=== PATIENT | female | born 1945 | race Caucasian/White ===

== ENCOUNTER → 2016-12-27 | Outpatient (CLI) | payer MEDICARE, OTHER ==
[~2016-12-27] MED LIST: CYCL5TAB PO; DILT180C52 PO; FENT1PAT65 TOP; FISH1CAP2 PO; GABA-336 PO; LEVO150T11 PO; METO25TA6 PO; MULT-806 PO; OMEP40CA52 PO; OXYC15TA50 PO
== END ==
LOC: WC.BC 14:48
DX: Z12.31 Encounter for screening mammogram for malignant neoplasm of breast (principal); N64.59 Other signs and symptoms in breast; Z80.3 Family history of malignant neoplasm of breast
CPT/HCPCS: 77063; G0202

== ENCOUNTER 2017-07-17 12:01 | Observation (INO) ==
[2017-07-17] MEDS: SALINE FLUSH 10ml SYRINGE IVF PRN ×3 (12:27→20:27)
--- NOTE | 2017-07-17 12:35 | Emergency Department Report ---
SOB HPI - General Chief Complaint: Recheck/Abnormal Lab/Rx Stated Complaint: soa Time Seen by Provider: 07/17/17 12:20 Source: patient Mode of arrival: ambulatory Limitations: no limitations - History of Present Illness Pt presents with a c/o increasing SOA over the last several weeks. She reports having lab drawn at her PCP office who then called her today to be seen in the ED 2/2 a resulted D dimer of over 2000. Pt has a history of post op PE in 2008 and is not currently on any anticoagulant. MD Complaint: shortness of breath, chest pain Onset (ago): week(s) Severity: mild Consistency/Duration: constant Relieving factors: nothing Exacerbating factors: nothing Associated symptoms: chest pain Treatment prior to arrival: none - Related Data Home Medications Medication Instructions Recorded Confirmed dilTIAZem HCl [Cartia Xt] 180 mg PO DAILY #0 08/05/11 07/17/17 Levothyroxine Sodium 150 mcg PO SUTUTHSA #0 tab 03/07/15 07/17/17 [place]-3 Fatty Acids/Fish Oil [Fish 3,000 mg PO DAILY #0 cap 03/07/15 07/17/17 Oil 1,000 mg Capsule] Omeprazole 40 mg PO DAILY #0 cap 03/07/15 07/17/17 Gabapentin 100 mg PO BID #0 cap 03/08/15 07/17/17 Cetirizine HCl [Zyrtec] 10 mg PO DAILY 07/17/17 07/17/17 Cholecalciferol (Vitamin D3) 50,000 unit PO WEEKLY 07/17/17 07/17/17 [Vitamin D3] Diclofenac [Voltaren] 1 applic TP PRN PRN 07/17/17 07/17/17 Docusate Calcium [Stool Softener] 240 mg PO BID 07/17/17 07/17/17 FentaNYL PATCH [Duragesic Patch] 25 mcg TD WEEKLY 07/17/17 07/17/17 Levothyroxine Sodium 125 mcg PO MOWEFR 07/17/17 07/17/17 Melatonin 10 mg PO HS PRN 07/17/17 07/17/17 Metoprolol Succinate 75 mg PO DAILY 07/17/17 07/17/17 Previous Rx's Medication Instructions Recorded Rivaroxaban [Xarelto] 15 mg PO BID 21 Days #42 tab 07/18/17 Rivaroxaban [Xarelto] 20 mg PO WS #30 tab 07/18/17 Allergies Allergy/AdvReac Type Severity Reaction Status Date / Time iodine Allergy Intermediate SWELLING Verified 07/17/17 12:06 levofloxacin Allergy Intermediate CHEST PAIN Verified 07/17/17 12:06 codeine Allergy Mild NAUSEA, Verified 07/17/17 12:06 RELUX, CHEST PAIN lisinopril Allergy Mild PROBLEMS Verified 07/17/17 12:06 BREATHING sulfamethoxazole Allergy Mild NAUSEA, Verified 07/17/17 12:06 ANAPHYLAXSIS trimethoprim Allergy Mild NAUSEA, Verified 07/17/17 12:06 ANAPHYLAXSIS morphine Allergy Unknown CHEST PAIN Verified 07/17/17 12:06 vancomycin Allergy Unknown Verified 07/17/17 12:06 solifenacin [From [facility]] Allergy Verified 07/17/17 12:06 Review of Systems All systems: reviewed and negative except as stated Constitutional: Denies: fever, chills ENT: Denies: congestion Cardiovascular: Reports: chest pain. Denies: palpitations Respiratory: Reports: dyspnea. Denies: cough Gastrointestinal: Denies: nausea, vomiting Neurological: Denies: weakness Psychiatric: Denies: anxiety PFSH Patient Stated Medical History Other HEENT Yes: wears glasses Hypertension Yes Pulmonary Embolism Yes Clinic Medical History Bilateral pulmonary embolism (Acute Medical) - Social History Smoking status: Never smoker Physical Exam - Limitations Limitations: no limitations - General General appearance: alert, in no apparent distress - Normal Exams: Head:: Normocephalic without trauma Neck:: Full range of motion, without adenopathy Chest/Respirations:: Clear all claudio, with good airflow, and symmetry bilaterally Cardiovascular:: Regular rate and rhythm, without murmur or gallop, Pulses 2+ all extremities Abdomen:: Bowel sounds positive, soft, non-tender, non-distended Musculoskeletal:: No tenderness, or deformity noted, good range of motion, all extremities Integumentary:: No rashes Neurological:: Patient is alert, and oriented, cranial nerves, motor/sensory/ cerebellar, exams w/o gross deficits, to observation Psychiatric:: Patient exhibits, appropriate attention, emotion and affect Course Vital Signs Temperature 97.5 F 07/17/17 12:06 Pulse Rate 68 07/17/17 12:06 Respiratory Rate 19 07/17/17 12:06 Blood Pressure 168/73 H 07/17/17 12:06 Pulse Oximetry 94 07/17/17 12:06 Temperature 95.6 F L 07/18/17 07:21 Pulse Rate 62 07/18/17 11:50 Respiratory Rate 14 07/18/17 11:50 Blood Pressure 179/78 H 07/18/17 11:50 Pulse Oximetry 98 07/18/17 11:50 Shortness of Breath/Dyspnea - [facility] Narrative Medical decision making narrative: Labs reviewed and although D Dimer lower than what was reported by PCP office CT reveals scattered PEs to right and left lungs. Results discussed with pt. Pt to be admitted to hospitalist for continued care. Initial Lovenox ordered. - Differential Diagnosis Likely: acute exacerbation of chronic obstructive airways disease, congestive heart failure, community acquired pneumonia, pulmonary embolism - Lab Data Attestation: I reviewed the patient's lab results. Result diagrams: 07/17/17 12:28 07/17/17 12:28 Lab Results 07/17/17 07/17/17 07/17/17 Range/Units 12:28 12:28 12:28 WBC 7.3 (4.5-11.0) T/MM3 RBC 5.45 H (4.00-5.20) M/MM3 Hgb 15.3 (12-16) GM/DL Hct 47.5 H (36-46) % MCV 87.2 (80-100) UM3 MCH 28.1 (26-34) UUG MCHC 32.2 (31-37) GM/DL RDW Std Deviation 42.3 (36.9-50.2) FL Plt Count 206 (130-400) T/MM3 MPV 9.7 (9.4-12.4) UM3 Neutrophils % (Manual) 64.0 (33-66) % Lymphocytes % (Manual) 29.0 (23-45) % Monocytes % (Manual) 1.0 (0-9.0) % Eosinophils % (Manual) 5.0 H (0-4) % Basophils % (Manual) 1.0 (0-2) % Neutrophils # (Manual) 4.7 (1.8-7.7) T/MM3 Lymphocytes # (Manual) 2.1 (1-4.8) T/MM3 Monocytes # (Manual) 0.1 (0-0.8) T/MM3 Eosinophils # (Manual) 0.4 (0-0.5) T/MM3 Basophils # (Manual) 0.1 (0-0.2) T/MM3 RBC Morph Comment Normal D-Dimer 532 H (0-230) NG/ML Turbidity 23 H (0-20) Sodium 143 (134-144) MEQ/L Potassium 4.3 (3.6-5) MEQ/L Chloride 106 (98-107) MEQ/L Carbon Dioxide 27 (22-30) MEQ/L Anion Gap 10 (5-15) MEQ/L BUN 26.0 H (7-17) MG/DL Creatinine 1.0 (0.7-1.2) MG/DL GFR Calculation 55 BUN/Creatinine Ratio 26 (6-26) RATIO Glucose 120 H (65-110) MG/DL Calculated Osmolality 281 H (261-280) MOSM/KG Calcium 9.4 (8.4-10.2) MG/DL Total Bilirubin 0.70 (0.20-1.30) MG/DL Icterus Index < 2 (0-7) AST 41 H (14-36) U/L ALT 72 H (9-52) U/L Alkaline Phosphatase 108 (38-126) U/L Troponin I 0.023 (0-0.12) ng/ml Total Protein 7.4 (6.3-8.2) G/DL Albumin 4.3 (3.5-5.0) G/DL Globulin 3.1 (2.4-3.6) G/DL Albumin/Globulin Ratio 1.4 (1.1-2.2) RATIO Specimen Hemolysis < 15 (0-25) - Radiology Data Attestation: I reviewed the patient's radiology results. (per radiologist read) Disposition Clinical Impression: PE Disposition: 02 To OBS [facility] Condition: Stable - Seen By: midlevel
[2017-07-17] MEDS ORDERED: DiphenhydrAMINE 50 MG/ML INJECTION IVP ONE (12:47)
[2017-07-17] MEDS ORDERED: IOHEXOL 350mg/ml 75ml INJECTION ONE (12:53)
[2017-07-17] MEDS ORDERED: NS 100 ML ONE (12:53)
[2017-07-17] MEDS ORDERED: SALINE FLUSH 10ml SYRINGE ONE (12:53)
--- OUTSIDE RECORDS SUMMARY | 2017-07-17 13:27 | External Medical Summary | Referral Summary ---
:1945 Author Organization [facility] Address [address] [place] [address] [place] [phone] Care Team Providers Name Role Phone Moon Ruiz Primary Care Physician Encounter VC Date(s): 10/20/15 - 10/20/15 [facility] [address] [place] [phone]- [place] Discharge Diagnosis: Chronic low back pain Discharge Diagnosis: Excessive cerumen in right ear canal Discharge Disposition: 01-Home or Self Care Attending Physician: Moon Ruiz DO Admitting Physician: Moon Ruiz DO Vital Signs Most recent to oldest [Reference Range]: 1 Temperature Tympanic [36.6-38.1 degC] 36.9 degC (10/20/15 7:57 AM) Peripheral Pulse Rate [60-100 bpm] 69 bpm (10/20/15 7:57 AM) Respiratory Rate [14-20 br/min] 17 br/min (10/20/15 7:57 AM) Blood Pressure [90-140/60-90 mmHg] 130/80 mmHg (10/20/15 7:57 AM) SpO2 98 % (10/20/15 7:57 AM) Problem List Condition Effective Dates Status Health Status Informant Allergy(Confirmed) Active Asthma(Confirmed) Active Atrial fibrillation(Confirmed) Active Automatic implantable cardiac Active defibrillator in situ(Confirmed) Bladder problem(Confirmed) Active Chicken pox(Confirmed) Active Chronic low back pain(Confirmed) Active Congestive heart failure(Confirmed) Active Depression(Confirmed) Active Blood clots lungs/legs(Confirmed) Active Dysuria(Confirmed) Active GERD (gastroesophageal reflux Active disease)(Confirmed) Goiter(Confirmed) Active Gout(Confirmed) Active Heart disease(Confirmed) Active Hepatitis(Confirmed) Active Hypertension(Confirmed) Active Hyperthyroidism(Confirmed) Resolved Hypertrophic Active cardiomyopathy(Confirmed) Hypothyroidism(Confirmed) Active Incontinence - stress(Confirmed) Active Urine Infection(Confirmed) Active Irregular heart rhythm(Confirmed) Active Low back pain(Confirmed) Active Lumbosacral radiculopathy(Confirmed) Active Coumadin use - penitentiary current use Active anticoagul(Confirmed) Migraine headache(Confirmed) Active OA (osteoarthritis)(Confirmed) Active Onychomycosis/mycotic Active nail(Confirmed) Pain in limb(Confirmed) Active Postlaminectomy syndrome(Confirmed) Active Recurrent UTI(Confirmed) Active Assymetrical septal Active hypertrophy(Confirmed) high sun exposure, history of 4 Active blistering sunburns(Confirmed) Tension headache(Confirmed) Active Thyroid disease(Confirmed) Active TMJ (dislocation of Active temporomandibular joint)(Confirmed) Trigonitis with hematuria(Confirmed) Active Ventricular tachycardia(Confirmed) Active Allergies, Adverse Reactions, Alerts Substance Reaction Severity Status codeine nausea,reflux,chest pain Active pain iodine Angiodema Mild Active levofloxacin Adverse Reaction Active chest pain lisinopril problems breathing Mild Active Adverse Reaction metoprolol Anaphylaxis Severe Active mirtazapine HEADACHES Active morphine jerking, chest pain- possible Active nitrofurantoin unknown Active sulfamethoxazole nausea Severe Active anaphylaxsis trimethoprim nausea Severe Active anaphylaxsis Medications Cardizem CD 180 mg/24 hours oral capsule, extended release See Instructions, 1 CAPS ORAL BID, # 60 caps, 3 Refill(s), eRx: [facility] [id number], 1 CAPS ORAL BID Start Date: 07/11/15 Status: Orderedcyclobenzaprine 10 mg oral tablet 10 mg 1 tabs, Oral, Daily, # 30 tabs, 0 Refill(s) Start Date: 07/20/15 Status: OrderedfentaNYL 25 mcg/hr transdermal film, extended release 1 patches, Topical, q72hr, as directed on package labeling / DO NOT FILL UNTIL , # 10 patches, 0 Refill(s) Start Date: 09/27/15 Status: OrderedFish Oil 1000 mg oral capsule 1,000 mg 1 caps, Oral, BID, 0 Refill(s) Start Date: 07/07/14 Status: Orderedgabapentin 100 mg oral capsule See Instructions, 1 CAPS ORAL TID, # 270 caps, 1 Refill(s), Pharmacy: [facility] [id number], 1 CAPS ORAL TID Start Date: 07/27/15 Status: OrderedGinseng Ginseng, 1,000 mg, PRN Other (See Comment), 0 Refill(s) Start Date: 10/11/15 Status: Orderedlevothyroxine 150 mcg (0.15 mg) oral tablet 150 mcg 1 tabs, Oral, Daily, Recheck TSH in 3 months, # 90 tabs, 0 Refill(s), Pharmacy: [place], [place], 1 tabs Oral Daily,Instr:Recheck TSH in 3 months Start Date: 10/20/15 Status: Orderedmetoprolol tartrate 25 mg oral tablet 25 mg 1 tabs, Oral, Daily, 0 Refill(s) Start Date: 01/26/15 Status: OrderedMucinex D 600 mg, Oral, BID, 0 Refill(s) Start Date: 10/11/15 Status: OrderedoxyCODONE 15 mg oral tablet 7.5 mg 0.5 tabs, Oral, q6hr, as needed for pain, # 30 tabs, 0 Refill(s), other reason (Rx) Start Date: 10/02/15 Status: OrderedPriLOSEC 40 mg oral delayed release capsule See Instructions, TAKE 1 TABLET BY MOUTH EVERY DAY., # 90 caps, 1 Refill(s), Pharmacy: [facility] [id number], TAKE 1 TABLET BY MOUTH EVERY DAY. Start Date: 08/15/15 Status: OrderedSingulair 10 mg oral tablet See Instructions, 1 TABS ORAL QPM, # 30 tabs, 3 Refill(s), eRx: [facility] [id number], 1 TABS ORAL QPM Start Date: 09/12/15 Status: OrderedStool softner Stool softner, 250 mg, BID, 0 Refill(s) Start Date: 10/11/15 Status: OrderedVoltaren Topical See Instructions, Pain, unk dose, 0 Refill(s) Start Date: 10/11/15 Status: Orderedzolpidem 5 mg oral tablet 5 mg 1 tabs, Oral, Bedtime (once a day), as needed for sleep, Ayde Tan [phone], # 30 tabs, 5 Refill(s), CAN FILL ON 02-24-15 Start Date: 07/20/15 Status: Ordered Results Chemistry Most recent to oldest [Reference Range]: 1 Sodium Lvl [135-144 mEq/L] 142 mEq/L (10/20/15 7:48 AM) Potassium Lvl [3.5-5.2 mEq/L] 4.1 mEq/L (10/20/15 7:48 AM) Chloride [99-111 mEq/L] 105 mEq/L (10/20/15 7:48 AM) CO2 [22-31 mEq/L] 29 mEq/L (10/20/15 7:48 AM) AGAP [3-20] 8 (10/20/15 7:48 AM) BUN [10-20 mg/dL] 22 mg/dL *HI* (10/20/15 7:48 AM) Glucose Lvl [70-99 mg/dL] 127 mg/dL *HI* (10/20/15 7:48 AM) Creatinine Lvl [0.57-1.11 mg/dL] 0.85 mg/dL (10/20/15 7:48 AM) eGFR [>60 mL/min] >60 mL/min 1 (10/20/15 7:48 AM) Calcium Lvl [8.9-10.5 mg/dL] 9.1 mg/dL (10/20/15 7:48 AM) Albumin Lvl [3.4-4.8 gm/dL] 4.0 gm/dL (10/20/15 7:48 AM) Total Protein [6.2-8.1 gm/dL] 6.5 gm/dL (10/20/15 7:48 AM) Globulin [1.8-4.0 gm/dL] 2.5 gm/dL (10/20/15 7:48 AM) ALT [0-55 U/L] 37 U/L (10/20/15 7:48 AM) AST [5-34 U/L] 32 U/L (10/20/15 7:48 AM) Alk Phos [40-150 U/L] 103 U/L (10/20/15 7:48 AM) Bili Total [0.2-1.2 mg/dL] 0.4 mg/dL (10/20/15 7:48 AM) 1Result Comment: Multiply eGFR results by 1.21 for race. Immunizations Vaccine Date Refusal Reason pneumococcal 13-valent conjugate vaccine 05/30/15 pneumococcal 23-polyvalent vaccine 10/10/08 tetanus/diphtheria/pertussis, acel(Tdap) 10/10/08 zoster vaccine live 06/08/13 Procedures Procedure Date Related Diagnosis Body Site Rt L5-S1 selective nerve root block 10/29/11 Lumbar/Thoracic mylogram 10/23/11 Caudal 06/25/11 Bilateral L5-S1 Facet 06/11/11 Colonoscopy 2010 Pacemaker care 2009 T9-L5 Fusion sythes1 06/12/09 Cystoscopy and urethral calibration2 09/22/06 Cystourethroscopy, removal of foreign body, 05/22/06 & sling3 suburethral Implantation 03/28/06 suburethral Implantation 02/19/06 suburethral Implantation 10/25/05 suburethral Implantation 09/04/05 suburethral Implantation4 08/07/05 Cataract extraction, bilateral 2004 Placement of defribrillator 2003 suburethral Implantation 09/05/99 suburethral Implantation 06/18/99 suburethral Implantation 05/23/99 Hysterectomy, partial 1975 Appendectomy 1964 Cholecystectomy Gallbladder Removal of defibrillator Surgery 1Dr. [id number]. [id number]. [id number]? Social History Social History Type Response Smoking Status Never smoker Assessment and Plan Extracted from: Title: Office Visit Note Author: Moon Ruiz DO Date: 10/20/15 Assessment/Plan Chronic low back pain Patient would like to continue current pain medication regimen at this time. Controlled substance agreement signed. Return to clinicin 3 months. Ordered: Office Visit Level 4 Est 25069 Excessive cerumen in right ear canal Ear lavage performed today with resolution of the impaction. Ordered: Office Visit Level 4 Est 05536 High risk medication use CMP today. We will also get a TSH for hypothyroidism since we are drawinglabs. Ordered: Comprehensive Metabolic Panel Office Visit Level 4 Est 73153
--- OUTSIDE RECORDS SUMMARY | 2017-07-17 13:27 | External Medical Summary | Referral Summary ---
:1945 Author Organization [facility] Address [address] [place] [address] Care Team Providers Name Role Phone Moon Ruiz Primary Care Physician Encounter VC Date(s): 01/12/15 - 01/12/15 [facility] [address] [place] [address]- [place] Discharge Diagnosis: Automatic implantable cardiac defibrillator in situ Discharge Diagnosis: Septal defect Discharge Diagnosis: Hypertrophic cardiomyopathy Discharge Diagnosis: Ventricular tachycardia Discharge Disposition: 01-Home or Self Care Attending Physician: Amada Santa MD Admitting Physician: Amada Santa MD Vital Signs Most recent to oldest [Reference Range]: 1 Peripheral Pulse Rate [60-100 bpm] 64 bpm (01/12/15 2:25 PM) Blood Pressure [90-140/60-90 mmHg] 124/72 mmHg (01/12/15 2:25 PM) Problem List Condition Effective Dates Status Health [...] heart rhythm(Confirmed) Active Low back pain(Confirmed) Active 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 anticoagul(Confirmed) Migraine headache(Confirmed) Active [...] BID, # 60 caps, 3 Refill(s), eRx: [facility] [id number], 1 CAPS ORAL BID Start Date: 07/11/15 Status: Orderedcyclobenzaprine 10 mg oral tablet 10 mg 1 tabs, Oral, Daily, # 30 tabs, 0 Refill(s) Start Date: 07/20/15 Status: OrderedfentaNYL 25 mcg/hr transdermal film, extended release 1 patches, Topical, q72hr, as directed on package labeling, # 10 patches, 0 Refill(s) Start Date: 06/29/15 Status: OrderedFish Oil 1000 mg oral capsule 1,000 mg 1 caps, Oral, BID, 0 Refill(s) Start Date: 07/07/14 Status: Orderedgabapentin 100 mg oral capsule See Instructions, 1 CAPS ORAL TID, # 90 caps, eRx: [facility] [id number], 1 CAPS ORAL TID Start Date: 07/18/15 Status: Orderedlevothyroxine 175 mcg (0.175 mg) oral tablet See Instructions, 1 TABS ORAL DAILY,INSTR:LAB TO BE RE CHECKED IN 2 MONTHS./ PLEASE NOTE NEW DOSE., #60 tabs, 2 Refill(s), eRx: [facility] [id number], 1 TABS ORAL DAILY,INSTR:LAB TO BE RE CHECKED IN 2 MONTHS./PLEASE NOTE NEW DOSE. Start Date: 04/19/15 Status: Orderedmetoprolol tartrate 25 mg oral tablet 25 mg 1 tabs, Oral, Daily, 0 Refill(s) Start Date: 01/26/15 Status: OrderedoxyCODONE 7.5 mg oral tablet See Instructions, 1 tabs Oral q4hr or q6h as needed for pain, # 60 tabs, 0 Refill(s) Start Date: 06/28/15 Status: OrderedPriLOSEC 40 mg oral delayed release capsule See Instructions, TAKE 1 TABLET BY MOUTH EVERY DAY., # 90 unknown unit, 3 Refill (s), eRx: [facility] [id number], TAKE 1 TABLET BY MOUTH EVERY DAY. Start Date: 07/21/14 Status: OrderedSingulair 10 mg oral tablet See Instructions, 1 TABS ORAL QPM, # 30 tabs, eRx: [facility] [id number], 1 TABS ORAL QPM Start Date: 07/14/15 Status: Orderedzolpidem 5 mg oral tablet 5 mg 1 tabs, Oral, Bedtime (once a day), as needed for sleep, Ayde Tan [phone], # 30 tabs, 5 Refill(s), CAN FILL ON 02-24-15 Start Date: 07/20/15 Status: Ordered Results No data available for this section Immunizations Vaccine Date Refusal Reason pneumococcal 13-valent conjugate vaccine 05/30/15 pneumococcal 23-polyvalent vaccine 10/10/08 tetanus/diphtheria/pertussis, acel(Tdap) 10/10/08 zoster vaccine live 06/08/13 Procedures Procedure Date Related Diagnosis Body Site Rt L5-S1 selective nerve root block 10/29/11 Lumbar/Thoracic mylogram 10/23/11 Caudal 06/25/11 Bilateral L5-S1 Facet 06/11/11 Colonoscopy 2011 Pacemaker care 2009 T9-L5 Fusion sythes1 06/12/09 Cystoscopy and urethral calibration2 09/22/06 Cystourethroscopy, removal of foreign body, 05/22/06 & sling3 suburethral Implantation 03/28/06 suburethral Implantation 02/19/06 suburethral Implantation 2/10/06 suburethral Implantation 09/04/05 suburethral Implantation4 08/07/05 Cataract extraction, bilateral 2005 Placement of defribrillator 2003 suburethral Implantation 09/05/99 suburethral Implantation 06/18/99 suburethral Implantation 05/23/99 Colonoscopy 1998 Hysterectomy, partial 1975 Appendectomy 1964 Cholecystectomy Gallbladder Removal of defibrillator Surgery 1Dr. [id number]. [id number]. [id number]? Social History Social History Type Response Smoking Status Never smoker Assessment and Plan Extracted from: Title: Office Visit Note Author: Amada Santa MD Date: 01/12/15 Assessment/Plan 1.Ventricular tachycardia Ordered: Icd Device Progr Eval Dual 62727 Office Visit Level 3 Est 63895 Return to Clinic 2.Automatic implantable cardiac defibrillator in situ Ordered: Icd Device Progr Eval Dual 40758 Office Visit Level 3 Est 76965 Return to Clinic 3.Hypertrophic cardiomyopathy Ordered: Icd Device Progr Eval Dual 66903 Office Visit Level 3 Est 99232 Return to Clinic Referrals to Other Providers Referred by: Amada Santa MD
--- OUTSIDE RECORDS SUMMARY | 2017-07-17 13:27 | External Medical Summary | Referral Summary ---
:1945 Author Organization [facility] Address [address] [place] [address] Care Team Providers Name Role Phone Moon Ruiz Primary Care Physician Encounter VC Date(s): 12/05/15 - 12/05/15 [facility] [address] [place] [address]- [place] Discharge Diagnosis: Automatic implantable cardiac defibrillator in situ Discharge Diagnosis: VT (ventricular tachycardia) Discharge Diagnosis: Hypertrophic cardiomyopathy Discharge Disposition: 01-Home or Self Care Attending Physician: Amada Santa MD Admitting Physician: Amada Santa MD Vital Signs No data available for this section Problem List Condition Effective Dates Status Health [...] Hyperthyroidism(Confirmed) Resolved Hypertrophic Active cardiomyopathy(Confirmed) Hypothyroidism(Confirmed) Active Pre-diabetes(Confirmed) Active Incontinence - stress(Confirmed) Active Urine Infection(Confirmed) Active Irregular heart rhythm(Confirmed) Active Low back pain(Confirmed) Active Lumbosacral radiculopathy(Confirmed) Active 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(Confirmed) Migraine headache(Confirmed) Active [...] lisinopril problems breathing Mild Active Adverse Reaction mirtazapine HEADACHES Active morphine jerking, chest pain- possible Active nitrofurantoin unknown Active sulfamethoxazole nausea Severe Active anaphylaxsis trimethoprim nausea Severe Active anaphylaxsis Medications Cardizem CD 180 mg/24 hours oral capsule, extended release See Instructions, 1 CAPS ORAL BID, # 60 caps, 3 Refill(s), Pharmacy: [facility] [place], [place], 1 CAPS ORAL BID Start Date: 11/16/15 Status: Orderedcyclobenzaprine 10 mg oral tablet 10 mg 1 tabs, Oral, Daily, # 30 tabs, 0 Refill(s) Start Date: 07/20/15 Status: OrderedfentaNYL 25 mcg/hr transdermal film, extended release 1 patches, Topical, q72hr, as directed on package labeling / DO NOT FILL UNTIL , # 10 patches, 0 Refill(s) Start Date: 11/29/15 Status: OrderedFish Oil 1000 mg oral capsule 1,000 mg 1 caps, Oral, BID, 0 Refill(s) Start Date: 07/07/14 Status: Orderedgabapentin 100 mg oral capsule See Instructions, 1 CAPS ORAL TID, # 270 caps, 1 Refill(s), [id number], 1 CAPS ORAL TID Start Date: 07/27/15 Status: OrderedGinseng Ginseng, 1,000 mg, PRN Other (See Comment), 0 Refill(s) Start Date: 10/11/15 Status: Orderedlevothyroxine 150 mcg (0.15 mg) oral tablet 150 mcg 1 tabs, Oral, Daily, Recheck TSH in 3 months, # 90 tabs, 0 Refill(s), Pharmacy: [facility] [place], [place], 1 tabs Oral Daily,Instr:Recheck TSH in 3 months Start Date: 10/20/15 Status: Orderedlidocaine 5% topical film 1 patches, Topical, Daily, # 30 patches, 0 Refill(s), Pharmacy: [facility] [place], [place] Start Date: 11/07/15 Status: Orderedmetoprolol succinate 50 mg oral tablet, extended release 25 mg 0.5 tabs, Oral, Daily, 0 Refill(s) Start Date: 12/05/15 Status: OrderedMucinex D 600 mg, Oral, BID, 0 Refill(s) Start Date: 10/11/15 Status: OrderedoxyCODONE 15 mg oral tablet 7.5 mg 0.5 tabs, Oral, q6hr, as needed for pain, # 30 tabs, 0 Refill(s), other reason (Rx) Start Date: 10/02/15 Status: OrderedPriLOSEC 40 mg oral delayed release capsule See Instructions, TAKE 1 TABLET BY MOUTH EVERY DAY., # 90 caps, 1 Refill(s), Pharmacy: [facility] [id number], TAKE 1 TABLET BY MOUTH EVERY DAY. Start Date: 08/15/15 Status: OrderedSingulair 10 mg oral tablet See Instructions, 1 TABS ORAL QPM, # 30 tabs, 3 Refill(s), eRx: [facility] [id number], 1 TABS ORAL QPM Start Date: 09/12/15 Status: OrderedStool softner Stool softner, 250 mg, BID, 0 Refill(s) Start Date: 10/11/15 Status: OrderedVoltaren Topical See Instructions, Pain, unk dose, 0 Refill(s) Start Date: 10/11/15 Status: Orderedzolpidem 10 mg oral tablet 5 mg 0.5 tabs, Oral, Bedtime (once a day), as needed for sleep, # 15 tabs, 0 Refill(s) Start Date: 11/09/15 Stop Date: 12/09/15 Status: Ordered Results No data available for this section Immunizations Vaccine Date Refusal Reason pneumococcal 13-valent conjugate vaccine 05/30/15 pneumococcal 23-polyvalent vaccine 10/10/08 tetanus/diphtheria/pertussis, acel(Tdap) 10/10/08 zoster vaccine live 06/08/13 Procedures Procedure Date Related Diagnosis Body Site Rt L5-S1 selective nerve root block 10/29/11 Lumbar/Thoracic mylogram 10/23/11 Caudal 06/25/11 Bilateral L5-S1 Facet 06/11/11 Colonoscopy 2011 Pacemaker care 2010 T9-L5 Fusion sythes1 06/12/09 Cystoscopy and urethral calibration2 09/22/06 Cystourethroscopy, removal of foreign body, 05/22/06 & sling3 suburethral Implantation 03/28/06 suburethral Implantation 02/19/06 suburethral Implantation 10/25/05 suburethral Implantation 09/04/05 suburethral Implantation4 08/07/05 Cataract extraction, bilateral 2004 Placement of defribrillator 2003 suburethral Implantation 09/05/99 suburethral Implantation 06/18/99 suburethral Implantation 05/23/99 Hysterectomy, partial 1975 Appendectomy 1964 Cholecystectomy Gallbladder Removal of defibrillator Surgery 1Dr. [id number]. [id number]. [id number]? Social History Social History Type Response Smoking Status Never smoker Assessment and Plan No data available for this section
--- OUTSIDE RECORDS SUMMARY | 2017-07-17 13:29 | External Medical Summary | Referral Summary ---
:1945 Author Organization [facility] Address [address] [place] [address] [place] [address] Care Team Providers Name Role Phone Moon Ruiz Primary Care Physician Encounter VC Date(s): 01/26/15 - 01/26/15 [facility] [address] [place] [address] [place] [phone] Discharge Diagnosis: Osteoarthritis Discharge Diagnosis: Back pain Discharge Disposition: 01-Home or Self Care Attending Physician: Tasha Mar MD Admitting Physician: Tasha Mar MD Referring Physician: Qi Whitehead MD Vital Signs Most recent to oldest [Reference Range]: 1 Peripheral Pulse Rate [60-100 bpm] 71 bpm (01/26/15 1:58 PM) Blood Pressure [90-140/60-90 mmHg] 144/77 mmHg *HI* (01/26/15 1:58 PM) Problem List Condition Effective Dates Status Health Status Informant Allergy(Confirmed) Active Asthma(Confirmed) Active Atrial fibrillation(Confirmed) Active Bladder problem(Confirmed) Active Chicken pox(Confirmed) Active Chronic [...] Low back pain(Confirmed) Active 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 anticoagul(Confirmed) Migraine headache(Confirmed) Active OA (osteoarthritis)(Confirmed) Active Onychomycosis/mycotic Active nail(Confirmed) Pain in limb(Confirmed) Active Postlaminectomy syndrome(Confirmed) Active Recurrent UTI(Confirmed) Active Assymetrical septal Active hypertrophy(Confirmed) high sun exposure, history of 4 Active blistering sunburns(Confirmed) Tension headache(Confirmed) Active Thyroid disease(Confirmed) Active TMJ (dislocation of Active temporomandibular joint)(Confirmed) Trigonitis with hematuria(Confirmed) Active Allergies, Adverse Reactions, Alerts Substance Reaction [...] BID, # 60 caps, 3 Refill(s), eRx: [facility] [id number], 1 CAPS ORAL BID Start Date: 07/11/15 Status: Orderedcyclobenzaprine 10 mg oral tablet See Instructions, TAKE ONE TABLET BY MOUTH THREE TIMES A DAY, # 90 tabs, 2 Refill(s), eRx: [facility] #[id number], TAKE ONE TABLET BY MOUTH THREE TIMES A DAY Start Date: 06/20/15 Status: OrderedfentaNYL 25 mcg/hr transdermal film, extended release 1 patches, Topical, q72hr, as directed on package labeling, # 10 patches, 0 Refill(s) Start Date: 06/29/15 Status: OrderedFish Oil 1000 mg oral capsule 3,000 mg, Oral, Daily, 0 Refill(s) Start Date: 07/07/14 Status: Orderedgabapentin 100 mg oral capsule See Instructions, 1 CAPS ORAL TID, # 90 caps, eRx: [facility] [id number], 1 CAPS ORAL TID Start Date: 07/18/15 Status: Orderedlevothyroxine 175 mcg (0.175 mg) oral tablet See Instructions, 1 TABS ORAL DAILY,INSTR:LAB TO BE RE CHECKED IN 2 MONTHS./ PLEASE NOTE NEW DOSE., #60 tabs, 2 Refill(s), eRx: [facility] [id number], 1 TABS ORAL DAILY,INSTR:LAB TO BE RE [...] 90 unknown unit, 3 Refill (s), eRx: [facility] [id number], TAKE 1 TABLET BY MOUTH EVERY DAY. Start Date: 07/21/14 Status: OrderedSingulair 10 mg oral tablet See Instructions, 1 TABS ORAL QPM, # 30 tabs, eRx: [facility] [id number], 1 TABS ORAL QPM Start Date: 07/14/15 Status: Orderedzolpidem 5 mg oral tablet 5 mg 1 tabs, Oral, Bedtime (once a day), as needed for sleep, Ayde Tan [phone], # 30 tabs, 0 Refill(s), CAN FILL ON 02-24-15 Start Date: 06/19/15 Status: Ordered Results No data available for [...] Cholecystectomy Gallbladder Removal of defibrillator Surgery 1Dr. [id number]. [id number]. [id number]? Social History Social History Type Response Smoking Status Never smoker Assessment and Plan Extracted from: Title: Office note Author: Tasha Mar MD Date: 01/26/15 Assessment/Plan Back pain We will stop the gabapentin and we will try pregabalin at a lower dose 75 mg twice daily which we can titrate based on how she does. She will let us know she does with the medications. We discussed also being seen by advanced pain management to try to manage her medications and determine if there may be meds that she will better tolerate such as by parenteral administration. Osteoarthritis I sent in a prescription for diclofenac gel. She will let us knowif any problems with cost. I also discussed possible injections of her 1st MTPs which she does not want to pursue currently. Orders: pregabalin, 75 mg 1 caps, Oral, BID, # 60 caps, 0 Refill(s)
--- OUTSIDE RECORDS SUMMARY | 2017-07-17 13:34 | External Medical Summary | Referral Summary ---
:1945 Author Organization [facility] Address [address] [place] [address] [place] [address] Care Team Providers Name Role Phone Moon Ruiz Primary Care Physician Encounter VC Date(s): 07/27/15 - 07/27/15 [facility] [address] [place] [address] [place] [phone] Discharge Diagnosis: Spinal stenosis Discharge Diagnosis: Primary generalized (osteo)arthritis Discharge Disposition: 01-Home or Self Care Attending Physician: Tasha Mar MD Admitting Physician: Tasha Mar MD Referring Physician: Moon Ruiz DO Vital Signs Most recent to oldest [Reference Range]: 1 Peripheral Pulse Rate [60-100 bpm] 73 bpm (07/27/15 8:47 AM) Blood Pressure [90-140/60-90 mmHg] 138/81 mmHg (07/27/15 8:47 AM) Problem List Condition Effective Dates Status [...] Low back pain(Confirmed) Active Coumadin use - snf current use Active anticoagul(Confirmed) Migraine headache(Confirmed) Active [...] BID, # 60 caps, 3 Refill(s), eRx: [facility] [id number], 1 CAPS ORAL BID Start Date: 07/11/15 Status: Orderedcyclobenzaprine 10 mg oral tablet 10 mg 1 tabs, Oral, Daily, # 30 tabs, 0 Refill(s) Start Date: 07/20/15 Status: OrderedfentaNYL 25 mcg/hr transdermal film, extended release 1 patches, Topical, q72hr, as directed on package labeling MAY NOT FILL UNTIL 07-30-15, # 10 patches, 0 Refill(s) Start Date: 07/27/15 Status: OrderedFish Oil 1000 mg oral capsule 1,000 mg 1 caps, Oral, BID, 0 Refill(s) Start Date: 07/07/14 Status: Orderedgabapentin 100 mg oral capsule See Instructions, 1 CAPS ORAL TID, # 270 caps, 1 Refill(s), Pharmacy: [facility] [id number], 1 CAPS ORAL TID Start Date: 07/27/15 Status: Orderedlevothyroxine 175 mcg (0.175 mg) oral tablet See Instructions, 1 TABS ORAL DAILY,INSTR:LAB TO BE RE CHECKED IN 2 MONTHS./ PLEASE NOTE NEW DOSE., #60 tabs, 2 Refill(s), eRx: [facility] [id number], 1 TABS ORAL DAILY,INSTR:LAB TO BE RE [...] 90 unknown unit, 3 Refill (s), eRx: [facility] [id number], TAKE 1 TABLET BY MOUTH EVERY DAY. Start Date: 07/21/14 Status: OrderedSingulair 10 mg oral tablet See Instructions, 1 TABS ORAL QPM, # 30 tabs, eRx: [facility] [id number], 1 TABS ORAL QPM Start Date: 07/14/15 Status: Orderedzolpidem 5 mg oral tablet 5 mg 1 tabs, Oral, Bedtime (once a day), as needed for sleep, Ayde Tan [phone], # 30 tabs, 5 Refill(s), CAN FILL [...] Cholecystectomy Gallbladder Removal of defibrillator Surgery 1Dr. [id number]. [id number]. [id number]? Social History Social History Type Response Smoking Status Never smoker Assessment and Plan Extracted from: Title: Office Visit Note Author: Tasha Mar MD Date: 07/27/15 Assessment/Plan 1.Primary generalized (osteo)arthritis She is on chronic pain medications with her PCP. We also discussed possibly tryingtumeric supplement to assess if this helps with her discomfort. 2.Spinal stenosis Continue the gabapentin. We will obtain a CT scan without contrast of the thoracic and lumbar spine and refer to see one of the surgeons in [place]. Follow-upin 6months or sooner if needed. Orders: gabapentin, See Instructions, 1 CAPS ORAL TID, # 270 caps, 1 Refill(s ), Pharmacy: [facility] [id number], 1 CAPS ORAL TID
--- OUTSIDE RECORDS SUMMARY | 2017-07-17 13:34 | External Medical Summary | Referral Summary ---
:1945 Author Organization [facility] Address [address] [place] [address] [place] [address] Care Team Providers Name Role Phone Moon Ruiz Primary Care Physician Encounter VC Date(s): 10/11/16 - 10/11/16 [facility] [address] [place] [phone] [place] Discharge Diagnosis: Chronic low back pain Discharge Disposition: 01-Home or Self Care Attending Physician: Moon Ruiz DO Admitting Physician: Moon Ruiz DO Vital Signs Most recent to oldest [Reference Range]: 1 Temperature Tympanic [36.6-38.1 degC] 36.6 degC (10/11/16 1:40 PM) Peripheral Pulse Rate [60-100 bpm] 76 bpm (10/11/16 1:40 PM) Respiratory Rate [14-20 br/min] 18 br/min (10/11/16 1:40 PM) Blood Pressure [90-140/60-90 mmHg] 130/74 mmHg (10/11/16 1:40 PM) SpO2 98 % (10/11/16 1:40 PM) Problem List Condition Effective Dates Status [...] Active Lumbosacral radiculopathy(Confirmed) Active Coumadin use - residential current use Active anticoagul(Confirmed) Migraine headache(Confirmed) Active [...] 180 mg/24 hours oral capsule, extended release 180 mg 1 caps, Oral, Daily, # 90 caps, 0 Refill(s), [facility]acy: [facility], 1 caps Oral Daily Start Date: 08/15/16 Status: Orderedcyclobenzaprine 10 mg oral tablet See Instructions, 1/2 to 1 tabs Oral bid as needed, # 180 tabs, 5 Refill(s), Pharmacy: [facility], 1/2 to 1 tabs Oral bid as needed Start Date: 07/25/16 Status: OrderedCymbalta 60 mg oral delayed release capsule 60 mg 1 caps, Oral, Daily, do not crush or chew, # 30 caps, 1 Refill(s), Pharmacy: [facility], 1 caps Oral Daily,Instr:do not crush or chew Start Date: 08/28/16 Status: OrderedfentaNYL 25 mcg/hr transdermal film, extended release 1 patches, Topical, q72hr, # 10 patches, 0 Refill(s) Start Date: 10/11/16 Status: OrderedFish Oil 1000 mg oral capsule 1,000 mg 1 caps, Oral, BID, 0 Refill(s) Start Date: 07/07/14 Status: OrderedGinseng Ginseng, 1,000 mg, PRN Other (See Comment), 0 Refill(s) Start Date: 10/11/15 Status: Orderedlevothyroxine 125 mcg (0.125 mg) oral tablet See Instructions, TAKE ONE TABLET BY MOUTH EVERY DAY, # 30 tabs, 5 Refill(s), eRx: [facility], TAKE ONE TABLET BY MOUTH EVERY DAY Start Date: 04/29/16 Status: Orderedmetoprolol succinate 50 mg oral tablet, extended release 25 mg 0.5 tabs, Oral, Daily, 0 Refill(s) Start Date: 12/05/15 Status: Orderedomeprazole 40 mg oral delayed release capsule See Instructions, TAKE ONE CAPSULE BY MOUTH DAILY, # 90 caps, 1 Refill(s), Pharmacy: [facility], TAKE ONE CAPSULE BY MOUTH DAILY Start Date: 08/15/16 Status: OrderedStool softner Stool softner, 250 mg, BID, 0 Refill(s) Start Date: 10/11/15 Status: OrderedVoltaren Topical See Instructions, Pain, unk dose, 0 Refill(s) Start Date: 10/11/15 Status: OrderedZyrTEC 10 mg oral tablet mg tabs, Oral, BID, 0 Refill(s) Start Date: 07/25/16 Status: Ordered Results No data available for this section Immunizations Given and Recorded Vaccine Date Status Refusal Reason influenza virus vaccine, inactivated 06/25/16 Recorded pneumococcal 13-valent conjugate vaccine 05/30/15 Given pneumococcal 23-polyvalent vaccine 10/10/08 Recorded tetanus/diphtheria/pertussis, acel(Tdap) 10/10/08 Recorded zoster vaccine live1 06/08/13 Recorded zoster vaccine live 06/08/13 Given 1Result Comment: [07/04/2014 Uncharted] dup - vrt 07/04/2014 Procedures Procedure Date Related Diagnosis Body Site Mammogram 12/25/15 Bone densimetry normal 06/28/15 Rt L5-S1 selective nerve root block 10/29/11 Lumbar/Thoracic mylogram 10/23/11 Caudal 06/25/11 Bilateral L5-S1 Facet 06/11/11 Colonoscopy 03/07/11 Pacemaker care 2009 T9-L5 Fusion sythes1 06/12/09 Vaginal Pap smear 10/10/08 Cystoscopy and urethral calibration2 09/22/06 Cystourethroscopy, removal of foreign body, 05/22/06 & sling3 suburethral Implantation 03/28/06 suburethral Implantation 02/19/06 suburethral Implantation 10/25/05 suburethral Implantation 09/04/05 suburethral Implantation4 08/07/05 Cataract extraction, bilateral 2004 Placement of defribrillator 2003 suburethral Implantation 09/05/99 suburethral Implantation 06/18/99 suburethral Implantation 05/23/99 Hysterectomy, partial 1975 Appendectomy 1964 Cholecystectomy Gallbladder Removal of defibrillator Surgery 1Dr. [id number]. [id number]. [id number]? Social History Social History Type Response Smoking Status Never smoker Assessment and Plan Extracted from: Title: Office Visit Note Author: Moon Ruiz DO Date: 10/11/16 Assessment/Plan Chronic low back pain Fentanyl refill today, no changes to regimen at this time. Ordered: Office Visit Level 4 Est 38878 Shortness of breath CXR normal, no hypoxia on ambulation her in clinic, EKG unchanged per Dr. Santa, troponin negative. Patient advised to return to clinic tim if she experiences another episode. Ordered: Office Visit Level 4 Est 20435 Extracted from: Title: Ambulatory Patient Education Author: Moon Ruiz DO Date: 10/11/16 Allergy Shortness of Breath Shortness of breath means you have trouble breathing. It could also mean that you have a medical problem. You should get immediate medical care for shortness of breath. CAUSES Not enough oxygen in the air such as with high altitudes or a smoke- filled room. Certain lung diseases, infections, or problems. Heart disease or conditions, such as angina or heart failure. Low red blood cells (anemia). Poor physical fitness, which can cause shortness of breath when you exercise. Chest or back injuries or stiffness. Being overweight. Smoking. Anxiety, which can make you feel like you are not getting enough air. DIAGNOSIS Serious medical problems can often be found during your physical exam. Tests may also be done to determine why you are having shortness of breath. Tests may include: Chest X-rays. Lung function tests. Blood tests. An electrocardiogram (ECG). An ambulatory electrocardiogram. An ambulatory ECG records your heartbeat patterns over a 24-hour period. Exercise testing. A transthoracic echocardiogram (TTE). During echocardiography, sound waves are used to evaluate how blood flows through your heart. A transesophageal echocardiogram (BRENDAN). Imaging scans. Your health care provider may not be able to find a cause for your shortness of breath after your exam. In this case, it is important to have a follow-up exam with your health care provider as directed. TREATMENT Treatment for shortness of breath depends on the cause of your symptoms and can vary greatly. HOME CARE INSTRUCTIONS Do not smoke. Smoking is a common cause of shortness of breath. If you smoke, ask for help to quit. Avoid being around chemicals or things that may bother your breathing, such as paint fumes and dust. Rest as needed. Slowly resume your usual activities. If medicines were prescribed, take them as directed for the full length of time directed. This includes oxygen and any inhaled medicines. Keep all follow-up appointments as directed by your health care provider. SEEK MEDICAL CARE IF: Your condition does not improve in the time expected. You have a hard time doing your normal activities even with rest. You have any new symptoms. SEEK IMMEDIATE MEDICAL CARE IF: Your shortness of breath gets worse. You feel light-headed, faint, or develop a cough not controlled with medicines. You start coughing up blood. You have pain with breathing. You have chest pain or pain in your arms, shoulders, or abdomen. You have a fever. You are unable to walk up stairs or exercise the way you normally do. MAKE SURE YOU: Understand these instructions. Will watch your condition. Will get help right away if you are not doing well or get worse. This information is not intended to replace advice given to you by your health care provider. Make sure you discuss any questions you have with your health care provider. Document Released: 05/27/2002 Document Revised: 09/06/2014 Document Reviewed: 11/16/2012 [employer] Interactive Patient Education 2016 [employer] No follow up information was provided.
--- OUTSIDE RECORDS SUMMARY | 2017-07-17 13:34 | External Medical Summary | Referral Summary ---
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 Start Date: 07/21/14 Status: OrderedSingulair 10 mg oral tablet See Instructions, 1 TABS ORAL QPM, # 30 tabs, eRx: [facility] [id number], 1 TABS ORAL QPM Start Date: 07/14/15 Status: Orderedzolpidem 5 mg oral tablet 5 mg 1 tabs, Oral, Bedtime (once a day), as needed for sleep, Ayde Tan [phone], # 30 tabs, 5 Refill(s), CAN FILL [...] Cholecystectomy Gallbladder Removal of defibrillator Surgery 1Dr. [id number]. [id number]. [id number]? Social History Social History Type Response Smoking [...]
--- OUTSIDE RECORDS SUMMARY | 2017-07-17 13:34 | External Medical Summary | Referral Summary ---
:1945 Author Organization [facility] Address [address] [place] [address] Care Team Providers Name Role Phone Moon Ruiz Primary Care Physician Encounter VC Date(s): 12/05/15 - 12/05/15 [facility] [address] [place] [address]- [place] Discharge Diagnosis: Hypertrophic cardiomyopathy Discharge Diagnosis: Septal defect Discharge Diagnosis: Ventricular tachycardia Discharge Disposition: 01-Home or Self Care Attending Physician: Amada Santa MD Admitting Physician: Amada Santa MD Vital Signs Most recent to oldest [Reference Range]: 1 Peripheral Pulse Rate [60-100 bpm] 72 bpm (12/05/15 2:08 PM) Blood Pressure [90-140/60-90 mmHg] 130/80 mmHg (12/05/15 2:08 PM) Problem List Condition Effective Dates Status [...] Active Lumbosacral radiculopathy(Confirmed) Active 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 anticoagul(Confirmed) Migraine headache(Confirmed) Active [...] BID, # 60 caps, 3 Refill(s), Pharmacy: [facility] [place], [place], 1 CAPS ORAL BID Start Date: [...] TID, # 270 caps, 1 Refill(s), Pharmacy: [id number], 1 CAPS ORAL TID Start Date: 07/27/15 Status: OrderedGinseng Ginseng, 1,000 mg, PRN Other (See Comment), 0 Refill(s) Start Date: 10/11/15 Status: Orderedlevothyroxine 150 mcg (0.15 mg) oral tablet 150 mcg 1 tabs, Oral, Daily, Recheck TSH in 3 months, # 90 tabs, 0 Refill(s), Pharmacy: [place], [place], 1 tabs Oral Daily,Instr:Recheck TSH in 3 months Start Date: 10/20/15 Status: Orderedlidocaine 5% topical film 1 patches, Topical, Daily, # 30 patches, 0 Refill(s), Pharmacy: [place], [place] Start Date: 11/07/15 Status: Orderedmetoprolol succinate [...] DAY., # 90 caps, 1 Refill(s), Pharmacy: [place] [id number], TAKE 1 TABLET BY MOUTH EVERY DAY. Start Date: 08/15/15 Status: OrderedSingulair 10 mg oral tablet See Instructions, 1 TABS ORAL QPM, # 30 tabs, 3 Refill(s), eRx: [id number], 1 TABS ORAL QPM Start Date: 09/12/15 [...] Cholecystectomy Gallbladder Removal of defibrillator Surgery 1Dr. [id number]. [id number]. [id number]? Social History Social History Type Response Smoking Status Never smoker Assessment and Plan Referrals to Other Providers Referred by: Amada Santa MD
--- OUTSIDE RECORDS SUMMARY | 2017-07-17 13:35 | External Medical Summary | Referral Summary ---
:1945 Author Organization [facility] [place] [address] Care Team Providers Name Role Phone Moon Ruiz Primary Care Physician Encounter VC Date(s): 07/09/16 - 07/09/16 [facility] [place] [phone] Discharge Diagnosis: Benign essential hypertension Discharge Diagnosis: Hyperglycemia Discharge Diagnosis: Acute bilateral back pain Discharge Diagnosis: Depression Discharge Diagnosis: Blurry vision, bilateral Discharge Disposition: 01-Home or Self Care Attending Physician: Moon Ruiz DO Admitting Physician: Moon Ruiz DO Vital Signs Most recent to oldest [Reference Range]: 1 Temperature Tympanic [36.6-38.1 degC] 36.3 degC *LOW* (07/09/16 8:14 AM) Peripheral Pulse Rate [60-100 bpm] 73 bpm (07/09/16 8:14 AM) Blood Pressure [90-140/60-90 mmHg] 114/66 mmHg (07/09/16 8:14 AM) SpO2 96 % (07/09/16 8:14 AM) Problem List Condition Effective Dates Status [...] Active Lumbosacral radiculopathy(Confirmed) Active 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 anticoagul(Confirmed) Migraine headache(Confirmed) Active [...] anaphylaxsis trimethoprim nausea Severe Active anaphylaxsis Medications Ambien 10 mg oral tablet 5 mg 0.5 tabs, Oral, Bedtime (once a day), as needed for sleep, Fax to [facility], # 30 tabs, 0 Refill(s) Start Date: 07/09/16 Status: OrderedCardizem CD 180 mg/24 hours oral capsule, extended release 180 mg 1 caps, Oral, Daily, # 90 caps, 0 Refill(s), [facility], 1 caps Oral Daily Start Date: 04/08/16 Status: Orderedcyclobenzaprine 10 mg oral tablet 10 mg 1 tabs, Oral, Daily, # 30 tabs, 0 Refill(s) Start Date: 07/20/15 Status: OrderedfentaNYL 25 mcg/hr transdermal film, extended release 1 patches, Topical, q72hr, as directed on package labeling, # 10 patches, 0 Refill(s) Start Date: 07/03/16 Status: OrderedFish Oil 1000 mg oral capsule 1,000 mg 1 caps, Oral, BID, 0 Refill(s) Start Date: 07/07/14 Status: Orderedgabapentin 100 mg oral capsule See Instructions, 2 CAPS ORAL TID, # 540 caps, 1 Refill(s), Pharmacy: [facility], please note change in dose. deactivate prior, 2 CAPS ORAL TID Start Date: 01/25/16 Status: OrderedGinseng Ginseng, 1,000 mg, PRN Other (See Comment), 0 Refill(s) Start Date: 10/11/15 Status: Orderedlevothyroxine 125 mcg (0.125 mg) oral tablet See Instructions, TAKE ONE TABLET BY MOUTH EVERY DAY, # 30 tabs, 5 Refill(s), eRx: [facility], TAKE ONE TABLET BY MOUTH EVERY DAY Start Date: 04/29/16 Status: Orderedmetoprolol succinate 50 mg oral tablet, extended release 25 mg 0.5 tabs, Oral, Daily, 0 Refill(s) Start Date: 12/05/15 Status: Orderedomeprazole 40 mg oral delayed release capsule See Instructions, TAKE ONE CAPSULE BY MOUTH DAILY, # 90 caps, 1 Refill(s), eRx: [facility], TAKE ONE CAPSULE BY MOUTH DAILY Start Date: 02/14/16 Status: OrderedoxyCODONE 15 mg oral tablet 7.5 mg 0.5 tabs, Oral, q6hr, as needed for pain, # 30 tabs, 0 Refill(s), other reason (Rx) Start Date: 10/02/15 Status: OrderedStool softner Stool softner, 250 mg, BID, 0 Refill(s) Start Date: 10/11/15 Status: OrderedVoltaren Topical See Instructions, Pain, unk dose, 0 Refill(s) Start Date: 10/11/15 Status: Ordered Results Chemistry Most recent to oldest [Reference Range]: 1 Sodium Lvl [135-144 mEq/L] 142 mEq/L (07/09/16 9:40 AM) Potassium Lvl [3.5-5.2 mEq/L] 4.7 mEq/L (07/09/16 9:40 AM) Chloride [99-111 mEq/L] 104 mEq/L (07/09/16 9:40 AM) CO2 [22-31 mEq/L] 27 mEq/L (07/09/16 9:40 AM) AGAP [3-20] 11 (07/09/16 9:40 AM) BUN [10-20 mg/dL] 24 mg/dL *HI* (07/09/16 9:40 AM) Glucose Lvl [70-99 mg/dL] 96 mg/dL (07/09/16 9:40 AM) Creatinine Lvl [0.57-1.11 mg/dL] 0.79 mg/dL (07/09/16 9:40 AM) eGFR [>60 mL/min] >60 mL/min 1 (07/09/16 9:40 AM) Calcium Lvl [8.9-10.5 mg/dL] 9.3 mg/dL (07/09/16 9:40 AM) Hgb A1c [4.1-5.6 %] 6.0 % *HI* (07/09/16 9:40 AM) eAvg Glucose 125.5 mg/dL (07/09/16 9:40 AM) 1Result Comment: Multiply eGFR results by [...] Cholecystectomy Gallbladder Removal of defibrillator Surgery 1Dr. [id number]. [id number]. [id number]? Social History Social History Type Response Smoking Status Never smoker Assessment and Plan Extracted from: Title: Office Visit Note Author: Moon Ruiz DO Date: 07/09/16 Assessment/Plan Acute bilateral back pain We will start with a thoracic spine x-ray as this is where it bothering her and depending on the results of this will call Dr. Caldwell's office to see if she needs CT sca n prior toappointment with him. She cannot have an MRI secondary to a implanted defibrillator. Continue current pain regimen at this time, return to clinic in 4-6 weeks. Ordered: Office Visit Level 4 Est 76963 Benign essential hypertension BMP today, continue current regimen, return to clinic in 4-6 weeks. Ordered: Basic Metabolic Panel Office Visit Level 4 Est 19614 Blurry vision, bilateral Out of the list of medications that could be the culprit she was unable to get off of the gabapentin, the oxycodone, cyclobenzaprine, the fentanyl so we will try getting off of the Ambien. From now on she will only use it if she absolutely needs to to sleep and try to limit it to once or twice a week and will take melatonin in its place. She will return to clinic in 4-6 weeks for reevaluation. Ordered: Office Visit Level 4 Est 04038 Depression At this time we will get her in with Reanna abel for counseling as she may find this more helpful. I will see her in 4-6 weeks for reevaluation. Ordered: Office Visit Level 4 Est 89081 Hyperglycemia A1c today with further recommendations after results. Ordered: Hemoglobin A1c Office Visit Level 4 Est 40724
--- OUTSIDE RECORDS SUMMARY | 2017-07-17 13:35 | External Medical Summary | Referral Summary ---
:1945 Author Organization [facility] Address [address] [place] [address] [place] [address] Care Team Providers Name Role Phone Moon Ruiz Primary Care Physician Encounter VC Date(s): 08/06/16 - 08/06/16 [facility] [address] [place] [phone] [place] Discharge Diagnosis: Chronic insomnia Discharge Diagnosis: Vision changes Discharge Diagnosis: Chronic low back pain Discharge Disposition: 01-Home or Self Care Attending Physician: Moon Ruiz DO Admitting Physician: Moon Ruiz DO Vital Signs Most recent to oldest [Reference Range]: 1 Temperature Tympanic [36.6-38.1 degC] 36.2 degC *LOW* (08/06/16 8:17 AM) Peripheral Pulse Rate [60-100 bpm] 72 bpm (08/06/16 8:17 AM) Respiratory Rate [14-20 br/min] 18 br/min (08/06/16 8:17 AM) Blood Pressure [90-140/60-90 mmHg] 98/68 mmHg (08/06/16 8:17 AM) SpO2 96 % (08/06/16 8:17 AM) Problem List Condition Effective Dates Status [...] Active Lumbosacral radiculopathy(Confirmed) Active Coumadin use - fdc current use Active anticoagul(Confirmed) Migraine headache(Confirmed) Active [...] Daily, # 90 caps, 0 Refill(s), Pharmacy: [email or web address], 1 caps Oral Daily Start Date: 04/08/16 Status: Orderedcyclobenzaprine 10 mg oral tablet See Instructions, 1/2 to 1 tabs Oral bid as needed, # 180 tabs, 5 Refill(s), Pharmacy: [email or web address], 1/2 to 1 tabs Oral bid as needed Start Date: 07/25/16 Status: OrderedfentaNYL 12 mcg/hr transdermal film, extended release 1 patches, Topical, q72hr, # 10 patches, 0 Refill(s) Start Date: 08/06/16 Status: OrderedFish Oil 1000 mg oral capsule 1,000 mg 1 caps, Oral, BID, 0 Refill(s) Start Date: 07/07/14 Status: Orderedgabapentin 100 mg oral capsule See Instructions, 2 CAPS ORAL TID, # 540 caps, 1 Refill(s), Pharmacy: [email or web address], please note change in dose. deactivate prior, 2 CAPS ORAL TID Start Date: 01/25/16 Status: OrderedGinseng Ginseng, 1,000 mg, PRN Other (See Comment), 0 Refill(s) Start Date: 10/11/15 Status: Orderedlevothyroxine 125 mcg (0.125 mg) oral tablet See Instructions, TAKE ONE TABLET BY MOUTH EVERY DAY, # 30 tabs, 5 Refill(s), eRx: [email or web address], TAKE ONE TABLET BY MOUTH EVERY DAY Start Date: 04/29/16 Status: Orderedmetoprolol succinate 50 mg oral tablet, extended release 25 mg 0.5 tabs, Oral, Daily, 0 Refill(s) Start Date: 12/05/15 Status: Orderedomeprazole 40 mg oral delayed release capsule See Instructions, TAKE ONE CAPSULE BY MOUTH DAILY, # 90 caps, 1 Refill(s), eRx: [email or web address], TAKE ONE CAPSULE BY MOUTH DAILY Start Date: 02/14/16 Status: OrderedStool softner Stool softner, 250 mg, [...] Cholecystectomy Gallbladder Removal of defibrillator Surgery 1Dr. [id number]. [id number]. [id number]? Social History Social History Type Response Smoking Status Never smoker Assessment and Plan Extracted from: Title: Office Visit Note Author: Moon Ruiz DO Date: 08/06/16 Assessment/Plan Chronic insomnia Continue melatonin,completely discontinue Ambien. Return to clinic in 6 weeks for reevaluation. Ordered: Office Visit Level 4 Est 87650 Chronic low back pain We will take her down to the 12 g fentanyl patch to see if we can taper her off this entirely as the nextthing we try to get offher regimento try to impact her vision changes. Ordered: Office Visit Level 4 Est 30195 Vision changes Unchanged after discontinuation of Ambien, we will try fentanyl next. Return to clinic in 6 weeks. Ordered: Office Visit Level 4 Est 94138 Extracted from: Title: Ambulatory Patient Education Author: Moon Ruiz DO Date: 08/06/16 Musculoskeletal Chronic Back Pain When back pain lasts longer than 3 months, it is called chronic back pain. People with chronic back pain often go through certain periods that are more intense (flare-ups). CAUSES Chronic back pain can be caused by wear and tear (degeneration) on different structures in your back. These structures include: The bones of your spine (vertebrae) and the joints surrounding your spinal cord and nerve roots (facets). The strong, fibrous tissues that connect your vertebrae (ligaments). Degeneration of these structures may result in pressure on your nerves. This can lead to constant pain. HOME CARE INSTRUCTIONS Avoid bending, heavy lifting, prolonged sitting, and activities which make the problem worse. Take brief periods of rest throughout the day to reduce your pain. Lying down or standing usually is better than sitting while you are resting. Take [id number] or prescription medicines only as directed by your caregiver. SEEK IMMEDIATE MEDICAL CARE IF: You have weakness or numbness in one of your legs or feet. You have trouble controlling your bladder or bowels. You have nausea, vomiting, abdominal pain, shortness of breath, or fainting. This information is not intended to replace advice given to you by your health care provider. Make sure you discuss any questions you have with your health care provider. Document Released: 10/09/2005 Document Revised: 11/23/2012 Document Reviewed: 08/15/2012 [employer] Interactive Patient Education 2016 [employer] No follow up information was provided.
--- OUTSIDE RECORDS SUMMARY | 2017-07-17 13:35 | External Medical Summary | Referral Summary ---
:1945 Author Organization [facility] [place] [address] Care Team Providers Name Role Phone Moon Ruiz Primary Care Physician Encounter VC Date(s): 11/07/15 - 11/07/15 [facility] [place] [address] [place] Discharge Diagnosis: Hypertension Discharge Diagnosis: Chronic low back pain Discharge Diagnosis: Prediabetes Discharge Diagnosis: Hypothyroidism Discharge Disposition: 01-Home or Self Care Attending Physician: Moon Ruiz DO Admitting Physician: Moon Ruiz DO Vital Signs Most recent to oldest [Reference Range]: 1 Peripheral Pulse Rate [60-100 bpm] 72 bpm (11/07/15 3:38 PM) Blood Pressure [90-140/60-90 mmHg] 155/65 mmHg *HI* (11/07/15 3:38 PM) Problem List Condition Effective Dates Status [...] Active Lumbosacral radiculopathy(Confirmed) Active Coumadin use - detention current use [...] BID, # 60 caps, 3 Refill(s), eRx: [facility] [address], 1 CAPS ORAL BID Start Date: 07/11/15 Status: Orderedcyclobenzaprine 10 mg oral tablet 10 mg 1 tabs, Oral, Daily, # 30 tabs, 0 Refill(s) Start Date: 07/20/15 Status: OrderedfentaNYL 25 mcg/hr transdermal film, extended release 1 patches, Topical, q72hr, as directed on package labeling / DO NOT FILL UNTIL , # 10 patches, 0 Refill(s) Start Date: 10/25/15 Status: OrderedFish Oil 1000 mg oral capsule 1,000 mg 1 caps, Oral, BID, 0 Refill(s) Start Date: 07/07/14 Status: Orderedgabapentin 100 mg oral capsule See Instructions, 1 CAPS ORAL TID, # 270 caps, 1 Refill(s), Pharmacy: [facility] [id number], 1 CAPS ORAL TID Start Date: 07/27/15 Status: OrderedGinseng Ginseng, 1,000 mg, PRN Other (See Comment), 0 Refill(s) Start Date: 10/11/15 Status: Orderedlevothyroxine 150 mcg (0.15 mg) oral tablet 150 mcg 1 tabs, Oral, Daily, Recheck TSH in 3 months, # 90 tabs, 0 Refill(s), Pharmacy: [place], [place], 1 tabs Oral Daily,Instr:Recheck TSH in 3 months Start Date: 10/20/15 Status: Orderedlidocaine 5% topical film 1 patches, Topical, Daily, # 30 patches, 0 Refill(s), Pharmacy: [place], [place] Start Date: 11/07/15 Status: Orderedmetoprolol tartrate 25 mg oral tablet [...] DAY., # 90 caps, 1 Refill(s), Pharmacy: [facility] [id number], TAKE 1 TABLET BY MOUTH EVERY DAY. Start Date: 08/15/15 Status: OrderedSingulair 10 mg oral tablet See Instructions, 1 TABS ORAL QPM, # 30 tabs, 3 Refill(s), eRx: [facility] [address], 1 TABS ORAL QPM Start Date: 09/12/15 Status: OrderedStool softner Stool softner, 250 mg, BID, 0 Refill(s) Start Date: 10/11/15 Status: OrderedVoltaren Topical See Instructions, Pain, unk dose, 0 Refill(s) Start Date: 10/11/15 Status: Orderedzolpidem 5 mg oral tablet 5 mg 1 tabs, Oral, Bedtime (once a day), as needed for sleep, Ayde Tan [phone], # 30 tabs, 5 Refill(s), CAN FILL [...] Implantation 06/18/99 suburethral Implantation 05/23/99 Hysterectomy, partial 1974 Appendectomy 1963 Cholecystectomy Gallbladder Removal of defibrillator Surgery 1Dr. [id number]. [id number]. [id number]? Social History Social History Type Response Smoking Status Never smoker Assessment and Plan Extracted from: Title: Office Visit Note Author: Moon Ruiz DO Date: 11/07/15 Assessment/Plan Chronic low back pain We will add Lidoderm patches. Patient is to follow- up as previously scheduled recent appointment. Ordered: Office Visit Level 4 Est 17520 Hypertension Blood pressure is elevated today. We will continue to monitor this at this time. Ordered: Office Visit Level 4 Est 54182 Hypothyroidism We will make the thyroid chancesmentioned onrecent lab letterand recheck in 3 months. Ordered: Office Visit Level 4 Est 29710 Prediabetes We discussed this diagnosis as well as multiple options for treatment including metformin or therapeutic lifestyle changes. Patient already exercises by walkingon average of 6-10 mil es a day. She knows the diet is where she needs to make her changes. We will let her do this and recheck in 6 months. We did discuss at that time if changes haven't had a positive impact we may need to add medication. Ordered: Office Visit Level 4 Est 87704 Orders: lidocaine topical, 1 patches, Topical, Daily, # 30 patches, 0 Refill( s), Pharmacy: [facility] [place] [place]
--- OUTSIDE RECORDS SUMMARY | 2017-07-17 13:36 | External Medical Summary | Referral Summary ---
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 anticoagul(Confirmed) Migraine headache(Confirmed) [...] BID, # 60 caps, 3 Refill(s), eRx: [facility] [id number], 1 CAPS ORAL BID Start Date: 07/11/15 Status: Orderedcyclobenzaprine 10 mg oral tablet 10 mg 1 tabs, Oral, Daily, # 30 tabs, 0 Refill(s) Start Date: 07/20/15 Status: OrderedfentaNYL 25 mcg/hr transdermal film, extended release 1 patches, Topical, q72hr, as directed on package labeling, # 10 patches, 0 Refill(s) Start Date: 08/30/15 Status: OrderedFish Oil 1000 mg oral capsule 1,000 mg 1 caps, Oral, BID, 0 Refill(s) Start Date: 07/07/14 Status: Orderedgabapentin 100 mg oral capsule See Instructions, 1 CAPS ORAL TID, # 270 caps, 1 Refill(s), Pharmacy: [facility] [id number], 1 CAPS ORAL TID Start Date: 07/27/15 Status: Orderedlevothyroxine 175 mcg (0.175 mg) oral tablet See Instructions, 1 TABS ORAL DAILY,INSTR:LAB TO BE RE CHECKED IN 2 MONTHS./ PLEASE NOTE NEW DOSE., #60 tabs, 2 Refill(s), eRx: [facility] [id number], 1 TABS ORAL DAILY,INSTR:LAB TO BE RE [...] DAY., # 90 caps, 1 Refill(s), Pharmacy: [facility] [address], TAKE 1 TABLET BY MOUTH EVERY DAY. Start Date: 08/15/15 Status: OrderedSingulair 10 mg oral tablet See Instructions, 1 TABS ORAL QPM, # 30 tabs, 3 Refill(s), [facility], 1 TABS ORAL QPM Start Date: 09/12/15 Status: Orderedzolpidem 5 mg oral tablet 5 mg 1 tabs, Oral, Bedtime (once a day), as needed for sleep, Ayde Tan [phone], # 30 tabs, 5 Refill(s), CAN FILL ON 02-24-15 Start Date: 07/20/15 Status: Ordered Results No data available for this section Immunizations Vaccine Date Refusal Reason pneumococcal 13-valent conjugate vaccine 05/30/15 pneumococcal 23-polyvalent vaccine 10/10/08 tetanus/diphtheria/pertussis, acel(Tdap) 10/10/08 zoster vaccine live 06/08/13 Procedures Procedure Date Related Diagnosis Body Site Cystourethroscopy, with dilation of bladder for 03/08/15 interstitial cystitis; local anesthesia Cystourethroscopy, with fulguration (including 03/08/15 cryosurgery or laser surgery) of trigone, bladder neck, prostatic fossa, urethra, or periurethral glands Rt L5-S1 selective nerve root block 10/29/11 [...] Cholecystectomy Gallbladder Removal of defibrillator Surgery 1Dr. [id number]. Ficeho6Cr. [id number]? Social History Social History Type Response Smoking Status Never smoker Assessment and Plan No data available for this section
--- OUTSIDE RECORDS SUMMARY | 2017-07-17 13:36 | External Medical Summary | Referral Summary ---
:1945 Author Organization [facility] Address [address] [place] [address] Care Team Providers Name Role Phone Moon Ruiz Primary Care Physician Encounter VC Date(s): 10/11/15 - 10/11/15 [facility] [address] [place] [phone]- [phone] Discharge Diagnosis: Lumbosacral radiculopathy Discharge Diagnosis: Postlaminectomy syndrome Discharge Disposition: -Home or Self Care Attending Physician: Abdiel Stacy MD Admitting Physician: Abdiel Stacy MD Vital Signs Most recent to oldest [Reference Range]: 1 Respiratory Rate [14-20 br/min] 16 br/min (10/11/15 8:44 AM) Blood Pressure [90-140/60-90 mmHg] 153/75 mmHg *HI* (10/11/15 8:44 AM) SpO2 100 % (10/11/15 8:44 AM) Problem List Condition Effective Dates Status [...] Active Lumbosacral radiculopathy(Confirmed) Active 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 Active anticoagul(Confirmed) Migraine headache(Confirmed) Active [...] BID, # 60 caps, 3 Refill(s), eRx: [facility] [id number], 1 CAPS ORAL BID Start Date: 07/11/15 [...] TID, # 270 caps, 1 Refill(s), Pharmacy: [facility] [id number], 1 CAPS ORAL TID Start Date: 07/27/15 Status: OrderedGinseng Ginseng, 1,000 mg, PRN Other (See Comment), 0 Refill(s) Start Date: 10/11/15 Status: Orderedlevothyroxine 175 mcg (0.175 mg) oral tablet See Instructions, 1 TABS ORAL DAILY,INSTR:LAB TO BE RE CHECKED IN 2 MONTHS./ PLEASE NOTE NEW DOSE., #60 tabs, 2 Refill(s), eRx: [facility] [address], 1 TABS ORAL DAILY,INSTR:LAB TO BE RE [...] DAY., # 90 caps, 1 Refill(s), [facility], TAKE 1 TABLET BY MOUTH EVERY DAY. Start Date: 08/15/15 Status: OrderedSingulair 10 mg oral tablet See Instructions, 1 TABS ORAL QPM, # 30 tabs, 3 Refill(s), [facility], 1 TABS ORAL QPM Start Date: 09/12/15 Status: OrderedStool softner Stool softner, 250 mg, BID, 0 Refill(s) Start Date: 10/11/15 Status: OrderedVoltaren Topical See Instructions, Pain, unk dose, 0 Refill(s) Start Date: 10/11/15 Status: Orderedzolpidem 5 mg oral tablet 5 mg 1 tabs, Oral, Bedtime (once a day), as needed for sleep, Ayde Tan [phone], # 30 tabs, 5 Refill(s), CAN FILL ON 02-24-15 Start Date: 07/20/15 Status: Ordered Results No data available for this section Immunizations Vaccine Date Refusal Reason pneumococcal 13-valent conjugate vaccine 05/30/15 pneumococcal 23-polyvalent vaccine 10/10/08 tetanus/diphtheria/pertussis, acel(Tdap) 10/10/08 zoster vaccine live 06/08/13 Procedures Procedure Date Related Diagnosis Body Site Injection procedure for myelography and/or 10/11/15 computed tomography, lumbar Rt L5-S1 selective nerve root block 10/29/11 Lumbar/Thoracic mylogram 10/23/11 Caudal 06/25/11 Bilateral L5-S1 Facet 06/11/11 Colonoscopy 2010 Pacemaker care 2010 T9-L5 Fusion [id number] 06/12/09 [...] Cholecystectomy Gallbladder Removal of defibrillator Surgery 1Dr. Mexsw1Vj. [id number]. [id number]? Social History Social History Type Response Smoking Status Never smoker Assessment and Plan No data available for this section
--- OUTSIDE RECORDS SUMMARY | 2017-07-17 13:36 | External Medical Summary | Referral Summary ---
:1945 Author Organization [facility] Address [address] [place] [address] Care Team Providers Name Role Phone Moon Ruiz Primary Care Physician Encounter VC Date(s): 05/30/16 - 05/30/16 [facility] [address] [place] [address]- [place] Discharge Diagnosis: Dual implantable cardioverter-defibrillator in situ Discharge Diagnosis: Hypertrophic cardiomyopathy Discharge Diagnosis: Ventricular tachycardia Discharge Disposition: 01-Home or Self Care Attending Physician: Amada Santa MD Admitting Physician: Amada Santa MD Referring Physician: Moon Ruiz DO Vital Signs Most recent to oldest [Reference Range]: 1 Peripheral Pulse Rate [60-100 bpm] 60 bpm (05/30/16 3:18 PM) Blood Pressure [90-140/60-90 mmHg] 120/70 mmHg (05/30/16 3:18 PM) Problem List Condition Effective Dates Status [...] Active Lumbosacral radiculopathy(Confirmed) Active Coumadin use - skilled nursing current use Active anticoagul(Confirmed) Migraine headache(Confirmed) Active [...] day), as needed for sleep, Fax to [facility] # 30 tabs, 0 Refill(s) Start Date: 04/29/16 Status: OrderedCardizem CD 180 mg/24 hours oral capsule, extended release 180 mg 1 caps, Oral, Daily, # 90 caps, 0 Refill(s), Pharmacy: [facility], 1 caps Oral Daily Start Date: 04/08/16 Status: Orderedcyclobenzaprine 10 mg oral tablet 10 mg 1 tabs, Oral, Daily, # 30 tabs, 0 Refill(s) Start Date: 07/20/15 Status: OrderedfentaNYL 25 mcg/hr transdermal film, extended release 1 patches, Topical, q72hr, as directed on package labeling, # 10 patches, 0 Refill(s) Start Date: 05/27/16 Status: OrderedFish Oil 1000 mg oral capsule 1,000 mg 1 caps, Oral, BID, 0 Refill(s) Start Date: 07/07/14 Status: Orderedgabapentin 100 mg oral capsule See Instructions, 2 CAPS ORAL TID, # 540 caps, 1 Refill(s), Pharmacy: [facility], please note change in dose. deactivate prior, 2 CAPS ORAL TID Start Date: 01/25/16 Status: OrderedGinseng Ginseng, 1,000 mg, PRN Other (See Comment), 0 Refill(s) Start Date: 10/11/15 Status: Orderedlevothyroxine 125 mcg (0.125 mg) oral tablet See Instructions, TAKE ONE TABLET BY MOUTH EVERY DAY, # 30 tabs, 5 Refill(s), eRx: [facility], TAKE ONE TABLET BY MOUTH EVERY DAY Start Date: 04/29/16 Status: Orderedmetoprolol succinate 50 mg oral tablet, extended release 25 mg 0.5 tabs, Oral, Daily, 0 Refill(s) Start Date: 12/05/15 Status: Orderedomeprazole 40 mg oral delayed release capsule See Instructions, TAKE ONE CAPSULE BY MOUTH DAILY, # 90 caps, 1 Refill(s), eRx: [facility], TAKE ONE CAPSULE BY MOUTH DAILY Start [...] Refill(s) Start Date: 10/11/15 Status: Ordered Results No data available for [...] suburethral Implantation 05/23/99 Hysterectomy, partial 1975 Appendectomy 1963 Cholecystectomy Gallbladder Removal of defibrillator Surgery 1Dr. Uzawx3Mz. Jjilwv3Hl. Wmokjv2Fjwsnpe? Social History Social History Type Response Smoking Status Never smoker Assessment and Plan Extracted from: Title: Ambulatory Patient Education Author: Amada Santa MD Date: Cardiovascular Hypertrophic Cardiomyopathy Hypertrophic cardiomyopathy (HCM) is a heart condition in which part of your heart muscle gets too thick. This thickness can make your heart become stiff. This may cause you to develop a dangerous abnor mal heart rhythm. Your heart may also get weak over time. Your heart is divided into four chambers. The thickening usually affects the pumping chamber on the lower left (left ventricle). HCM may also affect the valve (mitral valve) that lets blood flow out of your left ventricle. CAUSES Abnormal genes usually cause HCM. These genes control heart muscle growth. They are passed down through families (inherited). RISK FACTORS You are at higher risk for HCM if you have a family history of the condition. SIGNS AND SYMPTOMS Symptoms often begin at about age 30. They may include: Shortness of breath (especially after exercising or lying down). Chest pain. Dizziness. Fatigue. Irregular or fast heart rate. Fainting (especially after physical activity). DIAGNOSIS Your health care provider will do a physical exam to check for an abnormal heart sound (heart murmur). You may also have other tests, including: An electrocardiogram (ECG). This test records your heart's electrical activity. An echocardiogram. This can show an enlarged left ventricle and slow filling of the chamber. A Doppler test. This test shows irregular blood flow and pressure differences inside the heart. A chest X-ray to see if your heart is enlarged. An MRI. TREATMENT Treatment for HCM depends on how severe your symptoms are. There are several options for treatment. These may include: Medicine to: Reduce the workload of your heart. Lower your blood pressure. Thin your blood and prevent clots. Devices, including: A pacemaker to control your heartbeat. A defibrillator. Surgery. This may include a procedure to: Inject alcohol into the small blood vessels that supply your heart muscle (alcohol septal ablation). The goal is to cause the muscle to become thinner. Remove part of the wall that divides the right and left sides of the heart (septum). Replace the mitral valve. HOME CARE INSTRUCTIONS Follow all your health care provider's instructions. Avoid strenuous exercise and activities, like heavy lifting or shoveling snow. Make sure the members of your household know how to do CPR in case of an emergency. Follow a healthy diet and maintain a healthy weight. If you need help with losing weight, ask your health care provider. Limit alcohol intake to no more than 1 drink per day for non women and 2 drinks per day for men. One drink equals 12 ounces of beer, 5 ounces of wine, or 1 ounces of hard liquor. Do not use any tobacco products including cigarettes, chewing tobacco, or electronic cigarettes. If you need help quitting, ask your health care provider. Keep all follow-up visits as directed by your health care provider. This is important. SEEK MEDICAL CARE IF: You have new symptoms. Your symptoms get worse. SEEK IMMEDIATE MEDICAL CARE IF: You have chest pain or shortness of breath, especially during or after sports. You feel faint or pass out. You have trouble breathing even at rest. Your feet or ankles swell. You feel palpitations or abnormal heartbeats. MAKE SURE YOU: Understand these instructions. Will watch your condition. Will get help right away if you are not doing well or get worse. This information is not intended to replace advice given to you by your health care provider. Make sure you discuss any questions you have with your health care provider. Document Released: 08/07/2005 Document Revised: 09/22/2015 Document Reviewed: 11/04/2014 ExitCare Patient Information 2016 [employer] [facility]. No follow up information was provided. Extracted from: Title: Office Visit Note Author: Amada Santa MD Date: 05/30/16 Assessment/Plan 1.Hypertrophic cardiomyopathy Ordered: Icd Device Progr Eval Dual 70042 Office Visit Level 3 Est 16809 Return to Clinic 2.Ventricular tachycardia Ordered: Icd Device Progr Eval Dual 90430 Office Visit Level 3 Est 21456 Return to Clinic 3.Dual implantable cardioverter-defibrillator in situ Ordered: Icd Device Progr Eval Dual 78532 Office Visit Level 3 Est 34943 Return to Clinic Dictation performed with [employer] voice recognition Referrals to Other Providers Referred by: Amada Santa MD
--- OUTSIDE RECORDS SUMMARY | 2017-07-17 13:36 | External Medical Summary | Referral Summary ---
:1945 Author Organization [facility] Address [address] [place] [address] Care Team Providers Name Role Phone Moon Ruiz Primary Care Physician Encounter VC Date(s): 07/20/15 - 07/20/15 [facility] [address] [place] [address]- [place] Discharge Diagnosis: Hypertrophic cardiomyopathy Discharge Diagnosis: Ventricular tachycardia Discharge Diagnosis: Automatic implantable cardiac defibrillator in situ Discharge Disposition: 01-Home or Self Care Attending Physician: Amada Santa MD Admitting Physician: Amada Santa MD Vital Signs Most recent to oldest [Reference Range]: 1 Peripheral Pulse Rate [60-100 bpm] 70 bpm (07/20/15 2:38 PM) Blood Pressure [90-140/60-90 mmHg] 122/70 mmHg (07/20/15 2:38 PM) Problem List Condition Effective Dates Status [...] back pain(Confirmed) Active 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 anticoagul(Confirmed) Migraine headache(Confirmed) Active [...] BID, # 60 caps, 3 Refill(s), eRx: [facility] 68289, 1 CAPS ORAL BID Start Date: 07/11/15 [...] CAPS ORAL TID, # 90 caps, eRx: [facility] 68471, 1 CAPS ORAL TID Start Date: 07/18/15 Status: Orderedlevothyroxine 175 mcg (0.175 mg) oral tablet See Instructions, 1 TABS ORAL DAILY,INSTR:LAB TO BE RE CHECKED IN 2 MONTHS./ PLEASE NOTE NEW DOSE., #60 tabs, 2 Refill(s), eRx: [facility] 38756, 1 TABS ORAL DAILY,INSTR:LAB TO BE RE [...] 90 unknown unit, 3 Refill (s), eRx: [facility] 41547, TAKE 1 TABLET BY MOUTH EVERY DAY. Start Date: 07/21/14 Status: OrderedSingulair 10 mg oral tablet See Instructions, 1 TABS ORAL QPM, # 30 tabs, eRx: [facility] 87209, 1 TABS ORAL QPM Start Date: 07/14/15 Status: Orderedzolpidem 5 mg oral tablet 5 mg 1 tabs, Oral, Bedtime (once a day), as needed for sleep, Ayde Tan [phone], # 30 tabs, 5 Refill(s), CAN FILL [...] Cholecystectomy Gallbladder Removal of defibrillator Surgery 1Dr. [id number]. Xewdrx1Cz. [id number]? Social History Social History Type Response Smoking Status Never smoker Assessment and Plan Referrals to Other Providers Referred by: Amada Santa MD
--- OUTSIDE RECORDS SUMMARY | 2017-07-17 13:36 | External Medical Summary | Referral Summary ---
:1945 Author Organization [facility] [address] [place] [address] Care Team Providers Name Role Phone Moon Ruiz Primary Care Physician Encounter VC Date(s): 01/26/15 - 01/26/15 [facility] [address] [place] [address] [place] [address] Discharge Diagnosis: Osteoarthritis [...] Low back pain(Confirmed) Active Coumadin use - prison current use Active anticoagul(Confirmed) Migraine headache(Confirmed) Active [...] BID, # 60 caps, 3 Refill(s), eRx: [facility] 06536, 1 CAPS ORAL BID Start Date: 07/11/15 [...] CAPS ORAL TID, # 90 caps, eRx: [facility] 58891, 1 CAPS ORAL TID Start Date: 07/18/15 Status: Orderedlevothyroxine 175 mcg (0.175 mg) oral tablet See Instructions, 1 TABS ORAL DAILY,INSTR:LAB TO BE RE CHECKED IN 2 MONTHS./ PLEASE NOTE NEW DOSE., #60 tabs, 2 Refill(s), eRx: [facility] 29980, 1 TABS ORAL DAILY,INSTR:LAB TO BE RE [...] 90 unknown unit, 3 Refill (s), eRx: [facility] 07487, TAKE 1 TABLET BY MOUTH EVERY DAY. Start Date: 07/21/14 Status: OrderedSingulair 10 mg oral tablet See Instructions, 1 TABS ORAL QPM, # 30 tabs, eRx: [facility] 72634, 1 TABS ORAL QPM Start Date: 07/14/15 Status: Orderedzolpidem 5 mg oral tablet 5 mg 1 tabs, Oral, Bedtime (once a day), as needed for sleep, Ayde Tan [phone], # 30 tabs, 5 Refill(s), CAN FILL [...] Cholecystectomy Gallbladder Removal of defibrillator Surgery 1Dr. [id number]. Ryzhiz8No. [id number]? Social History Social History Type Response Smoking [...]
--- OUTSIDE RECORDS SUMMARY | 2017-07-17 13:40 | External Medical Summary | Referral Summary ---
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 anticoagul(Confirmed) Migraine headache(Confirmed) Active [...] day), as needed for sleep, Fax to [facility], # 30 tabs, 0 Refill(s) Start Date: 01/04/16 Status: OrderedCardizem CD 180 mg/24 hours oral capsule, extended release See Instructions, 1 CAPS ORAL BID, # 60 caps, 3 Refill(s), [facility]acy[facility] [place], 1 CAPS ORAL BID Start Date: 11/16/15 Status: Orderedcyclobenzaprine 10 mg oral tablet 10 mg 1 tabs, Oral, Daily, # 30 tabs, 0 Refill(s) Start Date: 07/20/15 Status: OrderedfentaNYL 25 mcg/hr transdermal film, extended release 1 patches, Topical, q72hr, as directed on package labeling / DO NOT FILL UNTIL , # 10 patches, 0 Refill(s) Start Date: 12/19/15 Status: OrderedFish Oil 1000 mg oral capsule 1,000 mg 1 caps, Oral, BID, 0 Refill(s) Start Date: 07/07/14 Status: Orderedgabapentin 100 mg oral capsule See Instructions, 1 CAPS ORAL TID, # 270 caps, 1 Refill(s), Pharmacy: [facility] [id number], 1 CAPS ORAL TID Start Date: 07/27/15 Status: OrderedGinseng Ginseng, 1,000 mg, PRN Other (See Comment), 0 Refill(s) Start Date: 10/11/15 Status: Orderedlevothyroxine 125 mcg (0.125 mg) oral tablet 125 mcg 1 tabs, Oral, Daily, # 30 tabs, 1 Refill(s), [facility]acy[facility], 1 tabs Oral Daily Start Date: 12/20/15 Status: Orderedlevothyroxine 150 mcg (0.15 mg) oral tablet 150 mcg 1 tabs, Oral, Daily, Recheck TSH in 3 months, # 90 tabs, 0 Refill(s), Pharmacy: [place], [place], 1 tabs Oral Daily,Instr:Recheck TSH in 3 months Start Date: 10/20/15 Status: Orderedlidocaine 5% topical film 1 patches, Topical, Daily, # 30 patches, 0 Refill(s), Pharmacy: [place], [place] Start Date: 11/07/15 Status: Orderedmetoprolol succinate [...] DAY., # 90 caps, 1 Refill(s), Pharmacy: [facility] [id number], TAKE 1 TABLET BY MOUTH EVERY DAY. Start Date: 08/15/15 Status: OrderedSingulair 10 mg oral tablet See Instructions, 1 TABS ORAL QPM, # 30 tabs, 3 Refill(s), eRx: [facility] [id number], 1 TABS ORAL QPM Start Date: 09/12/15 [...] Date Related Diagnosis Body Site Mammogram 12/25/15 Rt L5-S1 selective nerve root block 10/29/11 [...] Cholecystectomy Gallbladder Removal of defibrillator Surgery 1Dr. Tgcak4Hw. Egwnvw1Et. [id number]? Social History Social History Type Response Smoking Status Never smoker Assessment and Plan No data available for this section
--- OUTSIDE RECORDS SUMMARY | 2017-07-17 13:40 | External Medical Summary | Referral Summary ---
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 Start Date: 04/19/15 Status: Orderedmetoprolol tartrate 25 mg oral tablet 25 mg 1 tabs, Oral, Daily, 0 Refill(s) Start Date: 01/26/15 Status: OrderedoxyCODONE 15 mg oral tablet 7.5 mg 0.5 tabs, Oral, q6hr, as needed for pain, # 30 tabs, 0 Refill(s), other reason (Rx) Start Date: 10/02/15 Status: OrderedPriLOSEC 40 mg oral delayed release capsule See Instructions, TAKE 1 TABLET BY MOUTH EVERY DAY., # 90 caps, 1 Refill(s), [id number], TAKE 1 TABLET BY MOUTH EVERY DAY. Start Date: 08/15/15 Status: OrderedSingulair 10 mg oral tablet See Instructions, 1 TABS ORAL QPM, # 30 tabs, 3 Refill(s), eRx: [facility] 04519, 1 TABS ORAL QPM Start Date: 09/12/15 Status: Orderedzolpidem 5 mg oral tablet 5 mg 1 tabs, Oral, Bedtime (once a day), as needed for sleep, Ayde Tan [phone], # 30 tabs, 5 Refill(s), CAN FILL [...] Cholecystectomy Gallbladder Removal of defibrillator Surgery 1Dr. Rwjhw4Rt. Dxhnxv8Pm. [id number]? Social History Social History Type Response Smoking Status Never smoker Assessment and Plan No data available for this section
--- OUTSIDE RECORDS SUMMARY | 2017-07-17 13:40 | External Medical Summary | Referral Summary ---
:1945 Author Organization [facility] Address [address] [place] [address] Care Team Providers Name Role Phone Moon Ruiz Primary Care Physician Encounter VC Date(s): 07/20/15 - 07/20/15 [facility] [address] [place] [address]- [place] Discharge Diagnosis: Hypertrophic cardiomyopathy [...] BID, # 60 caps, 3 Refill(s), eRx: [facility] [id number], 1 CAPS ORAL BID Start Date: 07/11/15 [...] CAPS ORAL TID, # 90 caps, eRx: [facility] [id number], 1 CAPS ORAL TID Start Date: 07/18/15 Status: Orderedlevothyroxine 175 mcg (0.175 mg) oral tablet See Instructions, 1 TABS ORAL DAILY,INSTR:LAB TO BE RE CHECKED IN 2 MONTHS./ PLEASE NOTE NEW DOSE., #60 tabs, 2 Refill(s), eRx: [facility] [id number], 1 TABS ORAL DAILY,INSTR:LAB TO BE RE [...] 90 unknown unit, 3 Refill (s), eRx: [facility] 45159, TAKE 1 TABLET BY MOUTH EVERY DAY. Start Date: 07/21/14 Status: OrderedSingulair 10 mg oral tablet See Instructions, 1 TABS ORAL QPM, # 30 tabs, eRx: [facility] [id number], 1 TABS ORAL QPM Start Date: 07/14/15 Status: Orderedzolpidem 5 mg oral tablet 5 mg 1 tabs, Oral, Bedtime (once a day), as needed for sleep, Ayde Tan [phone], # 30 tabs, 5 Refill(s), CAN FILL [...] Cholecystectomy Gallbladder Removal of defibrillator Surgery 1Dr. [id number]. Xwaoiy6No. [id number]? Social History Social History Type Response Smoking Status Never smoker Assessment and Plan Extracted from: Title: Office Visit Note Author: Amada Santa MD Date: 07/20/15 Assessment/Plan 1.Ventricular tachycardia 2.Automatic implantable cardiac defibrillator in situ Ordered: Icd Device Progr Eval Dual 22630 Office Visit Level 3 Est 11214 Return to Clinic 3.Hypertrophic cardiomyopathy Ordered: Icd Device Progr Eval Dual 18718 Request for Cardiovascular Echo Referrals to Other Providers Referred by: Amada Santa MD
--- OUTSIDE RECORDS SUMMARY | 2017-07-17 13:42 | External Medical Summary | Referral Summary ---
:1945 Author Organization [facility] Address [address] [place] [address] [place] [address] Care Team Providers Name Role Phone Moon Ruiz Primary Care Physician Encounter VC Date(s): 01/25/16 - 01/25/16 [facility] [address] [place] [address] [place] [address] [place] Discharge Diagnosis: Spinal stenosis Discharge Diagnosis: Primary generalized (osteo)arthritis Discharge Disposition: 01-Home or Self Care Attending Physician: Tasha Mar MD Admitting Physician: Tasha Mar MD Referring Physician: Moon Ruiz DO Vital Signs Most recent to oldest [Reference Range]: 1 Peripheral Pulse Rate [60-100 bpm] 68 bpm (01/25/16 8:18 AM) Respiratory Rate [14-20 br/min] 16 br/min (01/25/16 8:18 AM) Blood Pressure [90-140/60-90 mmHg] 122/70 mmHg (01/25/16 8:18 AM) Problem List Condition Effective Dates Status [...] Active Lumbosacral radiculopathy(Confirmed) Active Coumadin use - long-term current use Active anticoagul(Confirmed) Migraine headache(Confirmed) Active [...] day), as needed for sleep, Fax to [facility], # 30 tabs, 0 Refill(s) Start Date: 01/04/16 Status: OrderedCardizem CD 120 mg/24 hours oral capsule, extended release 120 mg 1 caps, Oral, Daily, # 90 caps, 1 Refill(s), Pharmacy: [facility], 1 caps Oral Daily Start Date: 01/18/16 Status: Orderedcyclobenzaprine 10 mg oral tablet 10 [...] TID, # 540 caps, 1 Refill(s), Pharmacy: [facility], please note change in dose. deactivate prior, 2 CAPS ORAL TID Start Date: 01/25/16 Status: OrderedGinseng Ginseng, 1,000 mg, PRN Other (See Comment), 0 Refill(s) Start Date: 10/11/15 Status: Orderedlevothyroxine 125 mcg (0.125 mg) oral tablet 125 mcg 1 tabs, Oral, Daily, # 30 tabs, 1 Refill(s), Pharmacy: [facility], 1 tabs Oral Daily Start Date: 12/20/15 Status: Orderedlevothyroxine 150 mcg (0.15 mg) oral tablet 150 mcg 1 tabs, Oral, Daily, Recheck TSH in 3 months, # 90 tabs, 0 Refill(s), [facility] [place], 1 tabs Oral Daily,Instr:Recheck TSH in 3 months Start Date: 10/20/15 Status: Orderedlidocaine 5% topical film 1 patches, Topical, Daily, # 30 patches, 0 Refill(s), Pharmacy: [facility] [place], [place] Start Date: 11/07/15 Status: Orderedmetoprolol succinate [...] DAY., # 90 caps, 1 Refill(s), Pharmacy: [facility] [id number], TAKE 1 TABLET BY MOUTH EVERY DAY. Start Date: 08/15/15 Status: OrderedSingulair 10 mg oral tablet See Instructions, 1 TABS ORAL QPM, # 30 tabs, 3 Refill(s), eRx: [facility] [id number], 1 TABS ORAL QPM Start Date: 09/12/15 [...] Cholecystectomy Gallbladder Removal of defibrillator Surgery 1Dr. Rposb3Ap. Efaqeq3Na. Yeanmp3Rietyme? Social History Social History Type Response Smoking Status Never smoker Assessment and Plan Extracted from: Title: Office Visit Note Author: Tasha Mar MD Date: 01/25/16 Assessment/Plan 1.Primary generalized (osteo)arthritis She is on analgesics as needed. 2.Spinal stenosis She is having radicular symptoms. I am not sure this may be related to some inflammatory changespost surgery. We will give her a steroid injection Depo-Medrol today. I wi ll increase the gabapentin also. She will gradually increase to 200 mg 3 times a day. She will following upwith the surgeon next month. I suggested that she can also callto get their opinion on hersymptoms. Follow-up in 6 months.
--- OUTSIDE RECORDS SUMMARY | 2017-07-17 13:42 | External Medical Summary | Referral Summary ---
:1945 Author Care Team Providers Name Role Phone Qi Whitehead Primary Care Physician Encounter [facility] [id number] Date(s): 01/12/15 - 01/12/15 [facility], [facility], Cardiology [address] [place], [place] [address] Discharge Diagnosis: Automatic implantable cardiac defibrillator in situ Discharge Diagnosis: Septal defect Discharge Diagnosis: Hypertrophic cardiomyopathy Discharge Diagnosis: Ventricular tachycardia Discharge Disposition: Home or Self Care Attending Physician: Amada Santa MD Admitting Physician: Amada Santa MD Vital Signs Most recent to oldest [Reference Range]: 1 Peripheral Pulse Rate [60-100 bpm] 64 bpm (01/12/15 2:25 PM) Blood Pressure [90-140/60-90 mmHg] 124/72 mmHg (01/12/15 2:25 PM) Problem List Condition Effective Dates Status Health Status Informant Allergy(Confirmed) Active Asthma(Confirmed) Active Atrial fibrillation(Confirmed) Active Bladder problem(Confirmed) Active Chicken pox(Confirmed) Active Congestive heart failure(Confirmed) Active Depression(Confirmed) Active Blood clots lungs/legs(Confirmed) Active Dysuria(Confirmed) Active GERD (gastroesophageal reflux Active disease)(Confirmed) Goiter(Confirmed) Active Gout(Confirmed) Active Heart disease(Confirmed) Active Hepatitis(Confirmed) Active Hypertension(Confirmed) Active Hyperthyroidism(Confirmed) Active Hypertrophic cardiomyopathy(Confirmed) Active Hypothyroidism(Confirmed) Active Incontinence - stress(Confirmed) Active Urine Infection(Confirmed) Active Irregular heart rhythm(Confirmed) Active Low back pain(Confirmed) Active 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 Active anticoagul(Confirmed) Migraine headache(Confirmed) Active OA (osteoarthritis)(Confirmed) Active Onychomycosis/mycotic nail(Confirmed) Active Pain in limb(Confirmed) Active Postlaminectomy syndrome(Confirmed) Active Recurrent UTI(Confirmed) Active Assymetrical septal Active hypertrophy(Confirmed) high sun exposure, history of 4 Active blistering sunburns(Confirmed) Tension headache(Confirmed) Active Thyroid disease(Confirmed) Active TMJ (dislocation of temporomandibular Active joint)(Confirmed) Trigonitis with hematuria(Confirmed) Active Allergies, Adverse [...] 1 CAPS ORAL BID, # 60 caps, 5 Refill(s), eRx: [facility] [id number], 1 CAPS ORAL BID Special Instructions: 1 CAPS ORAL BID Start Date: 12/02/14 Status: Orderedcyclobenzaprine 10 mg oral tablet 0.5 tabs, Oral, Bedtime (once a day), # 30 tabs, 0 Refill(s) Start Date: 01/12/15 Status: OrderedfentaNYL 25 mcg/hr transdermal film, extended release 1 patches, Topical, q72hr, as directed on package labeling, # 10 patches, 0 Refill(s) Special Instructions: as directed on package labeling Start Date: 12/23/14 Status: OrderedFish Oil 1000 mg oral capsule 1 caps, Oral, TID, # 60 caps, 0 Refill(s) Start Date: 07/07/14 Status: Orderedgabapentin 100 mg oral capsule 1 caps, Oral, TID, # 90 caps, 0 Refill(s) Start Date: 01/12/15 Status: Orderedlevothyroxine 150 mcg (0.15 mg) oral tablet See Instructions, 1 TABS ORAL DAILY, # 90 tabs, 2 Refill(s), eRx: [facility] [id number], 1 TABSORAL DAILY Special Instructions: 1 TABS ORAL DAILY Start Date: 11/14/14 Status: Orderedmetoprolol succinate 50 mg oral tablet, extended release 0.5 tabs, Oral, Daily, # 30 tabs, 0 Refill(s) Start Date: 01/12/15 Status: OrderedNitrostat 0.4 mg sublingual tablet 1 tabs, SubLingual, q5min, as needed for chest pain, # 100 tabs, 0 Refill(s) Start Date: 04/04/14 Status: OrderedoxyCODONE 7.5 mg oral tablet See Instructions, 1 tabs Oral q4hr or q6h as needed for pain, # 60 tabs, 0 Refill(s) Special Instructions: 1 tabs Oral q4hr or q6h as needed for pain Start Date: 08/16/14 Status: OrderedPriLOSEC 40 mg oral delayed release capsule See Instructions, TAKE 1 TABLET BY MOUTH EVERY DAY., # 90 unknown unit, 3 Refill (s), eRx: [id number], TAKE 1 TABLET BY MOUTH EVERY DAY. Special Instructions: TAKE 1 TABLET BY MOUTH EVERY DAY. Start Date: 07/21/14 Status: Orderedzolpidem 5 mg oral tablet 1 tabs, Oral, Bedtime (once a day), as needed for sleep, Ayde Tan, # 30 tabs , 2 Refill(s) Special Instructions: Ayde Tan Start Date: 10/19/14 Status: Ordered Results No data available for this section Immunizations Vaccine Date Refusal Reason pneumococcal 23-polyvalent vaccine 10/10/08 tetanus/diphtheria/pertussis, acel(Tdap) 10/10/08 [...] Cholecystectomy Gallbladder Removal of defibrillator Surgery 1Dr. Zuisv4Nx. Asfqrd7Nx. [id number]? Social History Social History Type Response Smoking Status Never smoker Assessment and Plan Referrals to Other Providers Referred by: Amada Santa MD
--- OUTSIDE RECORDS SUMMARY | 2017-07-17 13:42 | External Medical Summary | Referral Summary ---
:1945 Author Organization [facility] [place] [address] Care Team Providers Name Role Phone Moon Ruiz Primary Care Physician Encounter [facility] Date(s): 02/13/15 - 02/13/15 [facility] [place] [phone] [place] Discharge Diagnosis: Dysuria Discharge Diagnosis: Onychomycosis Discharge Diagnosis: Insomnia Discharge Diagnosis: HTN (hypertension) Discharge Diagnosis: Hypothyroidism Discharge Diagnosis: Hyperlipidemia Discharge Diagnosis: Chronic back pain Discharge Diagnosis: Elevated liver enzymes Discharge Disposition: 01-Home or Self Care Attending Physician: Tanna Rubi APRN Admitting Physician: Tanna Rubi APRN Vital Signs Most recent to oldest [Reference Range]: 1 Temperature Tympanic [36.6-38.1 degC] 36.8 degC (02/13/15 8:17 AM) Peripheral Pulse Rate [60-100 bpm] 68 bpm (02/13/15 8:17 AM) Respiratory Rate [14-20 br/min] 16 br/min (02/13/15 8:17 AM) Blood Pressure [90-140/60-90 mmHg] 122/68 mmHg (02/13/15 8:17 AM) Problem List Condition Effective Dates [...] back pain(Confirmed) Active 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 Start Date: 08/15/15 Status: OrderedSingulair 10 mg oral tablet See Instructions, 1 TABS ORAL QPM, # 30 tabs, eRx: [facility] [id number], 1 TABS ORAL QPM Start Date: 07/14/15 Status: Orderedzolpidem 5 mg oral tablet 5 mg 1 tabs, Oral, Bedtime (once a day), as needed for sleep, Ayde Tan [phone], # 30 tabs, 5 Refill(s), CAN FILL ON 02-24-15 Start Date: 07/20/15 Status: Ordered Results Hematology Most recent to oldest [Reference Range]: 1 WBC [4.8-10.8 10*3/uL] 8.3 10*3/uL (02/13/15 8:34 AM) RBC [4.00-5.20 10*6/uL] 5.00 10*6/uL (02/13/15 8:34 AM) Hgb [12.0-16.0 gm/dL] 14.3 gm/dL (02/13/15 8:34 AM) Hct [37.0-47.0 %] 44.0 % (02/13/15 8:34 AM) MCV [82.0-99.0 fL] 88.0 fL (02/13/15 8:34 AM) MCH [27.0-32.0 pg] 28.6 pg (02/13/15 8:34 AM) MCHC [32.0-36.0 gm/dL] 32.5 gm/dL (02/13/15 8:34 AM) RDW [11.5-14.5 %] 13.2 % (02/13/15 8:34 AM) Platelet [150-400 10*3/uL] 207 10*3/uL (02/13/15 8:34 AM) MPV [8.8-14.8 fL] 9.9 fL (02/13/15 8:34 AM) Immature Granulocytes [0.0-1.0 %] 0.1 % (02/13/15 8:34 AM) Neutrophils [51-75 %] 58 % (02/13/15 8:34 AM) Lymphocytes [20-46 %] 29 % (02/13/15 8:34 AM) Monocytes [4-11 %] 9 % (02/13/15 8:34 AM) Eosinophils [0-4 %] 4 % (02/13/15 8:34 AM) Basophils [0-2 %] 1 % (02/13/15 8:34 AM) Neutro Absolute [1.90-7.00 10*3] 4.81 10*3 (02/13/15 8:34 AM) Lymph Absolute [0.80-3.30 10*3] 2.38 10*3 (02/13/15 8:34 AM) [place] Absolute [0.30-1.00 10*3] 0.71 10*3 (02/13/15 8:34 AM) Eos Absolute [0.00-0.50 10*3] 0.32 10*3 (02/13/15 8:34 AM) Baso Absolute [0.00-0.20 10*3] 0.05 10*3 (02/13/15 8:34 AM) Chemistry Most recent to oldest [Reference Range]: 1 Sodium Lvl [135-144 mEq/L] 143 mEq/L (02/13/15 8:34 AM) Potassium Lvl [3.5-5.2 mEq/L] 4.4 mEq/L (02/13/15 8:34 AM) Chloride [99-111 mEq/L] 108 mEq/L (02/13/15 8:34 AM) CO2 [22-31 mEq/L] 27 mEq/L (02/13/15 8:34 AM) AGAP [3-20] 8 (02/13/15 8:34 AM) BUN [10-20 mg/dL] 22 mg/dL *HI* (02/13/15 8:34 AM) Glucose Lvl [70-99 mg/dL] 98 mg/dL (02/13/15 8:34 AM) Creatinine Lvl [0.57-1.11 mg/dL] 0.80 mg/dL (02/13/15 8:34 AM) eGFR [>60 mL/min] >60 mL/min 1 (02/13/15 8:34 AM) Calcium Lvl [8.9-10.5 mg/dL] 9.5 mg/dL (02/13/15 8:34 AM) Albumin Lvl [3.4-4.8 gm/dL] 4.2 gm/dL (02/13/15 8:34 AM) Total Protein [6.2-8.1 gm/dL] 6.6 gm/dL (02/13/15 8:34 AM) Globulin [1.8-4.0 gm/dL] 2.4 gm/dL (02/13/15 8:34 AM) ALT [0-55 U/L] 69 U/L *HI* (02/13/15 8:34 AM) AST [5-34 U/L] 75 U/L *HI* (02/13/15 8:34 AM) Alk Phos [40-150 U/L] 104 U/L (02/13/15 8:34 AM) Bili Total [0.2-1.2 mg/dL] 0.6 mg/dL (02/13/15 8:34 AM) Bili Direct [0.0-0.5 mg/dL] 0.2 mg/dL (02/13/15 8:34 AM) Bili Indirect [0.0-1.0 mg/dL] 0.4 mg/dL (02/13/15 8:34 AM) Chol [0-199 mg/dL] 193 mg/dL (02/13/15 8:34 AM) Trig [0-149 mg/dL] 119 mg/dL (02/13/15 8:34 AM) HDL [40-84 mg/dL] 51 mg/dL (02/13/15 8:34 AM) LDL [0-130 mg/dL] 118 mg/dL (02/13/15 8:34 AM) VLDL Cholesterol [0-28 mg/dL] 24 mg/dL (02/13/15 8:34 AM) Cardiac Risk [0.0-5.0] 3.8 (02/13/15 8:34 AM) TSH [0.35-4.94] 2.38 (02/13/15 8:34 AM) 1Result Comment: Multiply eGFR results by 1.21 for race.Urinalysis Most recent to oldest [Reference Range]: 1 UA Color Yellow (02/13/15 8:49 AM) UA Appear Sl Cloudy (02/13/15 8:49 AM) UA pH [5.0-8.0] 5.5 (02/13/15 8:49 AM) UA Leuk Est [Negative] Trace *ABN* (02/13/15 8:49 AM) UA Nitrite [Negative] Negative (02/13/15 8:49 AM) UA Protein [Negative] Negative (02/13/15 8:49 AM) UA Glucose [Negative] Negative (02/13/15 8:49 AM) UA Ketones [Negative] Negative (02/13/15 8:49 AM) UA Urobilinogen 0.2 mg/dL (02/13/15 8:49 AM) UA Bili [Negative] Negative (02/13/15 8:49 AM) UA Blood Trace *ABN* (02/13/15 8:49 AM) UA Spec Grav [1.003-1.030] 1.025 (02/13/15 8:49 AM) Type Clean Catch (02/13/15 8:49 AM) UA WBC [0-4] 2-4 (02/13/15 8:49 AM) UA RBC [0-2] 0-2 (02/13/15 8:49 AM) Epithelial Cells 2-5 (02/13/15 8:49 AM) UA Bacteria Occasional *ABN* (02/13/15 8:49 AM) UA Mucous Present (02/13/15 8:49 AM) Microbiology Reports TEST:Urine Culture STATUS:Auth (Verified) BODY SITE: SOURCE:Urine COLLECTED DATE/TIME:02/13/15 8:49 AMUrine CultureNormal urogenital/skin luis present Immunizations Vaccine Date Refusal Reason pneumococcal 13-valent [...] Cataract extraction, bilateral 2005 Placement of defribrillator 2004 suburethral Implantation 09/05/99 suburethral Implantation 06/18/99 suburethral Implantation 05/23/99 Colonoscopy 1998 Hysterectomy, partial 1975 Appendectomy 1964 Cholecystectomy Gallbladder Removal of defibrillator Surgery 1Dr. Ycjzl5Hg. Glgnep8Ww. [id number]? Social History Social History Type Response Smoking Status Never smoker Assessment and Plan Extracted from: Title: Ambulatory Patient Education Author: Tanna Rubi APRN Date: Family Medicine Cholesterol Cholesterol is a type of fat. Your body needs a small amount of cholesterol, but too much can cause health problems. Certain problems include heart attacks, strokes, and not enough blood flow to your he art, brain, kidneys, or feet. You get cholesterol in 2 ways: Naturally. By eating certain foods. HOME CARE Eat a low-fat diet: Eat less eggs, whole dairy products (whole milk, cheese, and butter), fatty meats, and fried foods. Eat more fruits, vegetables, whole-wheat breads, lean chicken, and fish. Follow your exercise program as told by your doctor. Keep your weight at a healthy level. Talk to your doctor about what is right for you. Only take medicine as told by your doctor. Get your cholesterol checked once a year or as told by your doctor. MAKE SURE YOU: Understand these instructions. Will watch your condition. Will get help right away if you are not doing well or get worse. Document Released: 11/28/2009 Document Revised: 11/23/2012 Document Reviewed: 06/15/2014 [facility] Information [address] [facility]. No follow up information was provided. Extracted from: Title: Office Visit Note Author: Tanna Rubi APRN Date: 02/13/15 Assessment/Plan 1.Chronic back pain rf of fentanyl. hand carry script given. date when able to fill on script. 2.Insomnia rf of ambien. hand carry script given. date when able to fill on script. Dysuria ua HTN (hypertension) Ordered: CBC w/ Differential Comprehensive Metabolic Panel Hyperlipidemia Ordered: Hepatic Function Panel Lipid Panel Hypothyroidism Ordered: TSH 3rd Generation Onychomycosis discussed toenail care. she defers any further treatment at this time. discussed referral to podiatry. Orders: fentaNYL, 1 patches, Topical, q72hr, as directed on package labeling CAN FILL ON 02-27-15, # 10 patches, 0 Refill(s) zolpidem, 5 mg 1 tabs, Oral, Bedtime (once a day), as needed for sleep, NIrma Novakllons CAN FILL ON 02-24-15, # 30 tabs, 0 Refill(s), CAN FILL ON 02-24-15 Urine Culture
--- OUTSIDE RECORDS SUMMARY | 2017-07-17 13:42 | External Medical Summary | Referral Summary ---
:1945 Author Organization [facility], Rheumatology Address [address] [place] [address] [place] [address] Care Team Providers Name Role Phone Moon Ruiz Primary Care Physician Encounter [facility] Date(s): 07/25/16 - 07/25/16 [facility], Doc, Rheumatology [address] [place] [address] [place] [phone] [place] Discharge Diagnosis: Primary generalized (osteo)arthritis Discharge Diagnosis: Lumbar spinal stenosis Discharge Disposition: 01-Home or Self Care Attending Physician: Tasha Mar MD Admitting Physician: Tasha Mar MD Referring Physician: Moon Ruiz DO Vital Signs Most recent to oldest [Reference Range]: 1 Peripheral Pulse Rate [60-100 bpm] 62 bpm (07/25/16 7:58 AM) Blood Pressure [90-140/60-90 mmHg] 138/86 mmHg (07/25/16 7:58 AM) Problem List Condition Effective Dates Status [...] Active Lumbosacral radiculopathy(Confirmed) Active 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 anticoagul(Confirmed) Migraine headache(Confirmed) [...] Daily, # 90 caps, 0 Refill(s), Pharmacy: [facility], 1 caps Oral Daily Start Date: 04/08/16 Status: Orderedcyclobenzaprine 10 mg oral tablet See Instructions, 1/2 to 1 tabs Oral bid as needed, # 180 tabs, 5 Refill(s), Pharmacy: [facility], 1/2 to 1 tabs Oral bid as needed Start Date: 07/25/16 Status: OrderedfentaNYL 25 mcg/hr transdermal film, extended release 1 patches, Topical, q72hr, as directed on package labeling, # 10 patches, 0 Refill(s) Start Date: 07/25/16 Status: OrderedFish Oil 1000 mg oral capsule 1,000 mg 1 caps, Oral, BID, 0 Refill(s) Start Date: 07/07/14 Status: Orderedgabapentin 100 mg oral capsule See Instructions, 2 CAPS ORAL TID, # 540 caps, 1 Refill(s), Pharmacy: [facility], please note change in dose. deactivate prior, 2 CAPS ORAL TID Start Date: 01/25/16 Status: OrderedGinseng Ginseng, 1,000 mg, PRN Other (See Comment), 0 Refill(s) Start Date: 10/11/15 Status: Orderedlevothyroxine 125 mcg (0.125 mg) oral tablet See Instructions, TAKE ONE TABLET BY MOUTH EVERY DAY, # 30 tabs, 5 Refill(s), eRx: [facility], TAKE ONE TABLET BY MOUTH EVERY DAY Start Date: 04/29/16 Status: Orderedmetoprolol succinate 50 mg oral tablet, extended release 25 mg 0.5 tabs, Oral, Daily, 0 Refill(s) Start Date: 12/05/15 Status: Orderedomeprazole 40 mg oral delayed release capsule See Instructions, TAKE ONE CAPSULE BY MOUTH DAILY, # 90 caps, 1 Refill(s), eRx: [facility], TAKE ONE CAPSULE BY MOUTH DAILY Start [...] calibration2 09/22/06 Cystourethroscopy, removal of foreign body, 9/7/06 & sling3 suburethral Implantation 03/28/06 suburethral Implantation 02/19/06 suburethral Implantation 10/25/05 suburethral Implantation 09/04/05 suburethral Implantation4 08/07/05 Cataract extraction, bilateral 2004 Placement of defribrillator 2003 suburethral Implantation 09/05/99 suburethral Implantation 06/18/99 suburethral Implantation 05/23/99 Hysterectomy, partial 1975 Appendectomy 1964 Cholecystectomy Gallbladder Removal of defibrillator Surgery 1Dr. Qzbys4Kc. Ojvebe5Vz. Fuxios6Zbzrphs? Social History Social History Type Response Smoking Status Never smoker Assessment and Plan Extracted from: Title: Office Visit Note Author: Tasha Mar MD Date: 07/25/16 Assessment/Plan 1.Primary generalized (osteo)arthritis Continue the gabapentin. If she continues pain in the area theleft shoulder she will let us know so we can do an x-ray.It may also be coming from her neck. 2.Lumbar spinal stenosis She may have somemuscle cramps are related to the stenosis. Shehas cyclobenzaprine. We will increase the frequency to help with cramps. Follow up in 6 months
--- OUTSIDE RECORDS SUMMARY | 2017-07-17 13:42 | External Medical Summary | Referral Summary ---
:1945 Author Organization [facility] [place], Rheumatology [address] [place] [address] Care Team Providers Name Role Phone Moon Ruiz Primary Care Physician Encounter [facility] Date(s): 01/26/15 - 01/26/15 [facility] Rheumatology [address] [place] [address] [place] [phone] [place] Discharge Diagnosis: Osteoarthritis [...] Low back pain(Confirmed) Active Coumadin use - [facility] current use Active anticoagul(Confirmed) Migraine headache(Confirmed) Active [...] BID, # 60 caps, 3 Refill(s), eRx: [facility] [id number], 1 CAPS ORAL BID Start Date: 07/11/15 [...] CAPS ORAL TID, # 90 caps, eRx: [facility] [id number], 1 CAPS ORAL TID Start Date: 07/18/15 Status: Orderedlevothyroxine 175 mcg (0.175 mg) oral tablet See Instructions, 1 TABS ORAL DAILY,INSTR:LAB TO BE RE CHECKED IN 2 MONTHS./ PLEASE NOTE NEW DOSE., #60 tabs, 2 Refill(s), eRx: [facility] [id number], 1 TABS ORAL DAILY,INSTR:LAB TO BE RE [...] 90 unknown unit, 3 Refill (s), eRx: [facility] [id number], TAKE 1 TABLET BY MOUTH EVERY DAY. Start Date: 07/21/14 Status: OrderedSingulair 10 mg oral tablet See Instructions, 1 TABS ORAL QPM, # 30 tabs, eRx: [facility] [id number], 1 TABS ORAL QPM Start Date: 07/14/15 Status: Orderedzolpidem 5 mg oral tablet 5 mg 1 tabs, Oral, Bedtime (once a day), as needed for sleep, Ayde Tan [phone], # 30 tabs, 5 Refill(s), CAN FILL [...] Cholecystectomy Gallbladder Removal of defibrillator Surgery 1Dr. Puvkh2Vl. Kdwwrr7Rf. [id number]? Social History Social History Type Response Smoking [...]
--- OUTSIDE RECORDS SUMMARY | 2017-07-17 13:42 | External Medical Summary | Referral Summary ---
:1945 Author Organization [facility], Rheumatology [address] [place] [address] Care Team Providers Name Role Phone Moon Ruiz Primary Care Physician Encounter [facility] Date(s): 01/26/15 - 01/26/15 [facility], Rheumatology [address] [place] [address] [place] [phone] [place] Discharge Diagnosis: Osteoarthritis [...] Low back pain(Confirmed) Active Coumadin use - senior living current use Active anticoagul(Confirmed) Migraine headache(Confirmed) Active [...] BID, # 60 caps, 3 Refill(s), eRx: [facility] [id number], 1 CAPS ORAL BID Start Date: 07/11/15 [...] CAPS ORAL TID, # 90 caps, eRx: [facility] [id number], 1 CAPS ORAL TID Start Date: 07/18/15 Status: Orderedlevothyroxine 175 mcg (0.175 mg) oral tablet See Instructions, 1 TABS ORAL DAILY,INSTR:LAB TO BE RE CHECKED IN 2 MONTHS./ PLEASE NOTE NEW DOSE., #60 tabs, 2 Refill(s), eRx: [facility] [id number], 1 TABS ORAL DAILY,INSTR:LAB TO BE RE [...] 90 unknown unit, 3 Refill (s), eRx: [facility] [id number], TAKE 1 TABLET BY MOUTH EVERY DAY. Start Date: 07/21/14 Status: OrderedSingulair 10 mg oral tablet See Instructions, 1 TABS ORAL QPM, # 30 tabs, eRx: [facility] [id number], 1 TABS ORAL QPM Start Date: 07/14/15 Status: Orderedzolpidem 5 mg oral tablet 5 mg 1 tabs, Oral, Bedtime (once a day), as needed for sleep, Ayde Tan [phone], # 30 tabs, 5 Refill(s), CAN FILL [...] Cholecystectomy Gallbladder Removal of defibrillator Surgery 1Dr. Xmmor2Qg. Vtlwap1Yv. [id number]? Social History Social History Type Response Smoking [...]
--- OUTSIDE RECORDS SUMMARY | 2017-07-17 13:43 | External Medical Summary | Referral Summary ---
:1945 Author Organization [facility], Doc [facility] Address [address] [place] [address] [place] [address] Care Team Providers Name Role Phone Moon Ruiz Primary Care Physician Encounter [facility] Date(s): 08/07/16 - 08/07/16 [facility] [place] [phone] [place] Discharge Disposition: 01-Home or Self Care Attending Physician: Reanna Santos APRN Admitting Physician: Reanna Santos APRN Vital Signs Most recent to oldest [Reference Range]: 1 Temperature Tympanic [36.6-38.1 degC] 36.7 degC (08/07/16 8:32 AM) Peripheral Pulse Rate [60-100 bpm] 67 bpm (08/07/16 8:32 AM) Blood Pressure [90-140/60-90 mmHg] 128/62 mmHg (08/07/16 8:32 AM) SpO2 98 % (08/07/16 8:32 AM) Problem List Condition Effective Dates Status [...] Active Lumbosacral radiculopathy(Confirmed) Active Coumadin use - custodial current use Active anticoagul(Confirmed) Migraine headache(Confirmed) Active [...] Daily, # 90 caps, 0 Refill(s), Pharmacy: [email or web address], 1 caps Oral Daily Start Date: 04/08/16 Status: Orderedcyclobenzaprine 10 mg oral tablet See Instructions, 1/2 to 1 tabs Oral bid as needed, # 180 tabs, 5 Refill(s), Pharmacy: [email or web address], 1/2 to 1 tabs Oral bid as [...] TID, # 540 caps, 1 Refill(s), Pharmacy: [email or web address], please note change in dose. deactivate prior, 2 CAPS ORAL TID Start Date: 01/25/16 Status: OrderedGinseng Ginseng, 1,000 mg, PRN Other (See Comment), 0 Refill(s) Start Date: 10/11/15 Status: Orderedlevothyroxine 125 mcg (0.125 mg) oral tablet See Instructions, TAKE ONE TABLET BY MOUTH EVERY DAY, # 30 tabs, 5 Refill(s), eRx: [email or web address], TAKE ONE TABLET BY MOUTH EVERY DAY Start Date: 04/29/16 Status: Orderedmetoprolol succinate 50 mg oral tablet, extended release 25 mg 0.5 tabs, Oral, Daily, 0 Refill(s) Start Date: 12/05/15 Status: Orderedomeprazole 40 mg oral delayed release capsule See Instructions, TAKE ONE CAPSULE BY MOUTH DAILY, # 90 caps, 1 Refill(s), eRx: [email or web address], TAKE ONE CAPSULE BY MOUTH DAILY Start [...] L5-S1 Facet 06/11/11 Colonoscopy 03/07/11 Pacemaker care 2010 T9-L5 Fusion [id number] 06/12/09 Vaginal Pap smear [...] Cholecystectomy Gallbladder Removal of defibrillator Surgery 1Dr. Yfzsc6Fb. Itdaay8Sg. [id number]? Social History Social History Type Response Smoking Status Never smoker Assessment and Plan No data available for this section
--- OUTSIDE RECORDS SUMMARY | 2017-07-17 13:44 | External Medical Summary | Referral Summary ---
:1945 Author Organization [facility] [address] [place] [address] Care Team Providers Name Role Phone Moon Ruiz Primary Care Physician Encounter [facility] Date(s): 09/18/16 - 09/18/16 [facility] [address] [place] [phone] Discharge Diagnosis: Visual changes Discharge Diagnosis: Fatigue Discharge Diagnosis: Hypothyroidism Discharge Diagnosis: Chronic low back pain Discharge Disposition: 01-Home or Self Care Attending Physician: Moon Ruiz DO Admitting Physician: Moon Ruiz DO Vital Signs Most recent to oldest [Reference Range]: 1 Temperature Tympanic [36.6-38.1 degC] 36.3 degC *LOW* (09/18/16 3:51 PM) Peripheral Pulse Rate [60-100 bpm] 72 bpm (09/18/16 3:51 PM) Blood Pressure [90-140/60-90 mmHg] 132/84 mmHg (09/18/16 3:51 PM) SpO2 98 % (09/18/16 3:51 PM) Problem List Condition Effective Dates Status [...] Lumbosacral radiculopathy(Confirmed) Active 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 anticoagul(Confirmed) Migraine headache(Confirmed) Active [...] Daily, # 90 caps, 0 Refill(s), Pharmacy: [facility], 1 caps Oral Daily Start Date: 08/15/16 Status: Orderedcyclobenzaprine 10 mg oral tablet See Instructions, 1/2 to 1 tabs Oral bid as needed, # 180 tabs, 5 Refill(s), Pharmacy: [facility], 1/2 to 1 tabs Oral bid as needed Start Date: 07/25/16 Status: OrderedCymbalta 60 mg oral delayed release capsule 60 mg 1 caps, Oral, Daily, do not crush or chew, # 30 caps, 1 Refill(s), Pharmacy: [facility], 1 caps Oral Daily,Instr:do not crush or chew Start Date: 08/28/16 Status: OrderedfentaNYL 25 mcg/hr transdermal film, extended release 1 patches, Topical, q72hr, # 10 patches, 0 Refill(s), other reason (Rx) Start Date: 09/18/16 Status: OrderedFish Oil 1000 mg oral capsule 1,000 mg 1 caps, Oral, BID, 0 Refill(s) Start Date: 07/07/14 Status: OrderedGinseng Ginseng, 1,000 mg, PRN Other (See Comment), 0 Refill(s) Start Date: 10/11/15 Status: Orderedlevothyroxine 125 mcg (0.125 mg) oral tablet See Instructions, TAKE ONE TABLET BY MOUTH EVERY DAY, # 30 tabs, 5 Refill(s), eRx: [facility], TAKE ONE TABLET BY MOUTH EVERY DAY Start Date: 04/29/16 Status: Orderedmetoprolol succinate 50 mg oral tablet, extended release 25 mg 0.5 tabs, Oral, Daily, 0 Refill(s) Start Date: 12/05/15 Status: Orderedomeprazole 40 mg oral delayed release capsule See Instructions, TAKE ONE CAPSULE BY MOUTH DAILY, # 90 caps, 1 Refill(s), Pharmacy: [facility], TAKE ONE CAPSULE BY MOUTH DAILY Start Date: 08/15/16 Status: OrderedStool softner Stool softner, 250 mg, BID, 0 Refill(s) Start Date: 10/11/15 Status: OrderedVoltaren Topical See Instructions, Pain, unk dose, 0 Refill(s) Start Date: 10/11/15 Status: OrderedZyrTEC 10 mg oral tablet mg tabs, Oral, BID, 0 Refill(s) Start Date: 07/25/16 Status: Ordered Results Chemistry Most recent to oldest [Reference Range]: 1 TSH with Reflex Free T4 [0.35-4.94] 0.54 (09/18/16 4:43 PM) Immunizations Given and Recorded Vaccine Date Status [...] Cholecystectomy Gallbladder Removal of defibrillator Surgery 1Dr. [id number]. [id number]. [id number]? Social History Social History Type Response Smoking Status Never smoker Assessment and Plan Extracted from: Title: Office Visit Note Author: Moon Ruiz DO Date: 09/18/16 Assessment/Plan Chronic low back pain Continue the fentanyl at the 25 g patch for now. Patient will return to clinic in 3 months for chronicpain visit. Ordered: Office Visit Level 4 Est 47912 Fatigue We will start withTSH to ascertain whether perhaps heard dosing needs to be adjusted as she's currently having problems with this symptom. If this does not change then we will try discontinuing cyclobenzaprine. If sheneeds to discontinue the cyclobenzaprine because her thyroid is not the problem and will plan on having her return to clinic in 3 -4 weeks after getting off the cyclobenzaprine. Ordered: Office Visit Level 4 Est 56874 TSH with Reflex Free T4 Hypothyroidism TSH with further recommendations after results. Ordered: Office Visit Level 4 Est 87998 TSH with Reflex Free T4 Visual changes Fentanyl doesn't seem to be affecting visual changes, Ambien did not affect visual changes, at this time we will try discontinuation of cyclobenzaprine to see if this helps. Ordered: Office Visit Level 4 Est 78297
--- OUTSIDE RECORDS SUMMARY | 2017-07-17 13:44 | External Medical Summary | Referral Summary ---
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 Start Date: 07/21/14 Status: OrderedSingulair 10 mg oral tablet See Instructions, 1 TABS ORAL QPM, # 30 tabs, eRx: [facility] 64404, 1 TABS ORAL QPM Start Date: 07/14/15 Status: Orderedzolpidem 5 mg oral tablet 5 mg 1 tabs, Oral, Bedtime (once a day), as needed for sleep, Ayde Tan [phone], # 30 tabs, 5 Refill(s), CAN FILL [...] Cholecystectomy Gallbladder Removal of defibrillator Surgery 1Dr. Dwfto6Qi. [id number]. [id number]? Social History Social History Type Response Smoking Status Never smoker Assessment and Plan Extracted from: Title: Office Visit Note Author: Amada Santa MD Date: 01/12/15 Assessment/Plan 1.Ventricular tachycardia Ordered: Icd Device Progr Eval Dual 01346 Office Visit Level 3 Est 15466 Return to Clinic 2.Automatic implantable cardiac defibrillator in situ Ordered: Icd Device Progr Eval Dual 36273 Office Visit Level 3 Est 09556 Return to Clinic 3.Hypertrophic cardiomyopathy Ordered: Icd Device Progr Eval Dual 21505 Office Visit Level 3 Est 81022 Return to Clinic Referrals to Other Providers Referred by: Amada Santa MD
--- OUTSIDE RECORDS SUMMARY | 2017-07-17 13:44 | External Medical Summary | Referral Summary ---
:1945 Author [facility] Address [address] [place] [address] [place] [address] Care Team Providers Name Role Phone Moon Ruiz Primary Care Physician Encounter [facility] Date(s): 02/27/15 - 02/27/15 [facility] [place] [phone] [place] Discharge Diagnosis: Urination painful Discharge Disposition: 01-Home or Self Care Attending Physician: Tanna Rubi APRN Admitting Physician: Tanna Rubi APRN Vital Signs No data available for this [...] Low back pain(Confirmed) Active Coumadin use - jail current use Active anticoagul(Confirmed) Migraine headache(Confirmed) Active [...] BID, # 60 caps, 3 Refill(s), eRx: [facility] 46913, 1 CAPS ORAL BID Start Date: 07/11/15 [...] TID, # 270 caps, 1 Refill(s), Pharmacy: [facility] 42739, 1 CAPS ORAL TID Start Date: 07/27/15 Status: Orderedlevothyroxine 175 mcg (0.175 mg) oral tablet See Instructions, 1 TABS ORAL DAILY,INSTR:LAB TO BE RE CHECKED IN 2 MONTHS./ PLEASE NOTE NEW DOSE., #60 tabs, 2 Refill(s), eRx: [facility] 01932, 1 TABS ORAL DAILY,INSTR:LAB TO BE RE [...] DAY., # 90 caps, 1 Refill(s), Pharmacy: [facility] [id number], TAKE 1 TABLET BY MOUTH EVERY DAY. Start Date: 08/15/15 Status: OrderedSingulair 10 mg oral tablet See Instructions, 1 TABS ORAL QPM, # 30 tabs, eRx: [facility] 88500, 1 TABS ORAL QPM Start Date: 07/14/15 Status: Orderedzolpidem 5 mg oral tablet 5 mg 1 tabs, Oral, Bedtime (once a day), as needed for sleep, Ayde Tan [phone], # 30 tabs, 5 Refill(s), CAN FILL [...] Cholecystectomy Gallbladder Removal of defibrillator Surgery 1Dr. [id number]. [id number]. [id number]? Social History Social History Type Response Smoking Status Never smoker Assessment and Plan No data available for this section
--- OUTSIDE RECORDS SUMMARY | 2017-07-17 13:45 | External Medical Summary | Referral Summary ---
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 Discharge Disposition: 01-Home or Self Care Attending Physician: Champ Santos JR, MD Admitting Physician: Champ Santos JR, MD Referring Physician: Qi Whitehead MD Vital Signs Most recent to oldest [Reference Range]: 1 Peripheral Pulse Rate [60-100 bpm] 66 bpm (04/18/15 8:20 AM) Blood Pressure [90-140/60-90 mmHg] 116/62 mmHg (04/18/15 8:20 AM) Problem List Condition Effective Dates Status [...] Active Lumbosacral radiculopathy(Confirmed) Active 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 use - usp 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 Active anticoagul(Confirmed) Migraine headache(Confirmed) Active [...] BID, # 60 caps, 3 Refill(s), eRx: [facility] 18427, 1 CAPS ORAL BID Start Date: 07/11/15 [...] TID, # 270 caps, 1 Refill(s), Pharmacy: [facility] 18171, 1 CAPS ORAL TID Start Date: 07/27/15 Status: OrderedGinseng Ginseng, 1,000 mg, PRN Other (See Comment), 0 Refill(s) Start Date: 10/11/15 Status: Orderedlevothyroxine 150 mcg (0.15 mg) oral tablet 150 mcg 1 tabs, Oral, Daily, Recheck TSH in 3 months, # 90 tabs, 0 Refill(s), Pharmacy: [place], [place], 1 tabs Oral Daily,Instr:Recheck TSH in [...] DAY., # 90 caps, 1 Refill(s), Pharmacy: [facility] 02561, TAKE 1 TABLET BY MOUTH EVERY DAY. Start Date: 08/15/15 Status: OrderedSingulair 10 mg oral tablet See Instructions, 1 TABS ORAL QPM, # 30 tabs, 3 Refill(s), eRx: [facility] 47251, 1 TABS ORAL QPM Start Date: 09/12/15 Status: OrderedStool softner Stool softner, 250 mg, BID, 0 Refill(s) Start Date: 10/11/15 Status: OrderedVoltaren Topical See Instructions, Pain, unk dose, 0 Refill(s) Start Date: 10/11/15 Status: Orderedzolpidem 5 mg oral tablet 5 mg 1 tabs, Oral, Bedtime (once a day), as needed for sleep, Ayde Tan [phone], # 30 tabs, 5 Refill(s), CAN FILL [...] Cholecystectomy Gallbladder Removal of defibrillator Surgery 1Dr. Iklso2Qk. [id number]. [id number]? Social History Social History Type Response Smoking Status Never smoker Assessment and Plan Extracted from: Title: Ambulatory Patient Education Author: Champ Santos JR, MD Date: 04/18/15 Follow Up With: Where: When: Qi Whitehead [address]; [place], [place] [id number] Business (1) Within 3 to 5 days Comments: Follow Up With: Where: When: Champ Lance [address]; [place], [place] [id number] Business (1) In 1 year 04/18/2016 Comments: Extracted from: Title: Office Visit Note Author: Champ Santos JR, MD Date: 04/18/15 Assessment/Plan Acquired stenosis of urethral meatus status. 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 She is now voiding well. She doesn't have to strain any more to urinate. She still has chronic back pain which is monitored by her family doctor Patient will be dismissed, and to return when necessary. 15 minute face to face visit with 2/3 of the visit devoted to counseling. Ordered: Office Visit Level 3 Est 05477
--- OUTSIDE RECORDS SUMMARY | 2017-07-17 13:46 | External Medical Summary | Referral Summary ---
:1945 Author Organization [facility] Address [address] [place] [address] [place] [address] Care Team Providers Name Role Phone Moon Ruiz Primary Care Physician Encounter [facility] Date(s): 03/02/15 - 03/02/15 [facility] [address] [place] [address] [place] [phone] [place] Discharge Diagnosis: Bladder pain Discharge Disposition: 01-Home or Self Care [...] Low back pain(Confirmed) Active 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 [...] BID, # 60 caps, 3 Refill(s), eRx: [facility] 35365, 1 CAPS ORAL BID Start Date: 07/11/15 [...] TID, # 270 caps, 1 Refill(s), Pharmacy: [facility] [id number], 1 CAPS ORAL TID Start Date: 07/27/15 Status: Orderedlevothyroxine 175 mcg (0.175 mg) oral tablet See Instructions, 1 TABS ORAL DAILY,INSTR:LAB TO BE RE CHECKED IN 2 MONTHS./ PLEASE NOTE NEW DOSE., #60 tabs, 2 Refill(s), eRx: [facility] 42741, 1 TABS ORAL DAILY,INSTR:LAB TO BE RE [...] DAY., # 90 caps, 1 Refill(s), Pharmacy: [facility] [id number], TAKE 1 TABLET BY MOUTH EVERY DAY. Start Date: 08/15/15 Status: OrderedSingulair 10 mg oral tablet See Instructions, 1 TABS ORAL QPM, # 30 tabs, eRx: [facility] 34934, 1 TABS ORAL QPM Start Date: 07/14/15 Status: Orderedzolpidem 5 mg oral tablet 5 mg 1 tabs, Oral, Bedtime (once a day), as needed for sleep, Ayde Tan [phone], # 30 tabs, 5 Refill(s), CAN FILL [...] Cholecystectomy Gallbladder Removal of defibrillator Surgery 1Dr. Ranqj3Yx. [id number]. [id number]? Social History Social History Type Response Smoking Status Never smoker Assessment and Plan Extracted from: Title: Admission H & P Author: Champ Santos JR, MD Date: 03/02/15 Assessment/Plan Bladder pain Extreme difficulty emptying her urinary bladder associated with bladder pain. I ordered a KUB x-ray today and reviewed the KUB x-ray did not reveal any presence of calcification in the left and right kidney although it was reported Small stones on the CAT scan and the left and right kidney ' will schedule for cystoscopy calibration they'll, hydrodistention of bladder and possible is SLT laser vaporization if she has chronic trigonitis or interstitial cystitis. Procedures, risks, complications, and follow-up explained to patient with verbalize full understanding. Patient should stop taking fish oil starting now and other blood thinners This was a 30 minute face to face visit with 1/2 of the visit devoted to counseling the patient. Addendum by Champ Santos JR, MD on March 06, 2015 13:56:08 History of calculi. CDT
--- OUTSIDE RECORDS SUMMARY | 2017-07-17 13:46 | External Medical Summary | Referral Summary ---
:1945 Author Organization [facility] Address [address] [place] [address] [place] [address] Care Team Providers Name Role Phone Moon Ruiz Primary Care Physician Encounter [facility] Date(s): 12/19/15 - 12/19/15 [facility] [place] [phone] [place] Discharge Disposition: 01-Home or Self Care Attending Physician: Moon Ruiz DO Admitting Physician: Moon Ruiz DO Vital Signs Most recent to oldest [Reference Range]: 1 Temperature Tympanic [36.6-38.1 degC] 36.9 degC (12/19/15 1:51 PM) Peripheral Pulse Rate [60-100 bpm] 76 bpm (12/19/15 1:51 PM) Respiratory Rate [14-20 br/min] 17 br/min (12/19/15 1:51 PM) Blood Pressure [90-140/60-90 mmHg] 120/80 mmHg (12/19/15 1:51 PM) SpO2 98 % (12/19/15 1:51 PM) Problem List Condition Effective Dates Status [...] Active Lumbosacral radiculopathy(Confirmed) Active 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 anticoagul(Confirmed) Migraine headache(Confirmed) Active [...] BID, # 60 caps, 3 Refill(s), Pharmacy: [facility] [place], [place], 1 CAPS ORAL BID Start Date: [...] TID, # 270 caps, 1 Refill(s), [facility], 1 CAPS ORAL TID Start Date: 07/27/15 Status: OrderedGinseng Ginseng, 1,000 mg, PRN Other (See Comment), 0 Refill(s) Start Date: 10/11/15 Status: Orderedlevothyroxine 150 mcg (0.15 mg) oral tablet 150 mcg 1 tabs, Oral, Daily, Recheck TSH in 3 months, # 90 tabs, 0 Refill(s), Pharmacy: [place], [place], 1 tabs Oral Daily,Instr:Recheck TSH in 3 months Start Date: 10/20/15 Status: Orderedlidocaine 5% topical film 1 patches, Topical, Daily, # 30 patches, 0 Refill(s), Pharmacy: [place], [place] Start Date: 11/07/15 Status: Orderedmetoprolol succinate [...] DAY., # 90 caps, 1 Refill(s), Pharmacy: [facility]16, TAKE 1 TABLET BY MOUTH EVERY DAY. Start Date: 08/15/15 Status: OrderedSingulair 10 mg oral tablet See Instructions, 1 TABS ORAL QPM, # 30 tabs, 3 Refill(s), eRx: [facility] 62253, 1 TABS ORAL QPM Start Date: 09/12/15 Status: OrderedStool softner Stool softner, 250 mg, BID, 0 Refill(s) Start Date: 10/11/15 Status: OrderedVoltaren Topical See Instructions, Pain, unk dose, 0 Refill(s) Start Date: 10/11/15 Status: Ordered Results Hematology Most recent to oldest [Reference Range]: 1 WBC [4.8-10.8 10*3/uL] 7.2 10*3/uL (4/5/16 1:00 PM) RBC [4.00-5.20] 5.10 (12/19/15 1:00 PM) Hgb [12.0-16.0 gm/dL] 14.3 gm/dL (12/19/15 1:00 PM) Hct [37.0-47.0 %] 43.8 % (12/19/15 1:00 PM) MCV [82.0-99.0 fL] 85.9 fL (12/19/15 1:00 PM) MCH [27.0-32.0 pg] 28.0 pg (12/19/15 1:00 PM) MCHC [32.0-36.0 gm/dL] 32.6 gm/dL (12/19/15 1:00 PM) RDW [11.5-14.5 %] 13.3 % (12/19/15 1:00 PM) Platelet [150-400 10*3/uL] 241 10*3/uL (12/19/15 1:00 PM) MPV [8.8-14.8 fL] 9.9 fL (12/19/15 1:00 PM) Immature Granulocytes [0.0-1.0 %] 0.3 % (12/19/15 1:00 PM) Neutrophils [51-75 %] 58 % (12/19/15 1:00 PM) Lymphocytes [20-46 %] 31 % (12/19/15 1:00 PM) Monocytes [4-11 %] 7 % (12/19/15 1:00 PM) Eosinophils [0-4 %] 3 % (12/19/15 1:00 PM) Basophils [0-2 %] 0 % (12/19/15 1:00 PM) Neutro Absolute [1.90-7.00 10*3] 4.19 10*3 (12/19/15 1:00 PM) Lymph Absolute [0.80-3.30 10*3] 2.24 10*3 (12/19/15 1:00 PM) Stanly Absolute [0.30-1.00 10*3] 0.48 10*3 (12/19/15 1:00 PM) Eos Absolute [0.00-0.50 10*3] 0.22 10*3 (12/19/15 1:00 PM) Baso Absolute [0.00-0.20 10*3] 0.03 10*3 (12/19/15 1:00 PM) Chemistry Most recent to oldest [Reference Range]: 1 Sodium Lvl [135-144 mEq/L] 140 mEq/L (12/19/15 1:00 PM) Potassium Lvl [3.5-5.2 mEq/L] 4.3 mEq/L (12/19/15 1:00 PM) Chloride [99-111 mEq/L] 105 mEq/L (12/19/15 1:00 PM) CO2 [22-31 mEq/L] 32 mEq/L *HI* (12/19/15 1:00 PM) AGAP [3-20] 3 (12/19/15 1:00 PM) BUN [10-20 mg/dL] 20 mg/dL (12/19/15 1:00 PM) Glucose Lvl [70-99 mg/dL] 106 mg/dL *HI* (12/19/15 1:00 PM) Creatinine Lvl [0.57-1.11 mg/dL] 0.95 mg/dL (12/19/15 1:00 PM) eGFR [>60 mL/min] 58 mL/min 1 *ABN* (12/19/15 1:00 PM) Calcium Lvl [8.9-10.5 mg/dL] 9.6 mg/dL (12/19/15 1:00 PM) Albumin Lvl [3.4-4.8 gm/dL] 4.3 gm/dL (12/19/15 1:00 PM) Total Protein [6.2-8.1 gm/dL] 6.6 gm/dL (12/19/15 1:00 PM) Globulin [1.8-4.0 gm/dL] 2.3 gm/dL (12/19/15 1:00 PM) ALT [0-55 U/L] 39 U/L (12/19/15 1:00 PM) AST [5-34 U/L] 34 U/L (12/19/15 1:00 PM) Alk Phos [40-150 U/L] 99 U/L (12/19/15 1:00 PM) Bili Total [0.2-1.2 mg/dL] 0.3 mg/dL (12/19/15 1:00 PM) T4 Free [0.7-1.5 ng/dL] 1.2 ng/dL (12/19/15 1:00 PM) TSH with Reflex Free T4 [0.35-4.94] 0.26 *LOW* (12/19/15 1:00 PM) 1Result Comment: Multiply eGFR results by 1.21 for race.Urinalysis Most recent to oldest [Reference Range]: 1 UA Color Yellow (12/19/15 3:09 PM) UA Appear Clear (12/19/15 3:09 PM) UA pH [5.0-8.0] 6.0 (12/19/15 3:09 PM) UA Leuk Est [Negative] Negative (12/19/15 3:09 PM) UA Nitrite [Negative] Negative (12/19/15 3:09 PM) UA Protein [Negative] Negative (12/19/15 3:09 PM) UA Glucose [Negative] Negative (12/19/15 3:09 PM) UA Ketones [Negative] Negative (12/19/15 3:09 PM) UA Urobilinogen [<1.0 mg/dL] 0.2 mg/dL (12/19/15 3:09 PM) UA Bili [Negative] Negative (12/19/15 3:09 PM) UA Blood [Negative] Negative (12/19/15 3:09 PM) UA Spec Grav [1.003-1.030] 1.007 (12/19/15 3:09 PM) Type Clean Catch (12/19/15 3:09 PM) Immunizations Vaccine Date Refusal Reason pneumococcal 13-valent [...] Cholecystectomy Gallbladder Removal of defibrillator Surgery 1Dr. Ohnri4Uf. Abrnft8Qg. [id number]? Social History Social History Type Response Smoking Status Never smoker Assessment and Plan No data available for this section
--- OUTSIDE RECORDS SUMMARY | 2017-07-17 13:46 | External Medical Summary | Referral Summary ---
:1945 Author Organization [facility] Address [address] [place] [address] [place] [phone] Care Team Providers Name Role Phone Moon Ruiz Primary Care Physician Encounter VC Date(s): 04/08/16 - 04/08/16 [facility] [address] [place] [phone] [place] Discharge Diagnosis: Hypertension Discharge Diagnosis: Chronic low back pain Discharge Disposition: 01-Home or Self Care Attending Physician: Moon Ruiz DO Admitting Physician: Moon Ruiz DO Vital Signs Most recent to oldest [Reference Range]: 1 Peripheral Pulse Rate [60-100 bpm] 79 bpm (04/08/16 2:58 PM) Respiratory Rate [14-20 br/min] 18 br/min (04/08/16 2:58 PM) Blood Pressure [90-140/60-90 mmHg] 144/84 mmHg *HI* (04/08/16 2:58 PM) SpO2 98 % (04/08/16 2:58 PM) Problem List Condition Effective Dates Status [...] day), as needed for sleep, Fax to [facility], # 30 tabs, 0 Refill(s) Start Date: 03/06/16 Status: OrderedCardizem CD 180 mg/24 hours oral capsule, extended release 180 mg 1 caps, Oral, Daily, # 90 caps, 0 Refill(s), [facility]acy: [facility], 1 caps Oral Daily Start Date: 04/08/16 Status: Orderedcyclobenzaprine 10 mg oral tablet 10 mg 1 tabs, Oral, Daily, # 30 tabs, 0 Refill(s) Start Date: 07/20/15 Status: OrderedfentaNYL 25 mcg/hr transdermal film, extended release 1 patches, Topical, q72hr, as directed on package labeling, # 10 patches, 0 Refill(s) Start Date: 04/08/16 Status: OrderedFish Oil 1000 mg oral capsule 1,000 mg 1 caps, Oral, BID, 0 Refill(s) Start Date: 07/07/14 Status: Orderedgabapentin 100 mg oral capsule See Instructions, 2 CAPS ORAL TID, # 540 caps, 1 Refill(s), Pharmacy: [facility], please note change in dose. deactivate prior, 2 CAPS ORAL TID Start Date: 01/25/16 Status: OrderedGinseng Ginseng, 1,000 mg, PRN Other (See Comment), 0 Refill(s) Start Date: 10/11/15 Status: Orderedlevothyroxine 125 mcg (0.125 mg) oral tablet 125 mcg 1 tabs, Oral, Daily, # 30 tabs, 1 Refill(s), Pharmacy: [facility], 1 tabs Oral Daily Start Date: 12/20/15 Status: Orderedlevothyroxine 150 mcg (0.15 mg) oral tablet 150 mcg 1 tabs, Oral, Daily, # 90 tabs, 1 Refill(s), Pharmacy: [facility], 1 tabs Oral Daily Start Date: 02/28/16 Status: Orderedlidocaine 5% topical film 1 patches, Topical, Daily, # 30 patches, 0 Refill(s), [facility]acy: [facility] [place] Start Date: 11/07/15 Status: Orderedmetoprolol succinate 50 mg oral tablet, extended release 25 mg 0.5 tabs, Oral, Daily, 0 Refill(s) Start Date: 12/05/15 Status: OrderedMucinex D 600 mg, Oral, BID, 0 Refill(s) Start Date: 10/11/15 Status: Orderedomeprazole 40 mg oral delayed release capsule See Instructions, TAKE ONE CAPSULE BY MOUTH DAILY, # 90 caps, 1 Refill(s), eRx: [facility], TAKE ONE CAPSULE BY MOUTH DAILY Start Date: 02/14/16 Status: OrderedoxyCODONE 15 mg oral tablet 7.5 mg 0.5 tabs, Oral, q6hr, as needed for pain, # 30 tabs, 0 Refill(s), other reason (Rx) Start Date: 10/02/15 Status: OrderedSingulair 10 mg oral tablet See Instructions, 1 TABS ORAL QPM, # 30 tabs, 3 Refill(s), eRx: [facility], 1 TABS ORAL QPM Start Date: 09/12/15 [...] suburethral Implantation 05/23/99 Hysterectomy, partial 1974 Appendectomy 1964 Cholecystectomy Gallbladder Removal of defibrillator Surgery 1Dr. [id number]. [id number]. [id number]? Social History Social History Type Response Smoking Status Never smoker Assessment and Plan Extracted from: Title: Office Visit Note Author: Moon Ruiz DO Date: 04/08/16 Assessment/Plan Chronic low back pain We will continue patient on the current regimen at this time. She will return to clinic in 3 months unless she would like to change her regimen sooner. Ordered: Office Visit Level 4 Est 77666 Hypertension We will take her diltiazem back up to 180and she will monitor her blood pressures. If she has any trouble with hypotension she will call us and we will adjust a different medication. Ordered: Office Visit Level 4 Est 12688 Orders: diltiazem, 180 mg 1 caps, Oral, Daily, # 90 caps, 0 Refill(s), Pharmacy: [facility], 1 caps Oral Daily fentaNYL, 1 patches, Topical, q72hr, as directed on package labeling, # 10 patches, 0 Refill(s)
--- OUTSIDE RECORDS SUMMARY | 2017-07-17 13:46 | External Medical Summary | Referral Summary ---
:1945 Author Organization [facility] [place], Rheumatology [address] [place] [address] Care Team Providers Name Role Phone Moon Ruiz Primary Care Physician Encounter VC Date(s): 01/26/15 - 01/26/15 [facility] [place], Rheumatology [address] [place] [address] [place] [phone] [place] Discharge Diagnosis: Osteoarthritis [...] Low back pain(Confirmed) Active Coumadin use - [facility] current use Active anticoagul(Confirmed) Migraine headache(Confirmed) Active [...] BID, # 60 caps, 3 Refill(s), eRx: [facility] [id number], 1 CAPS ORAL BID Start Date: 07/11/15 [...] CAPS ORAL TID, # 90 caps, eRx: [facility] 12924, 1 CAPS ORAL TID Start Date: 07/18/15 Status: Orderedlevothyroxine 175 mcg (0.175 mg) oral tablet See Instructions, 1 TABS ORAL DAILY,INSTR:LAB TO BE RE CHECKED IN 2 MONTHS./ PLEASE NOTE NEW DOSE., #60 tabs, 2 Refill(s), eRx: [facility] 24697, 1 TABS ORAL DAILY,INSTR:LAB TO BE RE [...] 90 unknown unit, 3 Refill (s), eRx: [facility] 71259, TAKE 1 TABLET BY MOUTH EVERY DAY. Start Date: 07/21/14 Status: OrderedSingulair 10 mg oral tablet See Instructions, 1 TABS ORAL QPM, # 30 tabs, eRx: [facility] 14153, 1 TABS ORAL QPM Start Date: 07/14/15 Status: Orderedzolpidem 5 mg oral tablet 5 mg 1 tabs, Oral, Bedtime (once a day), as needed for sleep, Ayde Tan [phone], # 30 tabs, 5 Refill(s), CAN FILL [...] Cholecystectomy Gallbladder Removal of defibrillator Surgery 1Dr. [id number]. [id number]. [id number]? Social History Social History Type Response Smoking [...]
--- OUTSIDE RECORDS SUMMARY | 2017-07-17 13:46 | External Medical Summary | Referral Summary ---
:1945 Author Organization [facility] [place], Rheumatology [address] [place] [address] Care Team Providers Name Role Phone Moon Ruiz Primary Care Physician Encounter VC Date(s): 01/26/15 - 01/26/15 [facility] [place], Rheumatology [address] [place] [address] [place] [phone] [place] Discharge Diagnosis: Osteoarthritis [...] Low back pain(Confirmed) Active Coumadin use - alf current use Active anticoagul(Confirmed) Migraine headache(Confirmed) Active [...] BID, # 60 caps, 3 Refill(s), eRx: [facility] 89904, 1 CAPS ORAL BID Start Date: 07/11/15 [...] CAPS ORAL TID, # 90 caps, eRx: [facility] 67715, 1 CAPS ORAL TID Start Date: 07/18/15 Status: Orderedlevothyroxine 175 mcg (0.175 mg) oral tablet See Instructions, 1 TABS ORAL DAILY,INSTR:LAB TO BE RE CHECKED IN 2 MONTHS./ PLEASE NOTE NEW DOSE., #60 tabs, 2 Refill(s), eRx: [facility] 63001, 1 TABS ORAL DAILY,INSTR:LAB TO BE RE [...] 90 unknown unit, 3 Refill (s), eRx: [facility] 05230, TAKE 1 TABLET BY MOUTH EVERY DAY. Start Date: 07/21/14 Status: OrderedSingulair 10 mg oral tablet See Instructions, 1 TABS ORAL QPM, # 30 tabs, eRx: [facility] 33599, 1 TABS ORAL QPM Start Date: 07/14/15 Status: Orderedzolpidem 5 mg oral tablet 5 mg 1 tabs, Oral, Bedtime (once a day), as needed for sleep, Ayde Tan [phone], # 30 tabs, 5 Refill(s), CAN FILL [...] Cholecystectomy Gallbladder Removal of defibrillator Surgery 1Dr. [id number]. [id number]. [id number]? Social History Social History Type Response Smoking [...]
--- OUTSIDE RECORDS SUMMARY | 2017-07-17 13:48 | External Medical Summary | Referral Summary ---
:1945 Author Organization [facility], [facility] Address [address] [place] [address] [place] [phone] Care Team Providers Name Role Phone Moon Ruiz Primary Care Physician Encounter VC Date(s): 01/18/16 - 01/18/16 [facility] [place] [address] [place] [phone] [place] Discharge Diagnosis: Lumbosacral radiculopathy Discharge Diagnosis: Hypotension Discharge Disposition: 01-Home or Self Care Attending Physician: Moon Ruiz DO Admitting Physician: Moon Ruiz DO Vital Signs Most recent to oldest [Reference Range]: 1 Peripheral Pulse Rate [60-100 bpm] 68 bpm (01/18/16 1:44 PM) Blood Pressure [90-140/60-90 mmHg] 120/85 mmHg (01/18/16 1:44 PM) Problem List Condition Effective Dates Status [...] day), as needed for sleep, Fax to [facility], # 30 tabs, 0 Refill(s) Start Date: 01/04/16 Status: OrderedCardizem CD 120 mg/24 hours oral capsule, extended release 120 mg 1 caps, Oral, Daily, # 90 caps, 1 Refill(s), Pharm[facility], 1 caps Oral Daily Start Date: 01/18/16 [...] TID, # 270 caps, 1 Refill(s), Pharmacy: [facility]77[facility], 1 CAPS ORAL TID Start Date: 11/12/15 Status: OrderedGinseng Ginseng, 1,000 mg, PRN Other (See Comment), 0 Refill(s) Start Date: 10/11/15 Status: Orderedlevothyroxine 125 mcg (0.125 mg) oral tablet 125 mcg 1 tabs, Oral, Daily, # 30 tabs, 1 Refill(s), Pharmacy: [facility], 1 tabs Oral Daily Start Date: 12/20/15 Status: Orderedlevothyroxine 150 mcg (0.15 mg) oral tablet 150 mcg 1 tabs, Oral, Daily, Recheck TSH in 3 months, # 90 tabs, 0 Refill(s), Pharmacy: [place], [place], 1 tabs Oral Daily,Instr:Recheck TSH in 3 months Start Date: 10/20/15 Status: Orderedlidocaine 5% topical film 1 patches, Topical, Daily, # 30 patches, 0 Refill(s), Pharmacy: [place], [place] Start Date: 11/07/15 Status: Orderedmetoprolol succinate [...] DAY., # 90 caps, 1 Refill(s), Pharmacy: [facility] 69500, TAKE 1 TABLET BY MOUTH EVERY DAY. Start Date: 08/15/15 Status: OrderedSingulair 10 mg oral tablet See Instructions, 1 TABS ORAL QPM, # 30 tabs, 3 Refill(s), eRx: [facility] 79298, 1 TABS ORAL QPM Start Date: 09/12/15 Status: OrderedStool softner Stool softner, 250 mg, BID, 0 Refill(s) Start Date: 10/11/15 Status: OrderedVoltaren Topical See Instructions, Pain, unk dose, 0 Refill(s) Start Date: 10/11/15 Status: Ordered Results Chemistry Most recent to oldest [Reference Range]: 1 TSH [0.35-4.94] 2.03 (01/18/16 2:50 PM) Toxicology Most recent to oldest [Reference Range]: 1 Prescribed Meds - 1 (01/18/16 2:55 PM) Location, Toxicology [facility] (01/18/16 2:55 PM) [employer] [facility] (01/18/16 2:55 PM) Reason Physical (01/18/16 2:55 PM) SSN - (01/18/16 2:55 PM) 1Result Comment: Cartia Colace fentanyl patch gabapentin luothyronine metaporal oxycodone omeprazole cyclobenzapine Immunizations Vaccine Date Refusal Reason pneumococcal 13-valent [...] Cholecystectomy Gallbladder Removal of defibrillator Surgery 1Dr. [id number]. [id number]. [id number]? Social History Social History Type Response Smoking Status Never smoker Assessment and Plan Extracted from: Title: Office Visit Note Author: Moon Ruiz DO Date: 01/18/16 Assessment/Plan Hypotension We will decrease her cartia to 120. re-eval in 2 mo. She will hold if bp is less than 110/55. Ordered: Office Visit Level 4 Est 74512 Lumbosacral radiculopathy continue fentanyl but reduce oxycodone to 1/2 pill at night. recheck in 2 mo or 3 week after she starts PT is she is placed on this by surgeon after next visit. Ordered: Office Visit Level 4 Est 89824 Medication monitoring encounter UDS and Pain match today. Ordered: Office Visit Level 4 Est 48093 Pain Management Drug Match Urine Drug Screen 10 Orders: diltiazem, 120 mg 1 caps, Oral, Daily, # 90 caps, 1 Refill(s), Pharmacy: [facility], 1 caps Oral Daily
--- OUTSIDE RECORDS SUMMARY | 2017-07-17 13:48 | External Medical Summary | Referral Summary ---
:1945 Author Organization [facility], [facility] Address [address] [place] [address] [place] [phone] Care Team Providers Name Role Phone Moon Ruiz Primary Care Physician Encounter VC Date(s): 05/30/15 - 05/30/15 [facility] [address] [place] [phone] [place] Discharge Diagnosis: Allergic conjunctivitis and rhinitis Discharge Diagnosis: Chronic low back pain Discharge Diagnosis: Hypothyroidism Discharge Disposition: 01-Home or Self Care Attending Physician: Moon Ruiz DO Admitting Physician: Moon Ruiz DO Vital Signs Most recent to oldest [Reference Range]: 1 Temperature Tympanic [36.6-38.1 degC] 36.8 degC (05/30/15 7:53 AM) Peripheral Pulse Rate [60-100 bpm] 70 bpm (05/30/15 7:53 AM) Respiratory Rate [14-20 br/min] 16 br/min (05/30/15 7:53 AM) Blood Pressure [90-140/60-90 mmHg] 118/78 mmHg (05/30/15 7:53 AM) SpO2 98 % (05/30/15 7:53 AM) Problem List Condition Effective Dates Status [...] BID, # 60 caps, 3 Refill(s), Pharmacy: [facility] [place], 1 CAPS ORAL BID Start Date: [...] TID, # 270 caps, 1 Refill(s), [facility], 1 CAPS ORAL TID Start Date: 07/27/15 Status: OrderedGinseng Ginseng, 1,000 mg, PRN Other (See Comment), 0 Refill(s) Start Date: 10/11/15 Status: Orderedlevothyroxine 150 mcg (0.15 mg) oral tablet 150 mcg 1 tabs, Oral, Daily, Recheck TSH in 3 months, # 90 tabs, 0 Refill(s), Pharmacy: [place], [place], 1 tabs Oral Daily,Instr:Recheck TSH in 3 months Start Date: 10/20/15 Status: Orderedlidocaine 5% topical film 1 patches, Topical, Daily, # 30 patches, 0 Refill(s), Pharmacy: [place], [place] Start Date: 11/07/15 Status: Orderedmetoprolol succinate [...] DAY., # 90 caps, 1 Refill(s), Pharmacy: [facility] 22664, TAKE 1 TABLET BY MOUTH EVERY DAY. Start Date: 08/15/15 Status: OrderedSingulair 10 mg oral tablet See Instructions, 1 TABS ORAL QPM, # 30 tabs, 3 Refill(s), eRx: [facility] 33819, 1 TABS ORAL QPM Start Date: 09/12/15 [...] Cholecystectomy Gallbladder Removal of defibrillator Surgery 1Dr. Ubrhc4Dv. [id number]. [id number]? Social History Social History Type Response Smoking Status Never smoker Assessment and Plan Extracted from: Title: Ambulatory Patient Education Author: Moon Ruiz DO Date: 05/30/15 Family Medicine Hypothyroidism The thyroid is a large gland located in the lower front of your neck. The thyroid gland helps control metabolism. Metabolism is how your body handles food. It controls metabolism with the hormone thyrox ine. When this gland is underactive (hypothyroid), it produces too little hormone. CAUSES These include: Absence or destruction of thyroid tissue. Goiter due to iodine deficiency. Goiter due to medications. Congenital defects (since ). Problems with the pituitary. This causes a lack of TSH (thyroid stimulating hormone). This hormone tells the thyroid to roller turner more hormone. SYMPTOMS Lethargy (feeling as though you have no energy) Cold intolerance Weight gain (in spite of normal food intake) Dry skin Coarse hair Menstrual irregularity (if severe, may lead to infertility) Slowing of thought processes Cardiac problems are also caused by insufficient amounts of thyroid hormone. Hypothyroidism in the is cretinism, and is an extreme form. It is important that this form be treated adequately and immediately or it will lead rapidly to retarded physical and mental development. DIAGNOSIS To prove hypothyroidism, your caregiver may do blood tests and ultrasound tests. Sometimes the signs are hidden. It may be necessary for your caregiver to watch this illness with blood tests either before or after diagnosis and treatment. TREATMENT Low levels of thyroid hormone are increased by using synthetic thyroid hormone. This is a safe, effective treatment. It usually takes about four weeks to gain the full effects of the medication. After y ou have the full effect of the medication, it will generally take another four weeks for problems to leave. Your caregiver may start you on low doses. If you have had heart problems the dose may be grad ually increased. It is generally not an emergency to get rapidly to normal. HOME CARE INSTRUCTIONS Take your medications as your caregiver suggests. Let your caregiver know of any medications you are taking or start taking. Your caregiver will help you with dosage schedules. As your condition improves, your dosage needs may increase. It will be necessary to have continuing blood tests as suggested by your caregiver. Report all suspected medication side effects to your caregiver. SEEK MEDICAL CARE IF: Seek medical care if you develop: Sweating. Tremulousness (tremors). Anxiety. Rapid weight loss. Heat intolerance. Emotional swings. Diarrhea. Weakness. SEEK IMMEDIATE MEDICAL CARE IF: You develop chest pain, an irregular heart beat (palpitations), or a rapid heart beat. MAKE SURE YOU: Understand these instructions. Will watch your condition. Will get help right away if you are not doing well or get worse. Document Released: 09/01/2006 Document Revised: 11/23/2012 Document Reviewed: 04/21/2009 [facility] Patient Information 2015 [facility]. This information is not intended to replace advice given to you by your health care provider. Make sure you discuss any questions you have with your health care provider. No follow up information was provided. Extracted from: Title: Office Visit Note Author: Moon Ruiz DO Date: 05/30/15 Assessment/Plan Allergic conjunctivitis and rhinitis Will try singulair daily during the seasons when she has trouble. Ordered: Office Visit Level 4 Est 99636 Chronic low back pain continue current regimen. fentanyl rx given today. Ordered: Office Visit Level 4 Est 22708 Hypothyroidism Will recheck when she is due in a few weeks. Ordered: Office Visit Level 4 Est 90367 Immunization due PCV-13 given today. Orders: fentaNYL, 1 patches, Topical, q72hr, as directed on package labeling , # 10 patches, 0 Refill(s) montelukast, 10 mg 1 tabs, Oral, qPM, # 30 tabs, 0 Refill(s), Pharmacy: [facility] [address], 1 tabs Oral qPM BD Bone Density DEXA Axial Skeleton
--- OUTSIDE RECORDS SUMMARY | 2017-07-17 13:48 | External Medical Summary | Referral Summary ---
:1945 Author Organization [facility], Doc, Urology Address [address] [place] [address] [place] [address] Care Team Providers Name Role Phone Moon Ruiz Primary Care Physician Encounter VC Date(s): 03/23/15 - 03/23/15 [facility] [place], Urology [address] [place] [address] [place] [phone] [place] Discharge Diagnosis: Bladder pain Discharge Disposition: 01-Home or Self Care Attending Physician: Champ Santos JR, MD Admitting Physician: Champ Santos JR, MD Referring Physician: Qi Whitehead MD Vital Signs Most recent to oldest [Reference Range]: 1 Peripheral Pulse Rate [60-100 bpm] 67 bpm (03/23/15 8:24 AM) Blood Pressure [90-140/60-90 mmHg] 110/60 mmHg (03/23/15 8:24 AM) SpO2 96 % (03/23/15 8:24 AM) Problem List Condition Effective Dates Status [...] back pain(Confirmed) 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 Start Date: 08/15/15 Status: OrderedSingulair 10 mg oral tablet See Instructions, 1 TABS ORAL QPM, # 30 tabs, 3 Refill(s), eRx: [facility] 13296, 1 TABS ORAL QPM Start Date: 09/12/15 Status: Orderedzolpidem 5 mg oral tablet 5 mg 1 tabs, Oral, Bedtime (once a day), as needed for sleep, Ayde Tan [phone], # 30 tabs, 5 Refill(s), CAN FILL [...] Cholecystectomy Gallbladder Removal of defibrillator Surgery 1Dr. [id number]. [id number]. [id number]? Social History Social History Type Response Smoking Status Never smoker Assessment and Plan Extracted from: Title: Ambulatory Patient Education Author: Champ Santos JR, MD Date: 03/23/15 Follow Up With: Where: When: Qi Whitehead [address] [place] [address] Drive; [place] [address] Business (1) Within 3 to 5 days Comments: Follow Up With: Where: When: Champ Lance [address]; [place] [address] Business (1) In 1 month 04/23/2015 Comments: Extracted from: Title: Office Visit Note Author: Champ Santos JR, MD Date: 03/23/15 Assessment/Plan Bladder pain stress urinary incontinence. Status post cystoscopy urethral dilatation and SLT laser vaporization chronic diffuse trigonitis. Patient is doing well. Patient instructed to reduce intake of caffeine highly acidic and highly spiced food, and do Kegel's pelvic floor exercises as often as she could. In about 2 weeks from now as she should be able to resume her normal activity as before surgery, and I would like to see her again in 4 weeks. 15 minute face to face visit with 2/3 of the visit devoted to counseling. Ordered: Office Visit Level 3 Est 84850
--- OUTSIDE RECORDS SUMMARY | 2017-07-17 13:49 | External Medical Summary | Continuity of Care Document ---
:1945 Author Organization Via [facility] Allergies Active Description Code Type Severity Reaction Onset Reported/ Identified Relationship Clinical to Patient Status Yes BACTRIM 46327 2 Skin 12/28/2015 Rashes/Hi ves Yes BETADINE 27069 2 Skin 12/28/2015 Rashes/Hi ves Yes LEVAQUIN 65234 2 Nausea 12/28/2015 Yes LISINOPRIL 91617 3 SOB 12/28/2015 Yes MORPHINE 87672 3 SOB 12/28/2015 Yes VANCOMYCIN 27721 3 BONE 12/28/2015 MARROW DETERIATI ON Yes VESICARE 2 Skin 12/28/2015 Rashes/Hi ves Medications Medication Packaging Start Date Stop Date Route Dosage Sig EA 12/28/2015 PO * DONT 6 PRN RECONCILE--CHANGE PENDING SYR 01/05/2016 IVP SODIUM CHLORIDE 0.9% 7 10ML FLUSH SYRINGE BID&090 0,2100 PAT 01/05/2016 TD *fentaNYL 25 MCG/HR 6 PATCH Q72H&09 00 PAT 01/05/2016 TD LIDOCAINE 5% PATCH 7 Q12H&09 00,2100 PKT 01/05/2016 PO POLYETHYLENE GLYCOL 7 17GM PKT QD&0900 CAP 01/05/2016 PO DOCUSATE SODIUM 7 100MG CAPSULE BID&090 0,2100 VL 01/05/2016 IV ceFAZolin 1GM VIAL 6 PRE-OP BAG 01/05/2016 IV LACTATED RINGERS 6 1000 ML IV SOLN PRE-OP VL 01/05/2016 IV MIDAZOLAM 2MG/2ML 6 INJ PRE-OP AMP 01/05/2016 IV fentaNYL 100 MCG/2ML 6 INJ PRE-OP VL 01/05/2016 IV ceFAZolin 1GM VIAL 6 PRE-OP AMP 01/05/2016 IV fentaNYL 250 MCG/5ML 6 INJ ONCE SYR 01/05/2016 IVP LIDOCAINE 2% 6 SYRINGE [100MG/5ML] ONCE VL 01/05/2016 IVP DEXAMETHASONE 6 10MG/1ML VIAL ONCE VL 01/05/2016 IVP ONDANSETRON 4MG/2ML 6 INJ ONCE VL 01/05/2016 IVP ROCURONIUM 50MG/5ML 6 INJ ONCE VL 01/05/2016 IVP PROPOFOL 200MG/20ML 6 INJ ONCE VL 01/05/2016 ID BUPIVACAINE W/ EPI 6 0.25% INJ [10 ML] ONCE VL 01/05/2016 IVP SODIUM CHLORIDE PF 6 0.9% 10ML INJ ONCE BAG 01/05/2016 IV LACTATED RINGERS 6 1000 ML IV SOLN ONCE EA 01/05/2016 IRR SODIUM CHLORIDE 0.9% 6 1000ML IRRIG SOLN ONCE VL 01/05/2016 IVP ceFAZolin 1GM VIAL 6 ONCE EA 01/05/2016 PO * Ready to Reconcile 6 ASDIR TAB 01/05/2016 PO oxyCODONE IR 15MG 7 TABLET Q4-6HPRN SYR 01/05/2016 IV hydroMORPHONE 6 PRN 12MG/30ML SALOON KEEPER BAG 01/05/2016 IV SODIUM CHLORIDE 0.9% 6 W/ KCL 20MEQ 1000ML 100ML/HR IV SOLN TAB 01/05/2016 PO LORazepam 0.5MG 7 TABLET Q4HPRN EA 01/05/2016 PO MAGNESIUM HYDROXIDE 7 PRN 2400MG/30ML SUSP YANE 01/05/2016 BC CEPACOL 7 PRN (BENZOCAINE/MENTHOL) LOZENGE SUP 01/05/2016 FL* BISACODYL 10MG 7 PRN SUPPOS. CAP 01/05/2016 PO TEMAZEPAM 15MG 7 CAPSULE HSPRNI& 2200 TAB 01/05/2016 PO FAMOTIDINE 20 MG 7 TABLET BIDPRNN TAB 01/05/2016 PO BISACODYL 5MG TABLET 7 PRN TAB 01/05/2016 PO ACETAMINOPHEN 325MG 7 TABLET Q4HPRN EA 01/05/2016 PO PHENOL 1.4% THROAT 7 PRN SPRAY [118ML] VL 01/05/2016 IVP METOCLOPRAMIDE 7 10MG/2ML INJ [id number] SYR 01/05/2016 IVP SODIUM CHLORIDE 0.9% 7 PRN 10ML FLUSH SYRINGE SYR 01/05/2016 IVP SODIUM CHLORIDE 0.9% 7 PRN 5ML FLUSH SYRINGE VL 01/05/2016 IVP diphenhydrAMINE 7 50MG/1ML INJ Q6HPRN 01/05/2016 OP *RETAINE OPHTH 7 PRN SOLUTION TAB 01/05/2016 PO *LEVOTHYROXINE 7 125MCG TABLET QDAC&07 00 CAP 01/05/2016 PO *OMEPRAZOLE 40MG 7 CAPSULE HS&2200 PAT 01/05/2016 TD *fentaNYL 25 MCG/HR 7 PATCH Q72H&09 00 TAB 01/05/2016 PO *METOPROLOL 7 SUCCINATE 50MG HS&2200 TABLET TAB 01/05/2016 PO *LEVOTHYROXINE 7 150MCG TABLET QDAC&07 00 CAP 01/05/2016 PO *GABAPENTIN 100MG 7 CAPSULE TID&090 0,1500,2200 CAP 01/05/2016 PO *DILTIAZEM CD 180MG 7 CAPSULE BID&090 0,2100 DOS 01/05/2016 IVP EPHEDRINE 20MG/2ML 6 SYRINGE [COMPOUND] ONCE ML 01/05/2016 IV hydroMORPHONE 6 2MG/1ML INJ ONCE ML 01/05/2016 IV hydroMORPHONE 6 2MG/1ML INJ POST-OP TAB 01/05/2016 PO *CYCLOBENZAPRINE 10 7 MG TABLET HS&2200 VL 01/05/2016 IVP ceFAZolin 1GM VIAL 6 Q8H&000 0,0800,1600 TAB 01/05/2016 PO CYCLOBENZAPRINE 10 7 MG TABLET Q8HPRN TAB 01/05/2016 PO METOCLOPRAMIDE 10MG 6 TABLET Q6H&000 0,0600,1200 ,1800 ML 01/06/2016 IV hydroMORPHONE 7 2MG/1ML INJ Q2HPRN CAP 01/06/2016 PO GABAPENTIN 300MG 6 CAPSULE ONCE CAP 01/06/2016 PO GABAPENTIN 300MG 6 CAPSULE ONCE TAB 01/07/2016 PO METOCLOPRAMIDE 10MG 7 TABLET [id number] TAB 01/27/2016 PO *LEVOTHYROXINE 6 125MCG TABLET QDAC&07 00 TAB 01/27/2016 PO *LEVOTHYROXINE 6 150MCG TABLET QDAC&07 00 PAT 01/27/2016 TD *fentaNYL 25 MCG/HR 7 PATCH Q72H&09 00 CAP 01/27/2016 PO *DILTIAZEM CD 180MG 6 CAPSULE BID&090 0,2100 CAP 01/27/2016 PO *GABAPENTIN 100MG 6 CAPSULE TID&090 0,1500,2200 CAP 01/27/2016 PO *DOCUSATE SODIUM 6 100MG CAPSULE TID&090 0,1500,2200 TAB 01/27/2016 PO *METOPROLOL 6 SUCCINATE 25MG HS&2200 TABLET CAP 01/27/2016 PO *OMEPRAZOLE 40MG 6 CAPSULE HS&2200 TAB 01/27/2016 PO *ZOLPIDEM 5MG TABLET 7 HS&2200 TAB 01/27/2016 PO *oxyCODONE IR 15MG 7 TABLET Q4-6HPRN TAB 01/27/2016 PO *CYCLOBENZAPRINE 10 7 MG TABLET HS&2200 02/04/2016 PO *DOCUSATE 250MG 7 CAPSULE TID&090 0,1500,2200 02/04/2016 OU *CROMOLYN 4% OPHTH 6 SOLUTION QID&080 0,1200,1600 ,2000 02/04/2016 OP *RETAINE OPHTH 6 PRN SOLUTION TAB 02/04/2016 PO *METOPROLOL 6 SUCCINATE 50MG HS&2200 TABLET 02/04/2016 OP *RETAINE OPHTH 6 PRN OINTMENT Problems Date Dx Attending Type Code Diagnosis Diagnosed By Coded 01/07/2016 SVITLANA NATHAN E03.9 Hypothyroidism, unspecified 01/07/2016 SVITLANA NATHAN E74.39 Other disorders of intestinal carbohydra 01/07/2016 SVITLANA NATHAN G43.909 Migraine, unspecified, not intractable, 01/07/2016 SVITLANA NATHAN I11.9 Hypertensive heart disease without heart 01/07/2016 SVITLANA NATHAN I25.10 Atherosclerotic heart disease of [place] 01/07/2016 SVITLANA NATHAN I43 Cardiomyopathy in diseases classified el 01/07/2016 SVITLANA NATHAN I48.91 Unspecified atrial fibrillation 01/07/2016 SVITLANA NATHAN J45.909 Unspecified asthma, uncomplicated 01/07/2016 SVITLANA NATHAN K21.9 Gastro-esophageal reflux disease without 01/07/2016 SVITLANA NATHAN M25.78 Osteophyte, vertebrae 01/07/2016 SVITLANA NATHAN M41.85 Other forms of scoliosis, thoracolumbar 01/07/2016 SVITLANA NATHAN M48.07 Spinal stenosis, lumbosacral region 01/07/2016 SVITLANA NATHAN M53.2X7 Spinal instabilities, lumbosacral region 01/07/2016 SVITLANA NATHAN M96.1 Postlaminectomy syndrome, not elsewhere 01/07/2016 SVITLANA NATHAN N20.0 Calculus of kidney 01/07/2016 SVITLANA NATHAN N39.3 Stress incontinence (female) (male) 01/07/2016 SVITLANA NATHAN R74.0 Nonspecific elevation of levels of trans 01/07/2016 SVITLANA NATHAN Z79.899 Other buttermaker (current) drug therapy 01/07/2016 SVITLANA NATHAN Z86.711 Personal history of pulmonary embolism 01/07/2016 SVITLANA NATHAN Z87.440 Personal history of urinary (tract) infe 01/07/2016 SVITLANA NATHAN Z95.810 Presence of automatic (implantable) card 01/07/2016 SVITLANA NATHAN Z98.1 Arthrodesis status Procedures Code Description Performed By Performed On SVITLANA NATHAN 01/05/2016 [id number] Removal of Internal Fixation Device from SVITLANA NATHAN 01/05/2016 [id number] Fusion of Lumbar Vertebral Joint with No SVITLANA NATHAN 01/05/2016 [id number] Fusion of Lumbosacral Joint with [employer] Results Encounters ACCT No. Visit Discharge Status Pt. Type Provider Facility Loc./Unit Complaint Date/Time [id number] 12/02/2013 12/02/2013 CLS Outpatient 09:04:00 23:59:59 [id number] 11/24/2013 11/24/2013 CLS Outpatient 14:28:00 23:59:59 [id number] 11/17/2013 11/17/2013 CLS Outpatient 06:54:00 23:59:59 [id number] 11/09/2013 11/09/2013 CLS Outpatient 08:22:00 23:59:59 [id number] 11/02/2013 11/02/2013 CLS Outpatient 12:55:00 23:59:59 [id number] 11/02/2013 11/02/2013 CLS Outpatient 09:01:00 23:59:59 [id number] 10/07/2013 10/07/2013 CLS Outpatient 14:15:00 23:59:59 [id number] 09/22/2013 09/22/2013 CLS Outpatient 13:59:00 23:59:59 [id number] 01/05/2016 01/07/2016 DIS 01 VENITA Castro INPT NO KNOWN 09:34:00 14:10:00 , SVITLANA Spine INJURY & 12/31/15 Specialty RM,[facility] s, osteophyte .
[2017-07-17] MEDS ORDERED: ENOXAPARIN 30 MG/0.3 ML INJECTION SQ ONE (13:54)
--- NOTE | 2017-07-17 13:58 | CT Scan Report ---
Indication: increasing SOA, Hx post op PE, elevated Ddimer PROCEDURE: CT angio pulm emboli: Encounter: Initial Comparison: None Technique: Axial CT pulmonary angiographic phase images were performed through the chest after the administration of intravenous contrast. Coronal and Sagittal MIP reconstructed images were created and reviewed. Automated Exposure Control and Iterative Reconstruction dose reducing techniques were utilized. Contrast: Omnipaque 350 53 mL Findings: Pulmonary arteries: Exam is diagnostic to the subsegmental pulmonary arterial level. There are subsegmental emboli present in the right lower lobe. There are also segmental and subsegmental emboli in the right middle lobe. Subsegmental embolus also noted in the left lower lobe. Other findings: No pneumothorax. Small airspace opacity in the peripheral left lower lobe. Lungs are otherwise clear. No pleural effusion. The central airways are patent. No axillary or mediastinal adenopathy. Heart size is normal. No pericardial effusion. The upper abdomen shows no acute findings. Thoracolumbar spinal fusion. Impression: 1. Bilateral pulmonary emboli. 2. Small area of left lower lobe airspace disease could represent atelectasis, pneumonia or possibly small region of pulmonary hemorrhage. Results were discussed with the ordering clinician at 1353 on July 17, 2017. .
--- NOTE | 2017-07-17 14:47 | History & Physical Report ---
<Aisha Bennett V - Last Filed: 07/17/17 14:43> History of Present Illness Date: 07/17/17 Chief complaint: shortness of breath HPI: Mrs. Brice is a pleasant 72-year-old female who has been having ongoing shortness of breath for approximately 3-6 months. She reports that her primary care provider ordered an outpatient. D-dimer yesterday which resulted to be significantly elevated greater than 2000. Patient was notified by physician's office today to come to the emergency room for acute evaluation and treatment. Upper studies and a CT scan of the chest were performed. CBC was found to be normal. Chemistry panel did reveal slightly elevated LFTs otherwise unremarkable. Troponin was -0.023, d-dimer 532. CT scan of the chest was obtained that did reveal bilateral pulmonary emboli. Room air saturations have been adequate at 97%. Pulse in the 60s, respiration rate 20, blood pressure 160s over 70s. Given dyspnea, accompanied with bilateral pulmonary emboli. The hospitalist services were contacted and accepted patient for outpatient admission for further evaluation and treatment. Patient seen and examined well in the emergency room. She is alert, oriented and pleasant. She does reveal having shortness of breath for multiple months that she has been unable to exercise and ambulate due to the dyspnea. Did recently take a bus to her to [place] at the beginning of August. She did have a fall. At that time in which she struck her head and had a laceration above the left eye. This is healed well. She has had no further difficulties. She denies having palpitations, chest pain, leg pain or dizziness. Reports having dyspnea with exertion. We did discuss advanced directives and she does wish to be a full code Review of Systems All systems PM: 10-point ROS was reviewed, no additional remarkable complaints except - Respiratory Respiratory: Present: as per HPI, dyspnea, dyspnea on exertion [facility] Patient Stated Medical History History of atrial fibrillation Cardiac pacemaker GABRIELLA-Asymmetrical septal hypertrophy Asthma History of PE-2008- Postoperatively. Depression GERD Hypertension Low back pain Osteoarthritis Surgical History: Cholecystectomy. Appendectomy-1963. Hysterectomy-1974. Cataract extraction-2003, 2004. Cystoscopy-2006, 2005. Pacemaker [address] Manriquez. Colonoscopy-2010. Lumbar fusion-2008 Family History: Mother-cancer Father-asthma - Social History Smoking status: Never smoker Substance use type: does not use Alcohol intake frequency: does not drink Current occupational status: employed ([employer]) Current residence: Apartment/Private Home Social history: PCP Dr Ruiz Radiologist Dr. Santa Medications Home Medications Medication Instructions Recorded Confirmed Type dilTIAZem HCl [Cartia Xt] 180 mg PO DAILY #0 08/05/11 07/17/17 History Levothyroxine Sodium 150 mcg PO SUTUTHSA #0 tab 03/07/15 07/17/17 History [place]-3 Fatty Acids/Fish Oil [Fish 3,000 mg PO DAILY #0 cap 03/07/15 07/17/17 History Oil 1,000 mg Capsule] Omeprazole 40 mg PO DAILY #0 cap 03/07/15 07/17/17 History Gabapentin 100 mg PO BID #0 cap 03/08/15 07/17/17 History Cetirizine HCl [Zyrtec] 10 mg PO DAILY 07/17/17 07/17/17 History Cholecalciferol (Vitamin D3) 50,000 unit PO WEEKLY 07/17/17 07/17/17 History [Vitamin D3] Diclofenac [Voltaren] 1 applic TP PRN PRN 07/17/17 07/17/17 History Docusate Calcium [Stool Softener] 240 mg PO BID 07/17/17 07/17/17 History FentaNYL PATCH [Duragesic Patch] 25 mcg TD WEEKLY 07/17/17 07/17/17 History Levothyroxine Sodium 125 mcg PO MOWEFR 07/17/17 07/17/17 History Melatonin 10 mg PO HS PRN 07/17/17 07/17/17 History Metoprolol Succinate 75 mg PO DAILY 07/17/17 07/17/17 History Allergies Allergy/AdvReac Type Severity Reaction Status Date / Time iodine Allergy Intermediate SWELLING Verified 07/17/17 12:06 levofloxacin Allergy Intermediate CHEST PAIN Verified 07/17/17 12:06 codeine Allergy Mild NAUSEA, Verified 07/17/17 12:06 RELUX, CHEST PAIN lisinopril Allergy Mild PROBLEMS Verified 07/17/17 12:06 BREATHING sulfamethoxazole Allergy Mild NAUSEA, Verified 07/17/17 12:06 ANAPHYLAXSIS trimethoprim Allergy Mild NAUSEA, Verified 07/17/17 12:06 ANAPHYLAXSIS morphine Allergy Unknown CHEST PAIN Verified 07/17/17 12:06 vancomycin Allergy Unknown Verified 07/17/17 12:06 solifenacin [From Vesicare] Allergy Verified 07/17/17 12:06 Exam Vital Signs: Temperature 97.5 F 07/17/17 12:06 Pulse Rate 60 07/17/17 14:08 Respiratory Rate 20 07/17/17 14:08 Blood Pressure 166/72 H 07/17/17 14:08 Pulse Oximetry 97 07/17/17 14:08 Telemetry Rhythm: Sinus Rhythm Height/Weight/BMI: Height 1.63 m Weight 70.9 kg - Constitutional Present: no acute distress, well nourished, well developed - Routine HEENT Exam Eye: Present: EOMI ENT: Present: mucous membranes moist, dentition normal - Routine Respiratory Exam Present: CTA bilaterally. Absent: wheezes - Routine Cardiovascular Exam Present: RRR, S1, S2. Absent: murmur - Routine Abdominal Exam Present: soft, normoactive bowel sounds, non distended. Absent: tenderness - Routine Extremities Exam Present: full ROM, normal capillary refill - Routine Back/Spine/Pelvis Exam Back/Spine: Present: full ROM - Routine Skin Exam Present: intact, dry, warm - Routine Neurological Exam Present: alert, oriented X3, CN II-XII intact - Routine Psychiatric Exam Present: normal affect, cooperative Results - Labs CBC & Chem 7: 07/17/17 12:28 07/17/17 12:28 Assessment and Plan (1) Bilateral pulmonary embolism Current visit: Yes Status: Acute Assessment and Plan: Impression Bilateral pulmonary emboli Dyspnea with exertion Hypertension GABRIELLA Cardiac pacemaker Asthma Depression Plan Will admit patient to outpatient observation under the care of Dr. Celis for bilateral pulmonary emboli She did receive Lovenox 70mg subcutaneous 1 in the emergency room. Did discuss anticoagulation options, discussing risk and benefit of multiple options with patient. She prefers to use a newer agent. Will start Xarelto 15 milligrams twice a day this evening. Discussed risk of bleeding. Will obtain a 12-lead EKG and monitor patient. Cardiac telemetry for any cardiac dysrhythmias or cardiac strain. Obtain venous Doppler of bilateral lower extremities Patient may have regular diet She does this to be a full code and this order is written. Will discuss further orders and plan of care with attending, Dr. Celis At time of discharge medical care will return to primary care provider, Dr. Ruiz. Patient is planning to follow-up with Dr. Santa for echo and stress test for further cardiac evaluation. Will send document copy to his office. DVT Prophylaxis: Lovenox, Xarelto Resuscitation Status: Full Code Hospital Course Summary Disclaimer: The visit summary below is not to be considered part of the above Progress Note. Hospital Course: 07/17/17- admission Impression Bilateral pulmonary emboli Dyspnea with exertion Hypertension GABRIELLA Cardiac pacemaker Asthma Depression Plan Will admit patient to outpatient observation under the care of Dr. Celis for bilateral pulmonary emboli She did receive Lovenox 70mg subcutaneous 1 in the emergency room. Did discuss anticoagulation options, discussing risk and benefit of multiple options with patient. She prefers to use a newer agent. Will start Xarelto 15 milligrams twice a day this evening. Discussed risk of bleeding. Will obtain a 12-lead EKG and monitor patient. Cardiac telemetry for any cardiac dysrhythmias or cardiac strain. Obtain venous Doppler of bilateral lower extremities Patient may have regular diet She does this to be a full code and this order is written. Will discuss further orders and plan of care with attending, Dr. Celis At time of discharge medical care will return to primary care provider, Dr. Ruiz. Patient is planning to follow-up with Dr. Santa for echo and stress test for further cardiac evaluation. Will send document copy to his office. <Lorenzo Celis - Last Filed: 07/17/17 21:57> History of Present Illness Date: 07/17/17 HPI: 72-year-old woman who has had 2 days of significant shortness of breath with activity. 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 Despite this she is interested in cutting this hospitalization very short and returning to work as soon as possible. (I have attempted to discourage this while she remains short of breath) [facility] Patient Stated Medical History Cataracts Yes: hx, removed Dysphagia Yes Hearing Loss Yes: bilateral hearing aids at home Other HEENT Yes: wears glasses Hypertension Yes Asthma Yes: as a child Pulmonary Embolism Yes Hepatitis Yes: non A, non B Hx Kidney Stones Yes Hx Urinary Tract Infection Yes Osteoarthritis Yes Anesthesia Reactions Yes: delayed reaction to anesthesia Blood Transfusions Yes Depression Yes: Minor Post Menopausal Yes Clinic Medical History Bilateral pulmonary embolism (Acute Medical) Exam Vital Signs: Temperature 97.1 F 07/17/17 15:16 Pulse Rate 59 L 07/17/17 16:00 Respiratory Rate 16 07/17/17 15:16 Blood Pressure 162/68 H 07/17/17 15:16 Pulse Oximetry 97 07/17/17 15:16 Height/Weight/BMI: Height 5 ft 4 in Weight 70.6 kg Body Mass Index 26.6 Results - Labs CBC & Chem 7: 07/17/17 12:28 07/17/17 12:28 Assessment and Plan (1) Bilateral pulmonary embolism Current visit: Yes Status: Acute Assessment and Plan: I agree with the history physical assessment and plan by Aisha Bennett. My appreciation for her efforts on this. The patient remains relatively stable and does not require supplemental oxygen. However some changes to the lateral leads on her EKG are concerning area for this reason alone I would not release her without a night of observation. She does appear to understand the condition and severity of disease process, she is just a very work focused person and likely to require strict limitation for the next few days once she is left the hospital Documented on Dragon speech to text. Efforts to correct speech recognition errors performed, but variation may exist Hospital Course Summary Disclaimer: The visit summary below is not to be considered part of the above Progress Note.
--- NOTE | 2017-07-17 15:58 | Ultrasound Report ---
Indication: bilateral PE PROCEDURE: US venous doppler LE BI: Encounter: Initial Comparison: None Technique: Color Doppler duplex and grayscale sonographic imaging of both lower extremities was performed. Findings: There is no evidence for acute deep venous thrombosis in either thigh. Specifically, serial graded compression was performed from the inguinal ligament to the popliteal bifurcation, bilaterally, demonstrating appropriate compressibility of the deep venous system. In addition, color and pulsed Doppler demonstrate appropriate spontaneous flow, variation with respiration, and augmentation with calf compression. At the ankle, normal flow is identified in the posterior tibial veins; these vessels are also normal in caliber. Impression: No evidence of acute DVT in either lower limb. .
[2017-07-17 15:59] VITALS: BMI 26.6
[2017-07-17] MEDS: RIVAROXABAN 15 MG TABLET PO SCH (20:27)
[2017-07-18 07:22] VITALS: TEMP 95.6
[2017-07-18] MEDS: RIVAROXABAN 15 MG TABLET PO SCH (08:33)
[2017-07-18 11:50] VITALS: BP 179/78; PULSE 62; RESP 14; O2SAT 98
--- NOTE | 2017-07-18 12:32 | Work/School Release ---
Work/School Release - Date Date: 07/18/17 - Work Release Remain off work/school for:: Medical condition Excused for:: medical condition May resume normal activity on:: 07/21/17
--- NOTE | 2017-07-18 12:43 | Discharge Summary ---
<Aisha Bennett V - Last Filed: 07/18/17 12:40> Discharge Information Date of admission: 07/17/17 15:05 Anticipated date of discharge: 07/18/17 Attending Physician: Lorenzo Celis MD Primary care physician: Moon Ruiz DO Consults: None - Discharge Diagnosis (1) Bilateral pulmonary embolism Status: Acute Bilateral pulmonary emboli Dyspnea with exertion Hypertension GABRIELLA Cardiac pacemaker Asthma Depression - Procedures Procedures: None - Laboratory Labs: Laboratory Results - last 24 hr 07/17/17 07/17/17 07/18/17 12:28 12:28 10:42 Neutrophils % (Manual) 64.0 Lymphocytes % (Manual) 29.0 Monocytes % (Manual) 1.0 Eosinophils % (Manual) 5.0 H Basophils % (Manual) 1.0 Neutrophils # (Manual) 4.7 Lymphocytes # (Manual) 2.1 Monocytes # (Manual) 0.1 Eosinophils # (Manual) 0.4 Basophils # (Manual) 0.1 RBC Morph Comment Normal Turbidity 23 H Sodium 143 Potassium 4.3 Chloride 106 Carbon Dioxide 27 Anion Gap 10 BUN 26.0 H Creatinine 1.0 GFR Calculation 55 BUN/Creatinine Ratio 26 Glucose 120 H Calculated Osmolality 281 H Calcium 9.4 Total Bilirubin 0.70 Icterus Index < 2 AST 41 H ALT 72 H Alkaline Phosphatase 108 Troponin I 0.023 0.025 Total Protein 7.4 Albumin 4.3 Globulin 3.1 Albumin/Globulin Ratio 1.4 Specimen Hemolysis < 15 < 15 Laboratory Tests 07/17/17 12:28 D-Dimer 532 H - Microbiology None - Radiology Radiology: 07/17/17-CT Angio study- Impression: 1. Bilateral pulmonary emboli. 2. Small area of left lower lobe airspace disease could represent atelectasis, pneumonia or possibly small region of pulmonary hemorrhage. - Pathology None History of Present Illness HPI: 72-year-old woman who has had 2 days of significant shortness of breath with activity. 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 Despite this she is interested in cutting this hospitalization very short and returning to work as soon as possible. (I have attempted to discourage this while she remains short of breath) Hospital Course This is a general summary of the patient's hospital course. For more details refer to the complete medical record. Hospital course: 07/17/17- admission Impression Bilateral pulmonary emboli Dyspnea with exertion Hypertension GABRIELLA Cardiac pacemaker Asthma Depression Plan Will admit patient to outpatient observation under the care of Dr. Celis for bilateral pulmonary emboli She did receive Lovenox 70mg subcutaneous 1 in the emergency room. Did discuss anticoagulation options, discussing risk and benefit of multiple options with patient. She prefers to use a newer agent. Will start Xarelto 15 milligrams twice a day this evening. Discussed risk of bleeding. Will obtain a 12-lead EKG and monitor patient. Cardiac telemetry for any cardiac dysrhythmias or cardiac strain. Obtain venous Doppler of bilateral lower extremities Patient may have regular diet She does this to be a full code and this order is written. Will discuss further orders and plan of care with attending, Dr. Celis At time of discharge medical care will return to primary care provider, Dr. Ruiz. Patient is planning to follow-up with Dr. Santa for echo and stress test for further cardiac evaluation. Will send document copy to his office. 07/18/17- Discharge Mrs Brice is seen and examined today. She reports that she is feeling good today and denies having dyspnea with exertion. She did have a repeat EKG done today which was reviewed by Dr. Celis and Dr. Yates. Serial troponins remain negative and patient is without any acute chest pain, shortness of breath or dizziness. She has been anticoagulated starting on Lovenox subcutaneous yesterday followed by initiation of Xarelto 15 milligrams twice a day. She is instructed to continue this for a total of 21 days at which time she will change dosages to serosa 20 milligrams daily. We did discuss that this will likely be a long-term plan for her anticoagulation. Given that this is her 2nd incidence of a pulmonary emboli. Up with primary care provider, Dr. Moon Ruiz next week, and also to contact Dr. Santa regarding new diagnosis of PE and planned outpatient studies. She is instructed to stay off of work until 07/21, and a work note is given. Patient is to resume all other current home medications. Time spent with patient: discharge greater than 30 minutes DVT Prophylaxis: Xarelto Discharge Plan - Med Rec/Dispo Referrals/Follow Up: Bradly Santa MD [Physician] - Moon Ruiz DO [Family Provider] - (Please schedule follow-up appointment for 1 week) Sharmila Instructions: Pulmonary Embolism (GEN) Prescriptions: New Rivaroxaban [Xarelto] 15 mg PO BID 21 Days #42 tab Rivaroxaban [Xarelto] 20 mg PO WS #30 tab Continue Omeprazole 40 mg PO DAILY #0 cap Gabapentin 100 mg PO BID #0 cap Cetirizine HCl [Zyrtec] 10 mg PO DAILY Diclofenac [Voltaren] 1 applic TP PRN PRN PRN Reason: Pain FentaNYL PATCH [Duragesic Patch] 25 mcg TD WEEKLY Metoprolol Succinate 75 mg PO DAILY Cholecalciferol (Vitamin D3) [Vitamin D3] 50,000 unit PO WEEKLY dilTIAZem HCl [Cartia Xt] 180 mg PO DAILY #0 Levothyroxine Sodium 150 mcg PO SUTUTHSA #0 tab Clyo-3 Fatty Acids/Fish Oil [Fish Oil 1,000 mg Capsule] 3,000 mg PO DAILY # 0 cap Melatonin 10 mg PO HS PRN PRN Reason: Insomnia Docusate Calcium [Stool Softener] 240 mg PO BID Levothyroxine Sodium 125 mcg PO MOWEFR - Disposition 01 Discharged Home, Self-Care - Dismissal Complete Discharge Instructions are:: Complete <Lorenzo Celis - Last Filed: 07/18/17 21:58> Discharge Information Date of admission: 07/17/17 15:05 Attending Physician: Lorenzo Celis MD Primary care physician: Moon Ruiz DO - Discharge Diagnosis (1) Bilateral pulmonary embolism Status: Acute Hospital Course This is a general summary of the patient's hospital course. For more details refer to the complete medical record. Hospital course: 07/17/17- admission Impression Bilateral pulmonary emboli Dyspnea with exertion Hypertension GABRIELLA Cardiac pacemaker Asthma Depression Plan Will admit patient to outpatient observation under the care of Dr. Celis for bilateral pulmonary emboli She did receive Lovenox 70mg subcutaneous 1 in the emergency room. Did discuss anticoagulation options, discussing risk and benefit of multiple options with patient. She prefers to use a newer agent. Will start Xarelto 15 milligrams twice a day this evening. Discussed risk of bleeding. Will obtain a 12-lead EKG and monitor patient. Cardiac telemetry for any cardiac dysrhythmias or cardiac strain. Obtain venous Doppler of bilateral lower extremities Patient may have regular diet She does this to be a full code and this order is written. Will discuss further orders and plan of care with attending, Dr. Celis At time of discharge medical care will return to primary care provider, Dr. Ruiz. Patient is planning to follow-up with Dr. Santa for echo and stress test for further cardiac evaluation. Will send document copy to his office. 07/18/17- Discharge Mrs Brice is seen and examined today. She reports that she is feeling good today and denies having dyspnea with exertion. She did have a repeat EKG done today which was reviewed by Dr. Celis and Dr. Yates. Serial troponins remain negative and patient is without any acute chest pain, shortness of breath or dizziness. She has been anticoagulated starting on Lovenox subcutaneous yesterday followed by initiation of Xarelto 15 milligrams twice a day. She is instructed to continue this for a total of 21 days at which time she will change dosages to serosa 20 milligrams daily. We did discuss that this will likely be a long-term plan for her anticoagulation. Given that this is her 2nd incidence of a pulmonary emboli. Up with primary care provider, Dr. Moon Ruiz next week, and also to contact Dr. Santa regarding new diagnosis of PE and planned outpatient studies. She is instructed to stay off of work until 07/21, and a work note is given. Patient is to resume all other current home medications. Seen and examined patient on same day as the above note. Agree with history, physical, assessment and plan. Comprehensive physical findings correlate to the above note. Documented on Dragon speech to text. Efforts to correct speech recognition errors performed, but variation may exist
== END 2017-07-18 14:45 | disposition home or self-care (01) ==
LOC: MED 12:01 → ED 12:01 → MED 15:00
PROVIDERS: ADMIT Family Medicine; ATTEND Family Medicine